=== PATIENT | female | born 1955 | race Caucasian/White ===

== ENCOUNTER 2016-11-12 15:22 | Inpatient (IN) ==
[2016-11-12] MEDS ORDERED: Pantoprazole 40 MG VIAL IVP STA (20:31)
[2016-11-12] MEDS ORDERED: Acetaminophen 325 MG TABLET PO PRN (20:31)
[2016-11-12] MEDS ORDERED: Albuterol 2.5 MG/3 ML NEBULIZER IH PRN (20:31)
[2016-11-12] MEDS ORDERED: Benzonatate 100 MG CAPSULE PO PRN (20:31)
[2016-11-12] MEDS ORDERED: Naloxone 0.4 MG/ML INJ IVP PRN (20:31)
[2016-11-12] MEDS ORDERED: *HR* Promethazine 25 MG/ML VIAL IVP PRN (20:31)
[2016-11-12] MEDS ORDERED: *HR* Morphine 2 MG/ML SYRINGE IVP PRN (20:31)
[2016-11-12] MEDS ORDERED: 0.9 % Sodium Chloride 1,000 ML IVC SCH (20:45)
[2016-11-12 21:29] LABS: Magnesium 1.5 mg/dL (1.6-2.6); Phosphorous 3.2 mg/dL (2.3-4.7)
[2016-11-12] MEDS: *HR* OxyCODONE Immed Rel 5 MG TABLET PO PRN (22:14)
[2016-11-12] MEDS: Famotidine 20 MG TABLET PO SCH (22:15)
[2016-11-12] MEDS: *HR* Enoxaparin 30 MG/0.3 ML SYRINGE SQ SCH (22:16)
[2016-11-12] MEDS: Nicotine 21 MG PATCH.TD24 TD SCH (22:16)
[2016-11-12] MEDS: Azithromycin 500 MG in D5% in Water 250 ML IVPB SCH (22:19)
--- NOTE | 2016-11-12 23:07 | Internal Med History&Physical ---
Date of Encounter: 11/12/16 Time of Encounter: 20:30 Assessment and Plan (1) Acute on chronic respiratory failure with hypoxia and hypercapnia Status: Acute . (2) Emphysema of lung Status: Chronic . Qualifiers: Emphysema type: unspecified Qualified Code(s): J43.9 - Emphysema, unspecified (3) Systemic inflammatory response syndrome (SIRS) associated with organ dysfunction Status: Acute . (4) Venous stasis ulcer of lower extremity Status: Chronic . Qualifiers: Laterality: unspecified laterality Qualified Code(s): I83.009 - Varicose veins of unspecified lower extremity with ulcer of unspecified site (5) Morbid obesity with BMI of 60.0-69.9, adult Status: Chronic . (6) Acute exacerbation of chronic obstructive airways disease Status: Inactive . Internal Medicine - H&P: HPI Chief complaint: Difficulty breathing Admitted From: Hospital to Hospital Transfer (Hospital transfer from [facility] ED) Plans for Post Hospital Care: Home History of present illness: Ms. Mcwilliams is a 60 year old female with history significant for COPD-emphysema, asthma, type 2 diabetes mellitus, hypertension, dyslipidemia, depression/ gen anxiety, GERD, chronic musculoskeletal pain, LE venostasis/rec stasis ulcer, H/ O DVT/chr anticoagulation (Warfarin), morbid obesity, former heavy smoker([id number]) The patient was visited and interviewed and examined. Patient is admitted to [facility] as a hospital transfer from [facility] emergency department where she presented via EMS from home with complaints of Difficulty Breathing. She reports a two-month history of progressive blood unrelenting shortness of breath. She has undergone multiple courses of outpatient therapy and ED visits. Patient has known history of COPD with reports of increasing shortness of breath over a four-day period of time that prompted her to call EMS services for assistance and ultimately transferred to the ED for assessment and disposition. Prior to transfer she received bronchodilator treatments at home and one in route given via EMS services to the ED plus Solu-Medrol. She reports a persistent nonproductive cough. Fever as high as 100 degrees. Chest tightness chills malaise. She had recently been treated with a course of oral antibiotics and tapering steroids for presumed community-acquired infection described as acute bronchitis. Her current symptoms followed after completion of her course of outpatient therapy. Outpatient medical treatment compliance cannot be validated at this time. Findings in the ED: temperature 98.7, pulse 117 respiration 24 BP 145/87. O2 saturation 87% RA; 98% BiPAP. WBC 11.4 hemoglobin and platelets 363,000. MCV 77.5 MCH 22.1. RDW 19.2. Differential shows an increase in neutrophils. Arterial blood gas pH 7.29 PCO2 81 PO2 157 bicarbonate 39. O2 saturation 99% at FiO2 50% BiPAP. Metabolic panel normal except chloride 96 carbon dioxide 34 glucose 132. BUN 15 creatinine 0.7. Osmolality 291. Hepatic function normal. Albumin 3.2 total 7.6. Troponin 0.01 BNP 35. Chest x-ray demonstrated pulmonary vascular indistinctness and perihilar prominence suggesting mild interstitial pulmonary edema. Minimal bibasilar atelectasis. No pneumothorax. No pleural effusion. Heart size stable. EKG demonstrated sinus tachycardia. No acute ischemic changes. Preliminary impression suggest acute on chronic, hypoxic-hypercapnic respiratory failure secondary to acute exacerbation of chronic obstructive pulmonary disease and associated interstitial pulmonary edema/pneumonitis. Systemic inflammatory response syndrome criteria met at the time of presentation. Findings suggestive of acute bronchitis-bronchiolitis/ interstitial pneumonia. Presentation is complicated by underlying chronic hypoxic respiratory failure. The patient reports compliance with her Coumadin therapy as well as tobacco abstinence. Rule out reurrent DVT/PE. Rule out ACS/ UA/CHF. The patient presents risk for acute clinical decline and morbidity given her presenting chief complaints, findings and comorbidities. Workup and treatment will proceed comprehensively. Cumulative laboratory and radiographic data base was reviewed, considered and discussed. Pertinent ancillary medical records including ECW and PCI documentation was reviewed and considered. Given the patient's presenting concerns, past medical history, clinical findings and symptoms, she is admitted at this time will undergo further evaluation and disposition. Orders were written as per the computerized physician recorder of deeds system.......................................................................... .................... Consultative opinions will be sought as clinical circumstances justify. Pain management needs will be addressed. Laboratory and radiographic data base will be updated as appropriate. Studies include: Cultures blood urine and sputum, PT/INR, APTT, cardiac injury panel, BNP, CPK, metabolic and hematologic panel, magnesium, phosphorus, ionized calcium, thyroid panel, lipid profile, A1c, C-pep, CRP, sed rate, respiratory infection profile, respiratory virus panel, blood gas, UA, lactic acid, serologies, etc. Precautions: Aspiration, fall, delirium protocol/surveillance initiated. Telemetry with continuous hemodynamic monitoring and pulse oximetry initiated. Empiric antibody coverage: Intravenous Rocephin and azithromycin pending culture data. Special studies: CT/CTA chest, chest x-ray, telemetry, EKG, LE venous duplex, echocardiogram. Pulmonary toilet: Incentive spirometry, aerosol bronchodilator, mucolytic, antitussive, supplemental oxygen. Corticosteroid therapy. CPAP/BiPAP supplemental oxygen delivery. Aerosol Mucomyst therapy. Fluid and electrolyte repletion efforts will proceed. Careful attention to fluid balance and renal recovery will be emphasized. Avoidance of nephrotoxic exposure and adverse drug drug interaction in the setting of impaired renal function will be monitored closely. Acute coronary syndrome protocol/surveillance initiated. DVT and PUD prophylaxis initiated: PPI therapy, intermittent pneumatic foot pumps. SQ heparin/Lovenox pending therapeutic INR per Coumadin dosing. Early ambulation will be encouraged. Pharmacy to provide Coumadin dosing adjustment based on therapeutic INR measurement (~2-3). Wound Care consultation. Immunization updates recommended. Influenza and pneumococcal vaccinations as part of ongoing preventative healthcare recommendations strongly recommended. Smoking cessation counseling briefly addressed. Patient is a former heavy smoker. Advanced care directive discussion briefly addressed. Patient does not declare any healthcare restrictions at this time. Cardiovascular risk appraisal and cardiovascular risk reduction efforts will be emphasized. Physical and occupational therapy consulted to evaluate patient's functional capacity and progress mobility as her circumstances permit. Sliding scale insulin coverage, ADA dietary restraint and schedule an as-needed basis fingerstick glucose assessments were initiated. Nutrition/diabetes education counseling may be considered as circumstances justify. Outpatient medication schedules will be reviewed, confirmed and facilitated as appropriate. Reconciliation of home treatments including adjustments, substitutions and reintroduction into the treatment regimen will address necessary maintenance therapies for chronic pre-existing medical conditions. Plan of care has been reviewed and discussed in detail with the patient. Questions addressed. Hospital course will be dependent upon clinical findings, treatment response and potential consultative interventions. Patient is at risk for further acute clinical decline and morbidity due to her presenting chief complaints, findings and comorbid conditions. Condition is serious. Prognosis is guarded. CODE STATUS is full. Past Med Surg Social Fam HX - Past Medical History Source: old records reviewed Medical history: arthritis, asthma, COPD, diabetes, GERD, hyperlipidemia, hypertension, osteoporosis, venous stasis, other Psychiatric history: anxiety, depression, other - Past Surgical History Surgical History: other - Social History Smoking Status: Former smoker Smokeless Tobacco Status: No Alcohol use: none Drug use: none Occupational status: disabled Current living situation: With Family Activity Level: Independent ambulation, Mostly sedentary Recent Out of Country Travel Within the Last 8 Weeks: No Exposure or Possible Exposure to Illness During Travel: No Internal Medicine - H&P: Meds Cyclobenzaprine [Flexeril] 10 mg PO TID 08/21/16 [History] FLUoxetine HCl [Prozac] 20 mg PO DAILY 08/21/16 [History] Fluticasone/Salmeterol [Advair 250-50 Diskus] 1 each IH BID 08/21/16 [History] Liraglutide [Victoza 2-Dany] 1.8 ml SQ DAILY 08/21/16 [History] Montelukast [Singulair] 10 mg PO DAILY 08/21/16 [History] OxyCODONE/APAP 7.5/325 [Percocet 7.5/325 MG] 1 each PO Q6HR PRN 08/21/16 [ History] Promethazine [Phenergan] 25 mg PO BID PRN 08/21/16 [History] Ipratropium Neb [Atrovent Neb] 0.5 mg IH Q6HR #60 vial.neb 09/12/16 [Rx] Losartan Potassium [Cozaar] 50 mg PO DAILY 09/12/16 [History] Pravastatin Sodium [Pravachol] 40 mg PO DAILY 09/12/16 [History] Albuterol Sulfate [Proair Respiclick] 90 mcg IH Q4-6H PRN #1 aer.pow.ba [Rx] PredniSONE 40 mg PO DAILY #30 tablet 10/27/16 [Rx] Albuterol Neb [Proventil Neb] 2.5 mg IH QID PRN 11/13/16 [History] Esomeprazole Magnesium [Nexium 24Hr] 22.3 mg PO DAILY 11/13/16 [History] Oxygen 2 l NS HS 11/13/16 [History] Insulin Regular U-500 [HumuLIN R U-500] 60 unit SQ TIDWM 11/14/16 [History] Alprazolam [Xanax 0.25 MG Tablet] 0.25 mg PO HS PRN #7 tablet 11/18/16 [Rx] Levofloxacin 750 mg PO 1300 #3 tablet 11/18/16 [Rx] Rivaroxaban [Xarelto] 20 mg PO 1700 #30 tablet 11/18/16 [Rx] Allergies cetirizine [From [facility]] Allergy (Verified 11/13/16 08:44) Swelling of Lip/Tongue/Throat codeine Adverse Reaction (Verified 11/13/16 08:44) Nausea lisinopril Adverse Reaction (Verified 11/13/16 08:44) Cough All Systems PM: A 10-system review of systems was performed and is negative for pertinent findings except as documented above in the HPI. - Constitutional Constitutional: as per HPI, chills, fever(s), malaise, no night sweats - EENT Eyes: as per HPI, no change in vision, no discharge, no pain, no photophobia Ears: as per HPI, no ear discharge, no ear pain, no tinnitus Nose, mouth and throat: as per HPI, nasal congestion, post-nasal drip, no dysphagia, no nasal discharge, no neck pain, no sore throat - Cardiovascular Cardiovascular ROS IM: as per HPI, edema, no chest pain, no diaphoresis, no dyspnea, no lightheadedness, no palpitations, no syncope - Respiratory Respiratory: as per HPI, cough, dyspnea, dyspnea on exertion, wheezing, chest congestion, no hemoptysis, no excessive phlegm production - Gastrointestinal Gastrointestinal: as per HPI, no abdominal pain, no diarrhea, no hematemesis, no hematochezia, no melena, no nausea, no vomiting - Genitourinary Genitourinary: as per HPI, no change in urinary stream, no dysuria, no flank pain, no hematuria - Musculoskeletal Musculoskeletal ROS IM: as per HPI, no numbness, no tingling - Integumentary Integumentary IM: as per HPI, erythema, non-healing lesions, skin ulcer, other, no rash, no unusual bruising - Neurological Neurological ROS: as per HPI, no confusion, no convulsions, no focal weakness, no numbness, no tingling, no tremor(s) - Psychiatric Psychiatric: as per HPI - Endocrine Endocrine IM: as per HPI - Hematologic/Lymphatic Hematologic/Lymphatic: as per HPI, no easy bruising - Allergic/Immunologic Allergic/Immunologic: as per HPI - Constitutional Vitals: Temp Pulse Resp BP Pulse Ox 97.7 F 107 24 132/74 94 L 11/12/16 19:18 11/12/16 19:18 11/12/16 19:18 11/12/16 19:18 11/12/16 19:18 General appearance: Present: mild distress, A&O X 3, morbidly obese, answers questions appropriately - Head Head exam: Present: atraumatic, normocephalic - Eye Eye exam: Present: EOMI, PERRL, conjuntiva pink, sclera anicteric Pupils: Present: normal accommodation, PERRL - ENT ENT exam: Present: mucous membranes moist, normal oropharynx - Neck Neck exam general surgery: Present: full ROM, supple, trachea midline. Absent: lymphadenopathy - Respiratory Respiratory exam: Present: chest wall tenderness, decreased breath sounds, rhonchi, wheezes. Absent: accessory muscle use, rales - Cardiovascular Cardiovascular exam: Present: distant heart sounds, RRR, +S1, +S2. Absent: diastolic murmur, gallop, rubs, systolic murmur - GI/Abdominal GI/Abdominal exam: Present: diminished bowel sounds, distended, soft, no peritoneal signs. Absent: tenderness - Extremities Exam Extremities exam: Present: full ROM, warm, radial pulses palpable and symetrical. Absent: calf tenderness, cyanotic, pedal edema - Neurological Exam Neurological exam: Present: alert, CN II-XII intact, oriented X3, no focal deficits. Absent: pronater drift, facial droop, speech deficit - Psychiatric Psychiatric exam: Present: normal affect, normal mood - Skin Skin exam: Present: dry, intact, warm. Absent: petechiae, rash, urticaria, vesicles Internal Med - H&P Results - Labs CBC & Chem 7: 11/18/16 05:44 11/18/16 05:44 Labs: Cardiac Enzymes 11/12/16 Range/Units 21:10 Troponin I 0.03 (0-0.03) ng/mL Abnormal lab results RBC 5.10 M/mcL (3.82-4.97) H 11/18/16 05:44 Hgb 11.2 g/dL (11.5-15.4) L 11/18/16 05:44 MCV 75.3 fL (83.0-100.0) L 11/18/16 05:44 MCH 22.0 pg (28.0-33.3) L 11/18/16 05:44 MCHC 29.2 g/dL (31.6-35.5) L 11/18/16 05:44 RDW 19.1 % (11.5-14.5) H 11/18/16 05:44 Hypochromasia Present (Not Present) A 11/16/16 05:04 Anisocytosis 1+ (Not Present) A 11/16/16 05:04 Microcytosis Present (Not Present) A 11/16/16 05:04 ESR >= 130 mm/hr (0-15) H 11/13/16 04:03 PT 15.2 Seconds (9.4-12.1) H 11/17/16 04:14 ABG pCO2 74 mmHg (35-45) H* 11/14/16 10:45 ABG pO2 76 mmHg (85-104) L 11/14/16 10:45 ABG HCO3 40.9 mEQ/L (21-27) H 11/14/16 10:45 ABG Total CO2 43.2 mEq/L (20-26) H 11/14/16 10:45 ABG O2 Saturation 94 % (95-98) L 11/14/16 10:45 ABG Base Excess 12.3 mEq/L (-2.0 to 3.0) H 11/14/16 10:45 Chloride 94 mEq/L (98-109) L 11/18/16 05:44 Carbon Dioxide 30 mEq/L (19-29) H 11/18/16 05:44 BUN 24 mg/dL (7-20) H 11/18/16 05:44 BUN/Creatinine Ratio 34 (6-26) H 11/18/16 05:44 Glucose 386 mg/dL (70-99) H 11/18/16 05:44 POC Glucose 347 (58-89) H 11/18/16 07:59 Hemoglobin A1c 6.3 % (-5.6) H 11/13/16 04:03 Calculated Osmolality 302 (280-300) H 11/18/16 05:44 Magnesium 1.5 mg/dL (1.6-2.6) L 11/12/16 21:10 C-Reactive Protein 35 mg/L (Less than 5) H 11/12/16 21:10 Albumin 3.1 g/dL (3.5-5.0) L 11/18/16 05:44 Globulin 4.1 g/dL (2.4-3.5) H 11/18/16 05:44 Albumin/Globulin Ratio 0.8 (1.1-2.2) L 11/18/16 05:44 LDL Cholesterol, Calc 121 mg/dL (0-99) H 11/13/16 04:03 Urine Protein 100 mg/dL (Neg-Trace) H 11/12/16 Unknown Urine Glucose (UA) 100 mg/dL (Normal) H 11/12/16 Unknown Urine Blood Moderate (Negative) H 11/12/16 Unknown Urine Microscopic RBC 30-50 per hpf (0-3) H 11/12/16 Unknown Ur Squamous Epith Cells Many per lpf (None-Few) H 11/12/16 Unknown Laboratory Last Values WBC 8.3 K/mcL (4.3-11.1) 11/18/16 05:44 RBC 5.10 M/mcL (3.82-4.97) H 11/18/16 05:44 Hgb 11.2 g/dL (11.5-15.4) L 11/18/16 05:44 Hct 38.4 % (35.3-44.9) 11/18/16 05:44 MCV 75.3 fL (83.0-100.0) L 11/18/16 05:44 MCH 22.0 pg (28.0-33.3) L 11/18/16 05:44 MCHC 29.2 g/dL (31.6-35.5) L 11/18/16 05:44 RDW 19.1 % (11.5-14.5) H 11/18/16 05:44 Plt Count 298 K/mcL (140-400) 11/18/16 05:44 MPV 10.6 fL (9.4-12.4) 11/18/16 05:44 Immature Gran % 1.1 % (0-4) 11/18/16 05:44 Seg Neutrophils % 87.5 % 11/18/16 05:44 Lymphocytes % 8.6 % 11/18/16 05:44 Monocytes % 2.7 % 11/18/16 05:44 Eosinophils % 0.0 % 11/18/16 05:44 Basophils % 0.1 % 11/18/16 05:44 Neutrophils # 7.3 K/mcL (1.6-8.9) 11/18/16 05:44 Lymphocytes # 0.7 K/mcL (0.6-4.6) 11/18/16 05:44 Monocytes # 0.2 K/mcL (0.0-1.3) 11/18/16 05:44 Eosinophils # 0.0 K/mcL (0.0-0.6) 11/18/16 05:44 Basophils # 0.0 K/mcL (0.0-0.2) 11/18/16 05:44 Platelet Estimate Normal (Normal) 11/16/16 05:04 Hypochromasia Present (Not Present) A 11/16/16 05:04 Anisocytosis 1+ (Not Present) A 11/16/16 05:04 Microcytosis Present (Not Present) A 11/16/16 05:04 ESR >= 130 mm/hr (0-15) H 11/13/16 04:03 PT 15.2 Seconds (9.4-12.1) H 11/17/16 04:14 INR 1.4 11/17/16 04:14 ABG pH 7.35 pH Units (7.32-7.45) 11/14/16 10:45 ABG pCO2 74 mmHg (35-45) H* 11/14/16 10:45 ABG pO2 76 mmHg (85-104) L 11/14/16 10:45 ABG HCO3 40.9 mEQ/L (21-27) H 11/14/16 10:45 ABG Total CO2 43.2 mEq/L (20-26) H 11/14/16 10:45 ABG O2 Saturation 94 % (95-98) L 11/14/16 10:45 ABG Base Excess 12.3 mEq/L (-2.0 to 3.0) H 11/14/16 10:45 Liter Flow 4 L/MIN 11/14/16 10:45 Blood Gas Modality NC 11/14/16 10:45 Inspired O2 36 % 11/14/16 10:45 Sodium 136 mEq/L (136-145) 11/18/16 05:44 Potassium 4.4 mEq/L (3.5-4.5) 11/18/16 05:44 Chloride 94 mEq/L (98-109) L 11/18/16 05:44 Carbon Dioxide 30 mEq/L (19-29) H 11/18/16 05:44 BUN 24 mg/dL (7-20) H 11/18/16 05:44 Creatinine 0.71 mg/dL (0.57-1.11) 11/18/16 05:44 Est GFR ( Amer) > 60 (> 60) 11/18/16 05:44 Est GFR (Non-Af Amer) > 60 (> 60) 11/18/16 05:44 BUN/Creatinine Ratio 34 (6-26) H 11/18/16 05:44 Glucose 386 mg/dL (70-99) H 11/18/16 05:44 POC Glucose 347 (58-89) H 11/18/16 07:59 Est Mean Plasma Glucose 134 mg/dl 11/13/16 04:03 Hemoglobin A1c 6.3 % (-5.6) H 11/13/16 04:03 Calculated Osmolality 302 (280-300) H 11/18/16 05:44 Lactic Acid 1.5 mmol/L (0.5-2.2) 11/12/16 21:10 Calcium 9.5 mg/dL (8.6-10.8) 11/18/16 05:44 Phosphorus 3.2 mg/dL (2.3-4.7) 11/12/16 21:10 Magnesium 1.5 mg/dL (1.6-2.6) L 11/12/16 21:10 Total Bilirubin 0.5 mg/dL (0.2-1.2) 11/18/16 05:44 AST 9 Units/L (5-34) 11/18/16 05:44 ALT 17 Units/L (0-55) 11/18/16 05:44 Alkaline Phosphatase 87 Units/L (38-126) 11/18/16 05:44 Troponin I 0.01 ng/mL (0-0.03) 11/13/16 09:43 C-Reactive Protein 35 mg/L (Less than 5) H 11/12/16 21:10 B-Natriuretic Peptide 75 pg/mL (0-100) 11/13/16 04:03 Serum Total Protein 7.2 g/dL (6.0-8.3) 11/18/16 05:44 Albumin 3.1 g/dL (3.5-5.0) L 11/18/16 05:44 Globulin 4.1 g/dL (2.4-3.5) H 11/18/16 05:44 Albumin/Globulin Ratio 0.8 (1.1-2.2) L 11/18/16 05:44 Triglycerides 118 mg/dL (< 150) 11/13/16 04:03 Cholesterol 195 mg/dL (< 200) 11/13/16 04:03 LDL Cholesterol, Calc 121 mg/dL (0-99) H 11/13/16 04:03 VLDL Cholesterol, Calc 24 mg/dL (< 31) 11/13/16 04:03 HDL Cholesterol 50 mg/dL (40-59) 11/13/16 04:03 Cholesterol/HDL Ratio 3.9 (0-4.9) 11/13/16 04:03 TSH 0.602 mcIU/mL (0.350-4.840) 11/13/16 04:03 Urine Color Yellow (Yellow) 11/12/16 Unknown Urine Clarity Clear (Clear) 11/12/16 Unknown Urine pH 6.0 pH Units (5.0-8.0) 11/12/16 Unknown Ur Specific [place] 1.019 (1.010-1.025) 11/12/16 Unknown Urine Protein 100 mg/dL (Neg-Trace) H 11/12/16 Unknown Urine Glucose (UA) 100 mg/dL (Normal) H 11/12/16 Unknown Urine Ketones Negative mg/dL (Negative) 11/12/16 Unknown Urine Blood Moderate (Negative) H 11/12/16 Unknown Urine Nitrite Negative (Negative) 11/12/16 Unknown Urine Bilirubin Negative (Negative) 11/12/16 Unknown Urine Urobilinogen Normal mg/dL (Normal) 11/12/16 Unknown Ur Leukocyte Esterase Negative (Negative) 11/12/16 Unknown Urine Microscopic RBC 30-50 per hpf (0-3) H 11/12/16 Unknown Urine Microscopic WBC 0-3 per hpf (0-3) 11/12/16 Unknown Ur Squamous Epith Cells Many per lpf (None-Few) H 11/12/16 Unknown Urine Bacteria None Seen per hpf (None-Few) 11/12/16 Unknown Hyaline Casts None Seen per lpf (None-Few) 11/12/16 Unknown - Impressions Vital Signs Temp Pulse Resp BP Pulse Ox 11/12/16 19:18 97.7 F 107 24 132/74 94 L 11/12/16 18:55 20 94 L Intake and Output 11/12/16 11/12/16 11/12/16 07:59 15:59 23:59 Output Total 450 / 450 Balance -450 / -450 Output: Catheter 450 / 450 Other: Weight 155.8 kg Blood Glucose* 288 Patient Weight 11/12/16 23:59 Weight 155.8 kg Cardiac Enzymes 11/12/16 Range/Units 21:10 Troponin I 0.03 (0-0.03) ng/mL Abnormal lab results Magnesium 1.5 mg/dL (1.6-2.6) L 11/12/16 21:10 C-Reactive Protein 35 mg/L (Less than 5) H 11/12/16 21:10 Allergies Allergy/AdvReac Type Severity Reaction Status Date / Time cetirizine [From [facility]] Allergy Swelling Verified 10/27/16 14:31 of Lip/Tongue/Throat codeine AdvReac Nausea Verified 10/27/16 14:31 lisinopril AdvReac Cough Verified 10/27/16 14:31 Laboratory Results Lactic Acid 1.5 mmol/L (0.5-2.2) 11/12/16 21:10 Phosphorus 3.2 mg/dL (2.3-4.7) 11/12/16 21:10 Magnesium 1.5 mg/dL (1.6-2.6) L 11/12/16 21:10 Troponin I 0.03 ng/mL (0-0.03) 11/12/16 21:10 C-Reactive Protein 35 mg/L (Less than 5) H 11/12/16 21:10 Microbiology 11/12/16 21:07 Peripheral Venipuncture Blood Culture - Final No growth. 11/12/16 21:10 Peripheral Venipuncture Blood Culture - Final No growth. 11/14/16 20:30 Sputum Sputum Culture - Final Laboratory Results WBC 8.3 K/mcL (4.3-11.1) 11/18/16 05:44 RBC 5.10 M/mcL (3.82-4.97) H 11/18/16 05:44 Hgb 11.2 g/dL (11.5-15.4) L 11/18/16 05:44 Hct 38.4 % (35.3-44.9) 11/18/16 05:44 MCV 75.3 fL (83.0-100.0) L 11/18/16 05:44 MCH 22.0 pg (28.0-33.3) L 11/18/16 05:44 MCHC 29.2 g/dL (31.6-35.5) L 11/18/16 05:44 RDW 19.1 % (11.5-14.5) H 11/18/16 05:44 Plt Count 298 K/mcL (140-400) 11/18/16 05:44 MPV 10.6 fL (9.4-12.4) 11/18/16 05:44 Immature Gran % 1.1 % (0-4) 11/18/16 05:44 Seg Neutrophils % 87.5 % 11/18/16 05:44 Lymphocytes % 8.6 % 11/18/16 05:44 Monocytes % 2.7 % 11/18/16 05:44 Eosinophils % 0.0 % 11/18/16 05:44 Basophils % 0.1 % 11/18/16 05:44 Neutrophils # 7.3 K/mcL (1.6-8.9) 11/18/16 05:44 Lymphocytes # 0.7 K/mcL (0.6-4.6) 11/18/16 05:44 Monocytes # 0.2 K/mcL (0.0-1.3) 11/18/16 05:44 Eosinophils # 0.0 K/mcL (0.0-0.6) 11/18/16 05:44 Basophils # 0.0 K/mcL (0.0-0.2) 11/18/16 05:44 Platelet Estimate Normal (Normal) 11/16/16 05:04 Hypochromasia Present (Not Present) A 11/16/16 05:04 Anisocytosis 1+ (Not Present) A 11/16/16 05:04 Microcytosis Present (Not Present) A 11/16/16 05:04 ESR >= 130 mm/hr (0-15) H 11/13/16 04:03 PT 15.2 Seconds (9.4-12.1) H 11/17/16 04:14 INR 1.4 11/17/16 04:14 ABG pH 7.35 pH Units (7.32-7.45) 11/14/16 10:45 ABG pCO2 74 mmHg (35-45) H* 11/14/16 10:45 ABG pO2 76 mmHg (85-104) L 11/14/16 10:45 ABG HCO3 40.9 mEQ/L (21-27) H 11/14/16 10:45 ABG Total CO2 43.2 mEq/L (20-26) H 11/14/16 10:45 ABG O2 Saturation 94 % (95-98) L 11/14/16 10:45 ABG Base Excess 12.3 mEq/L (-2.0 to 3.0) H 11/14/16 10:45 Liter Flow 4 L/MIN 11/14/16 10:45 Blood Gas Modality NC 11/14/16 10:45 Inspired O2 36 % 11/14/16 10:45 Sodium 136 mEq/L (136-145) 11/18/16 05:44 Potassium 4.4 mEq/L (3.5-4.5) 11/18/16 05:44 Chloride 94 mEq/L (98-109) L 11/18/16 05:44 Carbon Dioxide 30 mEq/L (19-29) H 11/18/16 05:44 BUN 24 mg/dL (7-20) H 11/18/16 05:44 Creatinine 0.71 mg/dL (0.57-1.11) 11/18/16 05:44 Est GFR ( Amer) > 60 (> 60) 11/18/16 05:44 Est GFR (Non-Af Amer) > 60 (> 60) 11/18/16 05:44 BUN/Creatinine Ratio 34 (6-26) H 11/18/16 05:44 Glucose 386 mg/dL (70-99) H 11/18/16 05:44 POC Glucose 347 (58-89) H 11/18/16 07:59 Est Mean Plasma Glucose 134 mg/dl 11/13/16 04:03 Hemoglobin A1c 6.3 % (-5.6) H 11/13/16 04:03 Calculated Osmolality 302 (280-300) H 11/18/16 05:44 Lactic Acid 1.5 mmol/L (0.5-2.2) 11/12/16 21:10 Calcium 9.5 mg/dL (8.6-10.8) 11/18/16 05:44 Phosphorus 3.2 mg/dL (2.3-4.7) 11/12/16 21:10 Magnesium 1.5 mg/dL (1.6-2.6) L 11/12/16 21:10 Total Bilirubin 0.5 mg/dL (0.2-1.2) 11/18/16 05:44 AST 9 Units/L (5-34) 11/18/16 05:44 ALT 17 Units/L (0-55) 11/18/16 05:44 Alkaline Phosphatase 87 Units/L (38-126) 11/18/16 05:44 Troponin I 0.01 ng/mL (0-0.03) 11/13/16 09:43 C-Reactive Protein 35 mg/L (Less than 5) H 11/12/16 21:10 B-Natriuretic Peptide 75 pg/mL (0-100) 11/13/16 04:03 Serum Total Protein 7.2 g/dL (6.0-8.3) 11/18/16 05:44 Albumin 3.1 g/dL (3.5-5.0) L 11/18/16 05:44 Globulin 4.1 g/dL (2.4-3.5) H 11/18/16 05:44 Albumin/Globulin Ratio 0.8 (1.1-2.2) L 11/18/16 05:44 Triglycerides 118 mg/dL (< 150) 11/13/16 04:03 Cholesterol 195 mg/dL (< 200) 11/13/16 04:03 LDL Cholesterol, Calc 121 mg/dL (0-99) H 11/13/16 04:03 VLDL Cholesterol, Calc 24 mg/dL (< 31) 11/13/16 04:03 HDL Cholesterol 50 mg/dL (40-59) 02/02/17 04:03 Cholesterol/HDL Ratio 3.9 (0-4.9) 11/13/16 04:03 TSH 0.602 mcIU/mL (0.350-4.840) 11/13/16 04:03 Urine Color Yellow (Yellow) 11/12/16 Unknown Urine Clarity Clear (Clear) 11/12/16 Unknown Urine pH 6.0 pH Units (5.0-8.0) 11/12/16 Unknown Ur Specific [place] 1.019 (1.010-1.025) 11/12/16 Unknown Urine Protein 100 mg/dL (Neg-Trace) H 11/12/16 Unknown Urine Glucose (UA) 100 mg/dL (Normal) H 11/12/16 Unknown Urine Ketones Negative mg/dL (Negative) 11/12/16 Unknown Urine Blood Moderate (Negative) H 11/12/16 Unknown Urine Nitrite Negative (Negative) 11/12/16 Unknown Urine Bilirubin Negative (Negative) 11/12/16 Unknown Urine Urobilinogen Normal mg/dL (Normal) 11/12/16 Unknown Ur Leukocyte Esterase Negative (Negative) 11/12/16 Unknown Urine Microscopic RBC 30-50 per hpf (0-3) H 11/12/16 Unknown Urine Microscopic WBC 0-3 per hpf (0-3) 11/12/16 Unknown Ur Squamous Epith Cells Many per lpf (None-Few) H 11/12/16 Unknown Urine Bacteria None Seen per hpf (None-Few) 11/12/16 Unknown Hyaline Casts None Seen per lpf (None-Few) 11/12/16 Unknown
[2016-11-12 23:55] LABS: Bilirubin,Urine Negative (Negative); Blood,Urine Moderate (Negative); Clarity,Urine Clear (Clear); Color,Urine Yellow (Yellow); Glucose,Urine (UA) 100 mg/dL (Normal); Ketones,Urine Negative (Negative); Leukocyte Esterase,Urine Negative (Negative); Nitrite,Urine Negative (Negative); Protein,Urine 100 mg/dL (Neg-Trace); Specific Gravity,Urine 1.019 (1.010-1.025); Urobilinogen,Urine Normal (Normal)
[2016-11-12 23:56] LABS: Bacteria,Urine None Seen per hpf (None-Few); Hyaline Casts,Urine None Seen per lpf (None-Few); RBC,Urine 30-50 per hpf (0-3); Squamous Epithelial Cell,Urine Many per lpf (None-Few); WBC,Urine 0-3 per hpf (0-3)
[2016-11-13] MEDS: Azithromycin 500 MG in D5% in Water 250 ML IVPB SCH
[2016-11-13] MEDS ORDERED: *HR* Dextrose 50 % in Water (Syg) 50 ML SYRINGE IVP PRN (00:38)
[2016-11-13] MEDS ORDERED: Dextrose Gel 15 GM PO PRN ×2 (00:38)
[2016-11-13] MEDS ORDERED: D5% in Water 1,000 ML IV PRN (00:38)
[2016-11-13 05:08] LABS: Hematocrit 36.1 % (35.3-44.9); Hemoglobin 10.3 g/dL (11.5-15.4); Mean Corpuscular HGB Conc 28.5 g/dL (31.6-35.5); Mean Corpuscular Hemoglobin 22.3 pg (28.0-33.3); Mean Corpuscular Volume 78.1 fL (83.0-100.0); Mean Platelet Volume 9.8 fL (9.4-12.4); Monocytes # 0.2 K/mcL (0.0-1.3); Platelet Count 327 K/mcL (140-400); Red Blood Count 4.62 M/mcL (3.82-4.97)
[2016-11-13 05:11] LABS: Alanine Aminotransferase 17 Units/L (0-55); Albumin/Globulin Ratio 0.6 (1.1-2.2); Alkaline Phosphatase 107 Units/L (38-126); Aspartate Amino Transferase 16 Units/L (5-34); BUN/Creatinine Ratio 19 (6-26); Bilirubin,Total 0.1 mg/dL (0.2-1.2); Blood Urea Nitrogen 13 mg/dL (7-20); Calcium 9.5 mg/dL (8.6-10.8); Carbon Dioxide 34 mEq/L (19-29); Chloride 96 mEq/L (98-109); Chol/HDL Ratio 3.9 (0-4.9); Cholesterol 195 mg/dL (< 200); Globulin 4.7 g/dL (2.4-3.5); Glucose 286 mg/dL (70-99); HDL Cholesterol 50 mg/dL (40-59); LDL Cholesterol,Calculated 121 mg/dL (0-99); Osmolality,Calculated 301 (280-300); Potassium 4.4 mEq/L (3.5-4.5); Sodium 140 mEq/L (136-145); Total Protein 7.7 g/dL (6.0-8.3); Triglycerides 118 mg/dL (< 150); eGFR For African Americans > 60 (> 60); eGFR For Non-African Americans > 60 (> 60)
[2016-11-13 05:16] LABS: Hemoglobin A1C 6.3 %
[2016-11-13 05:33] LABS: Thyroid Stimulating Hormone 0.602 mcIU/mL (0.350-4.840)
[2016-11-13 06:08] LABS: Hypochromasia Present (Not Present); Lymphocytes # 0.7 K/mcL (0.6-4.6); Platelet Estimate Normal (Normal)
[2016-11-13 06:10] LABS: Microcytosis Present (Not Present)
[2016-11-13] MEDS: Insulin LISPRO 300 UNITS/3 ML VIAL SQ SCH ×5 (06:11→20:58)
[2016-11-13] MEDS: *HR* Enoxaparin 30 MG/0.3 ML SYRINGE SQ SCH ×2 (06:14→20:52)
[2016-11-13] MEDS ORDERED: INSULIN HUMAN REGULAR SQ SCH (09:00)
[2016-11-13] MEDS ORDERED: predniSONE 20 MG TABLET PO SCH (09:00)
[2016-11-13] MEDS ORDERED: Insulin DETEMIR 100 UNIT/ML X5UNITS SQ SCH ×2 (09:00→21:00)
[2016-11-13] MEDS: Nicotine 21 MG PATCH.TD24 TD SCH (09:33)
[2016-11-13] MEDS: FLUoxetine 20 MG CAPSULE PO SCH (09:42)
[2016-11-13] MEDS: Famotidine 20 MG TABLET PO SCH (09:42)
[2016-11-13] MEDS: (Liraglutide [Victoza 2-Pak] 1.8 ML) SQ SCH (10:06)
[2016-11-13] MEDS ORDERED: ALPRAZolam 0.5 MG TABLET PO PRN (11:00)
[2016-11-13] MEDS ORDERED: methylPREDNISolone 125 MG/2 ML VIAL IVP ONE ×2 (13:11→20:37)
[2016-11-13] MEDS ORDERED: Ipratropium/Albuterol Neb 3 ML IH SCH (13:15)
[2016-11-13] MEDS: ALPRAZolam 0.5 MG TABLET PO PRN (14:14)
[2016-11-13] MEDS: Levofloxacin 750 MG/150 ML 750 MG/150 ML BAG IVPB SCH (14:15)
[2016-11-13] MEDS: Ipratropium/Albuterol Neb 3 ML IH SCH ×2 (16:29→21:27)
[2016-11-13] MEDS: Piperacillin/Tazobactam 3.375 GM in D5% in Water (Mini-Bag+) 100 ML IVPB SCH (16:30)
[2016-11-13 16:41] LABS: ABG Base Excess 12.8 mEq/L (-2.0 to 3.0); ABG HCO3 42.3 mEQ/L (21-27); ABG Oxygen Saturation 100 % (95-98); ABG PH 7.31 pH Units (7.32-7.45); ABG PO2 204 mmHg (85-104); ABG TCO2 44.9 mEq/L (20-26)
[2016-11-13 16:42] LABS: ABG PCO2 84 mmHg (35-45)
[2016-11-13 16:43] LABS: Blood Gas FiO2 40 %
--- NOTE | 2016-11-13 16:56 | Internal Med Progress Note ---
Date of Encounter: 11/14/16 Time of Encounter: 16:54 - Assessment and plan (1) Acute on chronic respiratory failure with hypoxia and hypercapnia Current Visit: Yes Status: Acute Assessment and plan: Admitted with acute on chronic respiratory failure. Patient has a hypercapnia. Baseline PCO2 is in 70s. Repeat blood gas has improved as compared to the morning. will continue same treatment and will update. (2) Venous stasis ulcer of lower extremity Current Visit: Yes Status: Chronic Assessment and plan: chronic ulcer on lower extremity. has pseudomonas in the same. will start antipsudomonal abx Qualifiers: Laterality: unspecified laterality Qualified Code(s): I83.009 - Varicose veins of unspecified lower extremity with ulcer of unspecified site (3) Emphysema of lung Current Visit: Yes Status: Chronic Assessment and plan: Exacerbation of COPD - Antibiotics Methyl prednisone BDAs Qualifiers: Emphysema type: unspecified Qualified Code(s): J43.9 - Emphysema, unspecified - Subjective Interval history: seen and examined. Still SOB family at bedside. denies chest pain and Abdominal pain. - Constitutional Vitals: Temp Pulse Resp BP Pulse Ox 98 F 105 32 154/91 100 11/13/16 15:17 11/13/16 15:17 11/13/16 16:30 11/13/16 15:17 11/13/16 16:30 General appearance: Present: A&O X 3, morbidly obese, pleasant, answers questions appropriately - Head Head exam: Present: atraumatic, normocephalic - Eye Eye exam: Present: PERRL, conjuntiva pink, sclera anicteric Pupils: Present: PERRL - Neck Neck exam general surgery: Present: supple, trachea midline. Absent: lymphadenopathy - Respiratory Respiratory exam: Present: CTAB, rhonchi. Absent: accessory muscle use, rales, wheezes - Cardiovascular Cardiovascular exam: Present: RRR, +S1, +S2. Absent: diastolic murmur, gallop, rubs, systolic murmur - GI/Abdominal GI/Abdominal exam: Present: normal bowel sounds, soft, no peritoneal signs. Absent: distended, tenderness - Extremities Exam Extremities exam: Present: warm, radial pulses palpable and symetrical. Absent : calf tenderness, cyanotic, pedal edema - Neurological Exam Neurological exam: Present: CN II-XII intact, oriented X3, no focal deficits. Absent: pronater drift, facial droop, speech deficit - Skin Skin exam: Present: dry, intact Internal Medicine: Result - Labs CBC & Chem 7: 11/13/16 04:03 11/13/16 04:03 Labs: Short CBC 11/13/16 Range/Units 04:03 WBC 5.9 (4.3-11.1) K/mcL Hgb 10.3 L (11.5-15.4) g/dL Hct 36.1 (35.3-44.9) % Plt Count 327 (140-400) K/mcL Neutrophils # 5.0 (1.6-8.9) K/mcL BMP 11/13/16 04:03 Sodium 140 Potassium 4.4 Chloride 96 L Carbon Dioxide 34 H BUN 13 Creatinine 0.67 Glucose 286 H Calcium 9.5 Cardiac Enzymes 11/12/16 11/13/16 11/13/16 Range/Units 21:10 04:03 09:43 Troponin I 0.03 0.01 0.01 (0-0.03) ng/mL Liver Function 11/13/16 Range/Units 04:03 Total Bilirubin 0.1 L (0.2-1.2) mg/dL AST 16 (5-34) Units/L ALT 17 (0-55) Units/L Alkaline Phosphatase 107 (38-126) Units/L Albumin 3.0 L (3.5-5.0) g/dL Urine 11/12/16 Range/Units Unknown Urine Color Yellow (Yellow) Urine Clarity Clear (Clear) Urine pH 6.0 (5.0-8.0) pH Units Ur Specific [place] 1.019 (1.010-1.025) Urine Protein 100 H (Neg-Trace) mg/dL Urine Glucose (UA) 100 H (Normal) mg/dL - ABG Interpretation ABG results: ABG ABG pH 7.31 pH Units (7.32-7.45) L 11/13/16 16:35 ABG pCO2 84 mmHg (35-45) H* 11/13/16 16:35 ABG pO2 204 mmHg (85-104) H 11/13/16 16:35 ABG O2 Saturation 100 % (95-98) H 11/13/16 16:35 Consult Discharge Plan - Plan Referrals: Katie Taylor MD [Primary Care Provider] -
[2016-11-13] MEDS ORDERED: *HR* Warfarin 3 MG TABLET PO SCH (18:00)
[2016-11-13] MEDS ORDERED: Warfarin perPT PO PRN (18:00)
[2016-11-13] MEDS ORDERED: *HR* Warfarin 3 MG TABLET PO ONE (18:00)
[2016-11-13] MEDS ORDERED: Nystatin POWDER 30 GM BOTTLE TP PRN (18:43)
[2016-11-13] MEDS: *HR* OxyCODONE Immed Rel 5 MG TABLET PO PRN (19:00)
[2016-11-14] MEDS: Piperacillin/Tazobactam 3.375 GM in D5% in Water (Mini-Bag+) 100 ML IVPB SCH ×4 (00:45→23:02)
[2016-11-14] MEDS: Ipratropium/Albuterol Neb 3 ML IH SCH ×4 (03:41→22:24)
[2016-11-14] MEDS: ALPRAZolam 0.5 MG TABLET PO PRN (04:42)
[2016-11-14 05:26] LABS: INR 1.2; Prothrombin Time 13.2 Seconds (9.4-12.1)
[2016-11-14] MEDS: *HR* OxyCODONE Immed Rel 5 MG TABLET PO PRN (06:06)
[2016-11-14] MEDS: *HR* Enoxaparin 30 MG/0.3 ML SYRINGE SQ SCH (06:07)
[2016-11-14] MEDS: FLUoxetine 20 MG CAPSULE PO SCH (08:37)
[2016-11-14] MEDS: MethylPREDNISolone 40 MG/ML VIAL IVP SCH ×3 (08:38→23:02)
[2016-11-14] MEDS: Insulin LISPRO 300 UNITS/3 ML VIAL SQ SCH ×4 (08:42→20:34)
[2016-11-14] MEDS: (Liraglutide [Victoza 2-Pak] 1.8 ML) SQ SCH (08:43)
[2016-11-14] MEDS: Gabapentin 300 MG CAPSULE PO SCH ×2 (09:32→20:28)
[2016-11-14 10:59] LABS: ABG Base Excess 12.3 mEq/L (-2.0 to 3.0); ABG HCO3 40.9 mEQ/L (21-27); ABG Oxygen Saturation 94 % (95-98); ABG PH 7.35 pH Units (7.32-7.45); ABG PO2 76 mmHg (85-104); ABG TCO2 43.2 mEq/L (20-26)
[2016-11-14 11:01] LABS: ABG PCO2 74 mmHg (35-45)
[2016-11-14 11:02] LABS: Blood Gas FiO2 36 %; Blood Gas Liter Flow 4 L/MIN
[2016-11-14] MEDS: Levofloxacin 750 MG/150 ML 750 MG/150 ML BAG IVPB SCH (12:48)
--- NOTE | 2016-11-14 15:27 | Electrocardiograph Report ---
[place] [id number] Test Date: 2016-11-12 Pat Name: Allison Mcwilliams Department: 2001 Room: 2N3 Gender: F Heel Varnisher: : 1955 Requested By: Samir Villalta Order Number: [id number] Reading MD: Ashli Riley Measurements Intervals [place] Rate: 121 P: 53 AL: 156 QRS: 60 QRSD: 92 T: 42 QT: 278 QTc: 350 Interpretive Statements SINUS TACHYCARDIA WITH OCCASIONAL SUPRAVENTRICULAR PREMATURE COMPLEXES ABNORMAL RHYTHM ECG Electronically Signed On 11-14-2016 15:25:37 EST by Ashli Riley
[2016-11-14] MEDS: *HR* Rivaroxaban 10 MG TABLET PO SCH (16:28)
--- NOTE | 2016-11-14 17:53 | Internal Med Progress Note ---
Date of Encounter: 11/14/16 Time of Encounter: 17:51 - Assessment and plan (1) Acute on chronic respiratory failure with hypoxia and hypercapnia Current Visit: Yes Status: Acute Assessment and plan: Admitted with acute on chronic respiratory failure. Patient has a hypercapnia. Baseline PCO2 is in 70s. Repeat blood gas has improved as compared to the morning. will continue same treatment and will update. 11/14/2016 patient is at baseline PCO2 no tremors, drowsiness, Improved ABG will continue present treatment. (2) Venous stasis ulcer of lower extremity Current Visit: Yes Status: Chronic Assessment and plan: chronic ulcer on lower extremity. has pseudomonas in the same. will start antipsudomonal abx 11/14/2016 will continue present antibiotics. Qualifiers: Laterality: unspecified laterality Qualified Code(s): I83.009 - Varicose veins of unspecified lower extremity with ulcer of unspecified site (3) Emphysema of lung Current Visit: Yes Status: Chronic Assessment and plan: Exacerbation of COPD - Antibiotics Methyl prednisone BDAs Qualifiers: Emphysema type: unspecified Qualified Code(s): J43.9 - Emphysema, unspecified - Subjective Interval history: seen and examined. Still SOB family at bedside. denies chest pain and Abdominal pain. 11/14/2016 seen and examined. no new issues. family at bedside - Constitutional Vitals: Temp Pulse Resp BP Pulse Ox 98.1 F 124 18 166/101 92 L 11/14/16 15:40 11/14/16 15:40 11/14/16 15:40 11/14/16 15:40 11/14/16 16:54 General appearance: Present: A&O X 3, morbidly obese, pleasant, answers questions appropriately - Head Head exam: Present: atraumatic, normocephalic - Eye Eye exam: Present: PERRL, conjuntiva pink, sclera anicteric Pupils: Present: PERRL - Neck Neck exam general surgery: Present: supple, trachea midline. Absent: lymphadenopathy - Respiratory Respiratory exam: Present: CTAB. Absent: accessory muscle use, rales, rhonchi, wheezes - Cardiovascular Cardiovascular exam: Present: RRR, +S1, +S2. Absent: diastolic murmur, gallop, rubs, systolic murmur - GI/Abdominal GI/Abdominal exam: Present: normal bowel sounds, soft, no peritoneal signs. Absent: distended, tenderness - Extremities Exam Extremities exam: Present: warm, radial pulses palpable and symetrical. Absent : calf tenderness, cyanotic, pedal edema - Neurological Exam Neurological exam: Present: CN II-XII intact, oriented X3, no focal deficits. Absent: pronater drift, facial droop, speech deficit - Skin Skin exam: Present: dry, intact Internal Medicine: Result - Labs CBC & Chem 7: 11/13/16 04:03 11/13/16 04:03 - ABG Interpretation ABG results: ABG ABG pH 7.35 pH Units (7.32-7.45) 11/14/16 10:45 ABG pCO2 74 mmHg (35-45) H* 11/14/16 10:45 ABG pO2 76 mmHg (85-104) L 11/14/16 10:45 ABG O2 Saturation 94 % (95-98) L 11/14/16 10:45 PT/INR, D-dimer PT 13.2 Seconds (9.4-12.1) H 11/14/16 04:31 Consult Discharge Plan - Plan Referrals: Katie Taylor MD [Primary Care Provider] -
[2016-11-14] MEDS: *HR* OxyCODONE/APAP 5/325 TABLET PO PRN (20:28)
[2016-11-14] MEDS: ALPRAZolam 0.25 MG TABLET PO PRN (21:26)
[2016-11-15] MEDS: Ipratropium/Albuterol Neb 3 ML IH SCH ×4 (04:00→22:35)
[2016-11-15] MEDS: *HR* OxyCODONE/APAP 5/325 TABLET PO PRN ×3 (05:09→22:01)
[2016-11-15 06:15] LABS: INR 1.5; Prothrombin Time 16.9 Seconds (9.4-12.1)
[2016-11-15 06:21] LABS: Basophils % 0.2 %; Hemoglobin 10.5 g/dL (11.5-15.4)
[2016-11-15 06:23] LABS: Hematocrit 37.3 % (35.3-44.9); Immature Granulocytes % 1.2 % (0-4); Lymphocytes # 1.4 K/mcL (0.6-4.6); Lymphocytes % 23.3 %; Mean Corpuscular HGB Conc 28.2 g/dL (31.6-35.5); Mean Corpuscular Hemoglobin 21.9 pg (28.0-33.3); Mean Corpuscular Volume 77.9 fL (83.0-100.0); Mean Platelet Volume 10.2 fL (9.4-12.4); Monocytes # 0.2 K/mcL (0.0-1.3); Monocytes % 3.4 %; Neutrophils # 4.2 K/mcL (1.6-8.9); Platelet Count 312 K/mcL (140-400); Red Blood Count 4.79 M/mcL (3.82-4.97); Segmented Neutrophils % 71.9 %
[2016-11-15 06:28] LABS: Alanine Aminotransferase 18 Units/L (0-55); Albumin 3.1 g/dL (3.5-5.0); Albumin/Globulin Ratio 0.7 (1.1-2.2); Alkaline Phosphatase 88 Units/L (38-126); Aspartate Amino Transferase 14 Units/L (5-34); BUN/Creatinine Ratio 31 (6-26); Bilirubin,Total 0.3 mg/dL (0.2-1.2); Blood Urea Nitrogen 23 mg/dL (7-20); Calcium 9.7 mg/dL (8.6-10.8); Carbon Dioxide 36 mEq/L (19-29); Chloride 95 mEq/L (98-109); Globulin 4.5 g/dL (2.4-3.5); Glucose 281 mg/dL (70-99); Osmolality,Calculated 306 (280-300); Potassium 4.4 mEq/L (3.5-4.5); Sodium 141 mEq/L (136-145); Total Protein 7.6 g/dL (6.0-8.3); eGFR For African Americans > 60 (> 60); eGFR For Non-African Americans > 60 (> 60)
[2016-11-15 06:57] LABS: Hypochromasia Present (Not Present); Platelet Estimate Normal (Normal)
[2016-11-15] MEDS: Gabapentin 300 MG CAPSULE PO SCH ×2 (10:25→20:58)
[2016-11-15] MEDS: FLUoxetine 20 MG CAPSULE PO SCH (10:25)
[2016-11-15] MEDS: Piperacillin/Tazobactam 3.375 GM in D5% in Water (Mini-Bag+) 100 ML IVPB SCH ×2 (10:26→15:41)
[2016-11-15] MEDS: MethylPREDNISolone 40 MG/ML VIAL IVP SCH ×2 (10:26→15:40)
[2016-11-15] MEDS: Insulin LISPRO 300 UNITS/3 ML VIAL SQ SCH ×4 (10:27→20:59)
[2016-11-15] MEDS: (Liraglutide [Victoza 2-Pak] 1.8 ML) SQ SCH (10:28)
[2016-11-15] MEDS: Levofloxacin 750 MG/150 ML 750 MG/150 ML BAG IVPB SCH (15:39)
[2016-11-15] MEDS: *HR* Rivaroxaban 10 MG TABLET PO SCH (15:40)
[2016-11-15] MEDS: Nystatin POWDER 30 GM BOTTLE TP SCH ×2 (15:40→21:00)
--- NOTE | 2016-11-15 16:16 | Internal Med Progress Note ---
Date of Encounter: 11/15/16 Time of Encounter: 16:15 - Assessment and plan (1) Acute on chronic respiratory failure with hypoxia and hypercapnia Current Visit: Yes Status: Acute Assessment and plan: Admitted with acute on chronic respiratory failure. Patient has a hypercapnia. Baseline PCO2 is in 70s. Repeat blood gas has improved as compared to the morning. will continue same treatment and will update. 11/15/2016 symptomatically better no more using BiPAP on 4 L of oxygen and maintaining her saturation to around 92% will continue present treatment. (2) Venous stasis ulcer of lower extremity Current Visit: Yes Status: Chronic Assessment and plan: chronic ulcer on lower extremity. has pseudomonas in the same. will start antipsudomonal abx 11/15/2016 Day 3 abx. lesions o the foot appears much better Qualifiers: Laterality: unspecified laterality Qualified Code(s): I83.009 - Varicose veins of unspecified lower extremity with ulcer of unspecified site (3) Emphysema of lung Current Visit: Yes Status: Chronic Assessment and plan: Exacerbation of COPD - Antibiotics Methyl prednisone BDAs Qualifiers: Emphysema type: unspecified Qualified Code(s): J43.9 - Emphysema, unspecified (4) Diabetes mellitus Current Visit: Yes Status: Acute Assessment and plan: ACHS on insulin and will observe blood sugar very closely Qualifiers: Diabetes mellitus type: type 2 Diabetes mellitus complication status: with unspecified complications Diabetes mellitus 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 Still SOB family at bedside. denies chest pain and Abdominal pain. 11/15/2016 feels much better as compare to yesterday still has SOB cough present but less frequnt as compare to yesterday complains that she has occasional itch in folds. - Constitutional Vitals: Temp Pulse Resp BP Pulse Ox 98.3 F 109 20 177/97 95 11/15/16 15:21 11/15/16 15:21 11/15/16 16:09 11/15/16 15:21 11/15/16 16:09 General appearance: Present: A&O X 3, morbidly obese, pleasant, answers questions appropriately - Head Head exam: Present: atraumatic, normocephalic - Eye Eye exam: Present: PERRL, conjuntiva pink, sclera anicteric Pupils: Present: PERRL - Neck Neck exam general surgery: Present: supple, trachea midline. Absent: lymphadenopathy - Respiratory Respiratory exam: Present: CTAB. Absent: accessory muscle use, rales, rhonchi, wheezes - Cardiovascular Cardiovascular exam: Present: RRR, +S1, +S2. Absent: diastolic murmur, gallop, rubs, systolic murmur - GI/Abdominal GI/Abdominal exam: Present: normal bowel sounds, soft, no peritoneal signs. Absent: distended, tenderness - Extremities Exam Extremities exam: Present: warm, radial pulses palpable and symetrical. Absent : calf tenderness, cyanotic, pedal edema - Neurological Exam Neurological exam: Present: CN II-XII intact, oriented X3, no focal deficits. Absent: pronater drift, facial droop, speech deficit - Skin Skin exam: Present: dry, intact Internal Medicine: Result - Labs CBC & Chem 7: 11/15/16 05:37 11/15/16 05:37 Labs: Short CBC 11/15/16 Range/Units 05:37 WBC 5.9 (4.3-11.1) K/mcL Hgb 10.5 L (11.5-15.4) g/dL Hct 37.3 (35.3-44.9) % Plt Count 312 (140-400) K/mcL Neutrophils # 4.2 (1.6-8.9) K/mcL BMP 11/15/16 05:37 Sodium 141 Potassium 4.4 Chloride 95 L Carbon Dioxide 36 H BUN 23 H D Creatinine 0.74 Glucose 281 H Calcium 9.7 Liver Function 11/15/16 Range/Units 05:37 Total Bilirubin 0.3 (0.2-1.2) mg/dL AST 14 (5-34) Units/L ALT 18 (0-55) Units/L Alkaline Phosphatase 88 (38-126) Units/L Albumin 3.1 L (3.5-5.0) g/dL - ABG Interpretation ABG results: ABG ABG pH 7.35 pH Units (7.32-7.45) 11/14/16 10:45 ABG pCO2 74 mmHg (35-45) H* 11/14/16 10:45 ABG pO2 76 mmHg (85-104) L 11/14/16 10:45 ABG O2 Saturation 94 % (95-98) L 11/14/16 10:45 PT/INR, D-dimer PT 16.9 Seconds (9.4-12.1) H 11/15/16 05:37 Consult Discharge Plan - Plan Referrals: Katie Taylor MD [Primary Care Provider] -
[2016-11-16] MEDS: MethylPREDNISolone 40 MG/ML VIAL IVP SCH ×3 (00:48→18:03)
[2016-11-16] MEDS: Piperacillin/Tazobactam 3.375 GM in D5% in Water (Mini-Bag+) 100 ML IVPB SCH ×3 (00:48→18:10)
[2016-11-16] MEDS: Ipratropium/Albuterol Neb 3 ML IH SCH ×4 (03:45→21:28)
[2016-11-16 05:46] LABS: Hemoglobin 10.9 g/dL (11.5-15.4)
[2016-11-16 05:47] LABS: INR 1.4; Prothrombin Time 14.9 Seconds (9.4-12.1)
[2016-11-16 05:48] LABS: Basophils % 0.2 %; Lymphocytes # 0.9 K/mcL (0.6-4.6); Lymphocytes % 14.4 %; Mean Corpuscular HGB Conc 27.9 g/dL (31.6-35.5); Mean Corpuscular Hemoglobin 21.6 pg (28.0-33.3); Mean Corpuscular Volume 77.2 fL (83.0-100.0); Mean Platelet Volume 9.9 fL (9.4-12.4); Monocytes # 0.2 K/mcL (0.0-1.3); Monocytes % 3.2 %; Neutrophils # 5.1 K/mcL (1.6-8.9); Platelet Count 315 K/mcL (140-400); Red Blood Count 5.05 M/mcL (3.82-4.97); Segmented Neutrophils % 81.2 %
[2016-11-16 05:58] LABS: Alanine Aminotransferase 19 Units/L (0-55); Albumin 3.1 g/dL (3.5-5.0); Albumin/Globulin Ratio 0.7 (1.1-2.2); Alkaline Phosphatase 90 Units/L (38-126); Aspartate Amino Transferase 11 Units/L (5-34); BUN/Creatinine Ratio 29 (6-26); Bilirubin,Total 0.3 mg/dL (0.2-1.2); Blood Urea Nitrogen 21 mg/dL (7-20); Calcium 9.7 mg/dL (8.6-10.8); Carbon Dioxide 36 mEq/L (19-29); Chloride 93 mEq/L (98-109); Globulin 4.6 g/dL (2.4-3.5); Glucose 293 mg/dL (70-99); Osmolality,Calculated 302 (280-300); Potassium 4.6 mEq/L (3.5-4.5); Sodium 139 mEq/L (136-145); Total Protein 7.7 g/dL (6.0-8.3); eGFR For African Americans > 60 (> 60); eGFR For Non-African Americans > 60 (> 60)
[2016-11-16 06:32] LABS: Anisocytosis 1+ (Not Present); Hypochromasia Present (Not Present); Microcytosis Present (Not Present); Platelet Estimate Normal (Normal)
[2016-11-16] MEDS: Insulin LISPRO 300 UNITS/3 ML VIAL SQ SCH ×4 (08:40→22:05)
[2016-11-16] MEDS: Gabapentin 300 MG CAPSULE PO SCH ×2 (09:03→22:06)
[2016-11-16] MEDS: FLUoxetine 20 MG CAPSULE PO SCH (09:04)
[2016-11-16] MEDS: *HR* OxyCODONE/APAP 5/325 TABLET PO PRN ×3 (09:04→23:21)
[2016-11-16] MEDS: Nystatin POWDER 30 GM BOTTLE TP SCH ×3 (09:09→22:07)
[2016-11-16] MEDS: (Liraglutide [Victoza 2-Pak] 1.8 ML) SQ SCH (09:29)
[2016-11-16] MEDS: Levofloxacin 750 MG/150 ML 750 MG/150 ML BAG IVPB SCH (13:30)
--- NOTE | 2016-11-16 17:32 | Internal Med Progress Note ---
Date of Encounter: 11/16/16 Time of Encounter: 17:30 - Assessment and plan (1) Acute on chronic respiratory failure with hypoxia and hypercapnia Current Visit: Yes Status: Acute Assessment and plan: Admitted with acute on chronic respiratory failure. Patient has a hypercapnia. Baseline PCO2 is in 70s. Repeat blood gas has improved as compared to the morning. will continue same treatment and will update. 11/15/2016 symptomatically better no more using BiPAP on 4 L of oxygen and maintaining her saturation to around 92% will continue present treatment. 11/16/2016 clinically improved a lot. well responded to present treatment. possibly d/c home tomorrow (2) Venous stasis ulcer of lower extremity Current Visit: Yes Status: Chronic Assessment and plan: chronic ulcer on lower extremity. has pseudomonas in the same. will start antipsudomonal abx 11/15/2016 Day 3 abx. lesions o the foot appears much better 11/16/2016 day 4 abx lesions improved a lot. possibly home tomorrow Qualifiers: Laterality: unspecified laterality Qualified Code(s): I83.009 - Varicose veins of unspecified lower extremity with ulcer of unspecified site (3) Emphysema of lung Current Visit: Yes Status: Chronic Assessment and plan: Exacerbation of COPD - Antibiotics Methyl prednisone BDAs Qualifiers: Emphysema type: unspecified Qualified Code(s): J43.9 - Emphysema, unspecified (4) Diabetes mellitus Current Visit: Yes Status: Acute Assessment and plan: ACHS on insulin and will observe blood sugar very closely Qualifiers: Diabetes mellitus type: type 2 Diabetes mellitus complication status: with unspecified complications 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 Still SOB family at bedside. denies chest pain and Abdominal pain. 11/15/2016 feels much better as compare to yesterday still has SOB cough present but less frequent as compare to yesterday complains that she has occasional itch in folds. 11/16/2016 keen to go home still has occasional SOB no more itch infolds - Constitutional Vitals: Temp Pulse Resp BP Pulse Ox 98.2 F 111 18 176/93 92 L 11/16/16 15:54 11/16/16 15:54 11/16/16 16:29 11/16/16 15:54 11/16/16 16:29 General appearance: Present: A&O X 3, morbidly obese, pleasant, answers questions appropriately - Head Head exam: Present: atraumatic, normocephalic - Eye Eye exam: Present: PERRL, conjuntiva pink, sclera anicteric Pupils: Present: PERRL - Neck Neck exam general surgery: Present: supple, trachea midline. Absent: lymphadenopathy - Respiratory Respiratory exam: Present: CTAB. Absent: accessory muscle use, rales, rhonchi, wheezes - Cardiovascular Cardiovascular exam: Present: RRR, +S1, +S2. Absent: diastolic murmur, gallop, rubs, systolic murmur - GI/Abdominal GI/Abdominal exam: Present: normal bowel sounds, soft, no peritoneal signs. Absent: distended, tenderness - Extremities Exam Extremities exam: Present: warm, radial pulses palpable and symetrical. Absent : calf tenderness, cyanotic, pedal edema - Neurological Exam Neurological exam: Present: CN II-XII intact, oriented X3, no focal deficits. Absent: pronater drift, facial droop, speech deficit - Skin Skin exam: Present: dry, intact Internal Medicine: Result - Labs CBC & Chem 7: 11/16/16 05:04 11/16/16 05:04 Labs: Short CBC 11/16/16 Range/Units 05:04 WBC 6.3 (4.3-11.1) K/mcL Hgb 10.9 L (11.5-15.4) g/dL Hct 39.0 (35.3-44.9) % Plt Count 315 (140-400) K/mcL Neutrophils # 5.1 (1.6-8.9) K/mcL BMP 11/16/16 05:04 Sodium 139 Potassium 4.6 H Chloride 93 L Carbon Dioxide 36 H BUN 21 H Creatinine 0.72 Glucose 293 H Calcium 9.7 Liver Function 11/16/16 Range/Units 05:04 Total Bilirubin 0.3 (0.2-1.2) mg/dL AST 11 (5-34) Units/L ALT 19 (0-55) Units/L Alkaline Phosphatase 90 (38-126) Units/L Albumin 3.1 L (3.5-5.0) g/dL - ABG Interpretation ABG results: ABG ABG pH 7.35 pH Units (7.32-7.45) 11/14/16 10:45 ABG pCO2 74 mmHg (35-45) H* 11/14/16 10:45 ABG pO2 76 mmHg (85-104) L 11/14/16 10:45 ABG O2 Saturation 94 % (95-98) L 11/14/16 10:45 PT/INR, D-dimer PT 14.9 Seconds (9.4-12.1) H 11/16/16 05:04 Consult Discharge Plan - Plan Referrals: Katie Taylor MD [Primary Care Provider] -
[2016-11-16] MEDS: *HR* Rivaroxaban 10 MG TABLET PO SCH (18:11)
[2016-11-16] MEDS: ALPRAZolam 0.25 MG TABLET PO PRN (23:18)
[2016-11-17] MEDS: Piperacillin/Tazobactam 3.375 GM in D5% in Water (Mini-Bag+) 100 ML IVPB SCH ×4 (00:18→20:29)
[2016-11-17] MEDS: MethylPREDNISolone 40 MG/ML VIAL IVP SCH ×4 (00:20→23:27)
[2016-11-17 04:37] LABS: Basophils % 0.1 %; Hematocrit 36.4 % (35.3-44.9); Hemoglobin 10.6 g/dL (11.5-15.4); Immature Granulocytes % 0.9 % (0-4); Lymphocytes # 0.7 K/mcL (0.6-4.6); Lymphocytes % 10.5 %; Mean Corpuscular HGB Conc 29.1 g/dL (31.6-35.5); Mean Corpuscular Hemoglobin 22.1 pg (28.0-33.3); Mean Platelet Volume 9.7 fL (9.4-12.4); Monocytes # 0.1 K/mcL (0.0-1.3); Monocytes % 1.7 %; Neutrophils # 6.1 K/mcL (1.6-8.9); Platelet Count 277 K/mcL (140-400); Red Blood Count 4.79 M/mcL (3.82-4.97); Red Cell Distribution Width 18.8 % (11.5-14.5); Segmented Neutrophils % 86.8 %
[2016-11-17] MEDS: Ipratropium/Albuterol Neb 3 ML IH SCH ×4 (04:43→21:42)
[2016-11-17 04:44] LABS: INR 1.4; Prothrombin Time 15.2 Seconds (9.4-12.1)
[2016-11-17 04:51] LABS: Alanine Aminotransferase 17 Units/L (0-55); Albumin/Globulin Ratio 0.7 (1.1-2.2); Alkaline Phosphatase 86 Units/L (38-126); Aspartate Amino Transferase 8 Units/L (5-34); BUN/Creatinine Ratio 31 (6-26); Bilirubin,Total 0.4 mg/dL (0.2-1.2); Blood Urea Nitrogen 23 mg/dL (7-20); Calcium 9.3 mg/dL (8.6-10.8); Carbon Dioxide 33 mEq/L (19-29); Chloride 94 mEq/L (98-109); Globulin 4.1 g/dL (2.4-3.5); Glucose 363 mg/dL (70-99); Osmolality,Calculated 302 (280-300); Potassium 4.8 mEq/L (3.5-4.5); Sodium 137 mEq/L (136-145); Total Protein 7.1 g/dL (6.0-8.3); eGFR For African Americans > 60 (> 60); eGFR For Non-African Americans > 60 (> 60)
[2016-11-17] MEDS: FLUoxetine 20 MG CAPSULE PO SCH (08:04)
[2016-11-17] MEDS: Nystatin POWDER 30 GM BOTTLE TP SCH ×3 (08:04→23:28)
[2016-11-17] MEDS: *HR* OxyCODONE/APAP 5/325 TABLET PO PRN ×2 (08:04→14:28)
[2016-11-17] MEDS: Insulin LISPRO 300 UNITS/3 ML VIAL SQ SCH ×4 (08:05→22:34)
[2016-11-17] MEDS: Gabapentin 300 MG CAPSULE PO SCH ×2 (08:05→20:28)
[2016-11-17] MEDS: (Liraglutide [Victoza 2-Pak] 1.8 ML) SQ SCH (08:12)
--- NOTE | 2016-11-17 12:36 | Internal Med Progress Note ---
<Weston Rodrigues - Last Filed: 11/17/16 14:56> Date of Encounter: 11/17/16 Time of Encounter: 10:00 - Assessment and plan (1) Acute on chronic respiratory failure with hypoxia and hypercapnia Current Visit: Yes Status: Acute Assessment and plan: Patient clinically improved. Patient was admitted with acute on chronic respiratory failure and history of frequent hospital visits. She is found to be hypercapnic and has a baseline PCO2 in the 70s. With patient discussion she has not been compliant wearing her BiPAP at night due to claustrophobia, this and her underlining COPD have likely contributed to her chronic hypercapnia. She currently still requires 3 L oxygen to maintain her oxygen saturations between 89 and 93%. Plan: - DuoNeb Q6hr Scheduled - Proventil Neb Q6hr PRN -Continue Solu-Medrol 40 mg IV every 8 hours - Continue montelukast 10 mg by mouth at bedtime - Continue Levaquin. - Likely discharge home tomorrow. (2) Emphysema of lung Current Visit: Yes Status: Chronic Assessment and plan: Patient has a known history of COPD and currently admitted with COPD exacerbation. Improving clinically. Plan: - Continue therapy as mentioned above. Qualifiers: Emphysema type: unspecified Qualified Code(s): J43.9 - Emphysema, unspecified (3) DVT (deep venous thrombosis) Current Visit: Yes Status: Acute Assessment and plan: Patient has a provoked DVT of the lower left extremity with current venous stasis ulcer and wound care. She has been on 2 months of warfarin therapy and presents with a subtherapeutic INR. She was started on Xarelto to 20 mg by mouth daily during this inpatient stay. Warfarin therapy held. Plan: - Likely continue outpatient Xarelto therapy. Qualifiers: Qualified Code(s): I82.409 - Acute embolism and thrombosis of unspecified deep veins of unspecified lower extremity (4) Diabetes mellitus Current Visit: Yes Status: Acute Assessment and plan: Patient is a insulin-dependent type 2 diabetic who is on U500 and Victoza at home. Her last hemoglobin A1c on 10/13/2016 was 6.3. She is currently hyperglycemic likely secondary to scheduled Solu-Medrol. She is currently hyperglycemic on a high-dose sliding scale insulin. Plan: - Continue before meals at bedtime glucose monitoring. - Continue inpatient high-dose sliding scale. Qualifiers: Diabetes mellitus type: type 2 Diabetes mellitus complication status: with unspecified complications Diabetes mellitus assistant terminal manager insulin use: with assistant terminal manager use Qualified Code(s): E11.8 - Type 2 diabetes mellitus with unspecified complications; Z79.4 - skilled nursing (current) use of insulin (5) Venous stasis ulcer of lower extremity Current Visit: Yes Status: Chronic Assessment and plan: Patient admitted with venous stasis ulcer for which she sees wound care outpatient. Wound cultures from 09/30/2016 and 09/23/2016 grew Pseudomonas, current antibiotic coverage includes Zosyn Plan: - Continue Zosyn during inpatient stay. Day 5 of antibiotics. - Continue wound care with wound VAC. Qualifiers: Laterality: unspecified laterality Qualified Code(s): I83.009 - Varicose veins of unspecified lower extremity with ulcer of unspecified site - Subjective Interval history: Ms. Mcwilliams has been seen and examined at patient bedside this am. She is awake alert and in no acute distress. She says her breathing is improved but not back to her baseline. She is tolerating her nasal canula oxygen. She denies daily use of oxygen and usually only wears it at night while sleeping. She says she could not tolerate her BiPAP at home because she felt claustrophobic. In the 1.5 months leading up to her hospital stay she says she needed her oxygen all day to feel as if she could breath. She denies any pain currently. She says her left lower extremity wound is improving and she is tolerating the wound vac. She denies any fevers, chills, night sweating. - Constitutional Vitals: Temp Pulse Resp BP Pulse Ox 97.6 F 109 18 172/79 93 L 11/17/16 07:00 11/17/16 07:00 11/17/16 11:21 11/17/16 07:00 11/17/16 11:21 General appearance: Present: A&O X 3, morbidly obese, pleasant, obese, answers questions appropriately - Head Head exam: Present: atraumatic, normocephalic - Eye Eye exam: Present: PERRL, conjuntiva pink, sclera anicteric Pupils: Present: PERRL - Neck Neck exam general surgery: Present: supple, trachea midline. Absent: lymphadenopathy - Respiratory Additional comments: Patient has diffuse diminished inspiratory and expiratory breath sounds. - Cardiovascular Cardiovascular exam: Present: RRR, +S1, +S2. Absent: diastolic murmur, gallop, rubs, systolic murmur - GI/Abdominal GI/Abdominal exam: Present: normal bowel sounds, soft, no peritoneal signs. Absent: distended, tenderness - Extremities Exam Additional comments: Left lower extremity with pitting edema and skin discoloration. Wound vac in place and wound bandaged. right lower extremity with trace edema - Neurological Exam Neurological exam: Present: alert, oriented X3, no focal deficits. Absent: pronater drift, facial droop, speech deficit - Psychiatric Psychiatric exam: Present: normal affect, normal mood - Skin Skin exam: Present: warm Internal Medicine: Result - Labs CBC & Chem 7: 11/17/16 04:14 11/17/16 04:14 Labs: Short CBC 11/17/16 Range/Units 04:14 WBC 7.0 (4.3-11.1) K/mcL Hgb 10.6 L (11.5-15.4) g/dL Hct 36.4 (35.3-44.9) % Plt Count 277 (140-400) K/mcL Neutrophils # 6.1 (1.6-8.9) K/mcL BMP 11/17/16 04:14 Sodium 137 Potassium 4.8 H Chloride 94 L Carbon Dioxide 33 H BUN 23 H Creatinine 0.74 Glucose 363 H Calcium 9.3 Liver Function 11/17/16 Range/Units 04:14 Total Bilirubin 0.4 (0.2-1.2) mg/dL AST 8 (5-34) Units/L ALT 17 (0-55) Units/L Alkaline Phosphatase 86 (38-126) Units/L Albumin 3.0 L (3.5-5.0) g/dL - ABG Interpretation ABG results: ABG ABG pH 7.35 pH Units (7.32-7.45) 11/14/16 10:45 ABG pCO2 74 mmHg (35-45) H* 11/14/16 10:45 ABG pO2 76 mmHg (85-104) L 11/14/16 10:45 ABG O2 Saturation 94 % (95-98) L 11/14/16 10:45 PT/INR, D-dimer PT 15.2 Seconds (9.4-12.1) H 11/17/16 04:14 Consult Discharge Plan - Plan Referrals: Katie Taylor MD [Primary Care Provider] - <Jordon Jean-Baptiste P - Last Filed: 11/17/16 18:16> Date of Encounter: 11/17/16 - Assessment and plan (1) Acute on chronic respiratory failure with hypoxia and hypercapnia Current Visit: Yes Status: Acute (2) Venous stasis ulcer of lower extremity Current Visit: Yes Status: Chronic Qualifiers: Laterality: unspecified laterality Qualified Code(s): I83.009 - Varicose veins of unspecified lower extremity with ulcer of unspecified site (3) Emphysema of lung Current Visit: Yes Status: Chronic Qualifiers: Emphysema type: unspecified Qualified Code(s): J43.9 - Emphysema, unspecified (4) Diabetes mellitus Current Visit: Yes Status: Acute Qualifiers: Diabetes mellitus type: type 2 Diabetes mellitus complication status: with unspecified complications Diabetes mellitus [facility] insulin use: with assistant terminal manager use Qualified Code(s): E11.8 - Type 2 diabetes mellitus with unspecified complications; 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 insulin - Constitutional Vitals: Temp Pulse Resp BP Pulse Ox 98.1 F 105 18 182/90 93 L 11/17/16 15:00 11/17/16 15:00 11/17/16 15:40 11/17/16 15:00 11/17/16 15:40 Internal Medicine: Result - Labs CBC & Chem 7: 11/17/16 04:14 11/17/16 04:14 Labs: Short CBC 11/17/16 Range/Units 04:14 WBC 7.0 (4.3-11.1) K/mcL Hgb 10.6 L (11.5-15.4) g/dL Hct 36.4 (35.3-44.9) % Plt Count 277 (140-400) K/mcL Neutrophils # 6.1 (1.6-8.9) K/mcL BMP 11/17/16 04:14 Sodium 137 Potassium 4.8 H Chloride 94 L Carbon Dioxide 33 H BUN 23 H Creatinine 0.74 Glucose 363 H Calcium 9.3 Liver Function 11/17/16 Range/Units 04:14 Total Bilirubin 0.4 (0.2-1.2) mg/dL AST 8 (5-34) Units/L ALT 17 (0-55) Units/L Alkaline Phosphatase 86 (38-126) Units/L Albumin 3.0 L (3.5-5.0) g/dL - ABG Interpretation ABG results: ABG ABG pH 7.35 pH Units (7.32-7.45) 11/14/16 10:45 ABG pCO2 74 mmHg (35-45) H* 11/14/16 10:45 ABG pO2 76 mmHg (85-104) L 11/14/16 10:45 ABG O2 Saturation 94 % (95-98) L 11/14/16 10:45 PT/INR, D-dimer PT 15.2 Seconds (9.4-12.1) H 11/17/16 04:14 - Attending Attestation I examined this patient and my medical decision-making was reviewed with the EQUIPMENT OPERATOR WAREHOUSE/PA/Advanced Practice Nurse/Resident Physician. I agree with the documented findings, disposition and treatment plan as described except to the extent set forth below.
[2016-11-17] MEDS: Levofloxacin 750 MG/150 ML 750 MG/150 ML BAG IVPB SCH (14:28)
[2016-11-17] MEDS: *HR* Rivaroxaban 10 MG TABLET PO SCH (16:55)
[2016-11-17] MEDS: ALPRAZolam 0.25 MG TABLET PO PRN (23:28)
[2016-11-18] MEDS: Piperacillin/Tazobactam 3.375 GM in D5% in Water (Mini-Bag+) 100 ML IVPB SCH (02:17)
[2016-11-18] MEDS: Ipratropium/Albuterol Neb 3 ML IH SCH ×2 (04:14→10:45)
[2016-11-18 06:50] LABS: Basophils % 0.1 %; Hematocrit 38.4 % (35.3-44.9); Hemoglobin 11.2 g/dL (11.5-15.4); Immature Granulocytes % 1.1 % (0-4); Lymphocytes # 0.7 K/mcL (0.6-4.6); Lymphocytes % 8.6 %; Mean Corpuscular HGB Conc 29.2 g/dL (31.6-35.5); Mean Corpuscular Volume 75.3 fL (83.0-100.0); Mean Platelet Volume 10.6 fL (9.4-12.4); Monocytes # 0.2 K/mcL (0.0-1.3); Monocytes % 2.7 %; Neutrophils # 7.3 K/mcL (1.6-8.9); Platelet Count 298 K/mcL (140-400); Red Cell Distribution Width 19.1 % (11.5-14.5); Segmented Neutrophils % 87.5 %
[2016-11-18 07:08] LABS: Alanine Aminotransferase 17 Units/L (0-55); Albumin 3.1 g/dL (3.5-5.0); Albumin/Globulin Ratio 0.8 (1.1-2.2); Alkaline Phosphatase 87 Units/L (38-126); Aspartate Amino Transferase 9 Units/L (5-34); BUN/Creatinine Ratio 34 (6-26); Bilirubin,Total 0.5 mg/dL (0.2-1.2); Blood Urea Nitrogen 24 mg/dL (7-20); Calcium 9.5 mg/dL (8.6-10.8); Carbon Dioxide 30 mEq/L (19-29); Chloride 94 mEq/L (98-109); Globulin 4.1 g/dL (2.4-3.5); Glucose 386 mg/dL (70-99); Osmolality,Calculated 302 (280-300); Potassium 4.4 mEq/L (3.5-4.5); Sodium 136 mEq/L (136-145); Total Protein 7.2 g/dL (6.0-8.3); eGFR For African Americans > 60 (> 60); eGFR For Non-African Americans > 60 (> 60)
[2016-11-18 08:01] VITALS: BP 182/90
--- NOTE | 2016-11-18 08:42 | Discharge Summary ---
<Weston Rodrigues - Last Filed: 11/18/16 12:37> Date of Encounter: 11/18/16 Time of Encounter: 08:36 - Discharge Diagnosis (1) Acute on chronic respiratory failure with hypoxia and hypercapnia Priority: Primary Status: Acute (2) Emphysema of lung Priority: Secondary Status: Chronic Qualifiers: Emphysema type: unspecified Qualified Code(s): J43.9 - Emphysema, unspecified (3) DVT (deep venous thrombosis) Priority: Primary Status: Acute Qualifiers: Qualified Code(s): I82.409 - Acute embolism and thrombosis of unspecified deep veins of unspecified lower extremity (4) Diabetes mellitus Priority: Secondary Status: Acute Qualifiers: Diabetes mellitus type: type 2 Diabetes mellitus complication status: with unspecified complications Diabetes mellitus retirement insulin use: with retirement use Qualified Code(s): E11.8 - Type 2 diabetes mellitus with unspecified complications; Z79.4 - forest scientist (current) use of insulin (5) Venous stasis ulcer of lower extremity Priority: Primary Status: Chronic Qualifiers: Laterality: unspecified laterality Qualified Code(s): I83.009 - Varicose veins of unspecified lower extremity with ulcer of unspecified site - Discharge Medications Prescriptions: Alprazolam [Xanax 0.25 MG Tablet] 0.25 mg PO HS PRN #7 tablet PRN Reason: Anxiety Levofloxacin 750 mg PO 1300 #3 tablet Rivaroxaban [Xarelto] 20 mg PO 1700 #30 tablet Home Medications: Cyclobenzaprine [Flexeril] 10 mg PO TID 08/21/16 [History] FLUoxetine HCl [Prozac] 20 mg PO DAILY 08/21/16 [History] Fluticasone/Salmeterol [Advair 250-50 Diskus] 1 each IH BID 08/21/16 [History] Liraglutide [Victoza 2-Dany] 1.8 ml SQ DAILY 08/21/16 [History] Montelukast [Singulair] 10 mg PO DAILY 08/21/16 [History] OxyCODONE/APAP 7.5/325 [Percocet 7.5/325 MG] 1 each PO Q6HR PRN 08/21/16 [ History] Promethazine [Phenergan] 25 mg PO BID PRN 08/21/16 [History] Ipratropium Neb [Atrovent Neb] 0.5 mg IH Q6HR #60 vial.neb 09/12/16 [Rx] Losartan Potassium [Cozaar] 50 mg PO DAILY 09/12/16 [History] Pravastatin Sodium [Pravachol] 40 mg PO DAILY 09/12/16 [History] Albuterol Sulfate [Proair Respiclick] 90 mcg IH Q4-6H PRN #1 aer.pow.ba [Rx] PredniSONE 40 mg PO DAILY #30 tablet 10/27/16 [Rx] Albuterol Neb [Proventil Neb] 2.5 mg IH QID PRN 11/13/16 [History] Esomeprazole Magnesium [Nexium 24Hr] 22.3 mg PO DAILY 11/13/16 [History] Oxygen 2 l NS HS 11/13/16 [History] Insulin Regular U-500 [HumuLIN R U-500] 60 unit SQ TIDWM 11/14/16 [History] Alprazolam [Xanax 0.25 MG Tablet] 0.25 mg PO HS PRN #7 tablet 11/18/16 [Rx] Levofloxacin 750 mg PO 1300 #3 tablet 11/18/16 [Rx] Rivaroxaban [Xarelto] 20 mg PO 1700 #30 tablet 11/18/16 [Rx] Allergies/Adverse Reactions: Allergies cetirizine [From [facility]] Allergy (Verified 11/13/16 08:44) Swelling of Lip/Tongue/Throat codeine Adverse Reaction (Verified 11/13/16 08:44) Nausea lisinopril Adverse Reaction (Verified 11/13/16 08:44) Cough Date of admission: 11/13/16 17:04 Primary care physician: Katie Taylor Consults: 11/12/16 20:31 Consult to Nurse Navigator [CONS] Routine Comment: Consult to Nurse Navigator [CONS] Routine Comment: 11/13/16 00:38 Consult to Dry Cleaning Machine Operator [CONS] Routine Comment: 11/13/16 10:54 Consult to Wound Care [CONS] Routine Reason for Consult: Stasis ulcers Left lower extremity, has zoe boot in place that needs changed today. Time Notified: 11:00 Call Completed: Yes Discharging clinician: Weston Rodrigues Anticipated date of discharge: 11/18/16 - Patient Status Disposition: Home, Self-Care Condition: Good Functional capacity at discharge: independent ambulation Overall status at discharge: patient is progressing back to baseline - Discharge Instructions Instructions: Levofloxacin (By mouth), Rivaroxaban (By mouth), Acute Respiratory Distress Syndrome (DC), Chronic Obstructive Pulmonary Disease (DC), Acute Wound Care (DC), Acute Wound Care (GEN) Follow Up With: Katie Taylor MD [Primary Care Provider] - 11/24/16 10:45 am Additional Instructions: Follow up with primary care physician in 3-5 days for re-evaluation. Take medications as prescribed. Follow up with wound care with your planned appointments. - Diet and Activity Activity: increase activity as tolerated Diet: diabetic diet Hospital course: Ms. Mcwilliams is a 60 year old female with pmh of arthritis, asthma, COPD, diabetes , GERD, hyperlipidemia, hypertension, osteoporosis, venous stasis, was admitted on 11/12/2016 with a COPD exacerbation. She was admitted to the general medical floor and started on nasal cannula oxygen, Antibiotics, IV steroids, breathing treatments and BDAs. ABGs were collected and she was found to have a PCO2 of 80 with a baseline PCO2 in the 70's. She discussed inability to tolerate her BiPAP at home do to claustrophobia. She was admitted with a chronic left LE would ulcer with previous cultures that grew pseudomonas. Would care was consulted and managed LE wound during this inpatient stay. Started on antipseudomonal antibiotics after sensitivity has been reviewed. She was on Coumadin for a LLE DVT and was found to be subtheraputic. She was started on Xarelto and Coumadin was discontinued. She steadily improved during her inpatient stay and on 2016 she was seen and examined at patient bedside and deemed stable for discharge home with close follow up. Discharge and medication changes were discussed with the patient and she demonstrated understanding and agreement to the plan. - Time Spent with Patient Total time spent providing and/or coordinating discharge services: - Constitutional Vitals: Temp Pulse Resp BP Pulse Ox 97.6 F 105 16 182/90 96 11/18/16 07:56 11/18/16 07:56 11/18/16 07:56 11/18/16 07:56 11/18/16 07:56 General appearance: Present: A&O X 3, morbidly obese, pleasant, obese, answers questions appropriately - Head Head exam: Present: atraumatic, normocephalic - Eye Eye exam: Present: PERRL, conjuntiva pink, sclera anicteric Pupils: Present: PERRL - Neck Neck exam general surgery: Present: supple, trachea midline. Absent: lymphadenopathy - Respiratory Additional comments: Diffuse expiratory wheeze. No ronchi or rales appreciated on auscultation. Chest symmetric and correlates with respiratory effort. Respiratory effort is non-labored. - Cardiovascular Cardiovascular exam: Present: RRR, +S1, +S2. Absent: diastolic murmur, gallop, rubs, systolic murmur - GI/Abdominal GI/Abdominal exam: Present: normal bowel sounds, soft, no peritoneal signs. Absent: distended, tenderness - Extremities Exam Additional comments: Left lower extremity with pitting edema and skin discoloration. Wound vac in place and wound bandaged. right lower extremity with trace edema - Neurological Exam Neurological exam: Present: alert, oriented X3, no focal deficits. Absent: pronater drift, facial droop, speech deficit - Psychiatric Psychiatric exam: Present: normal affect, normal mood <Jordon Jean-Baptiste P - Last Filed: 11/18/16 18:23> Date of Encounter: 11/18/16 - Discharge Diagnosis (1) Acute on chronic respiratory failure with hypoxia and hypercapnia Status: Acute (2) Venous stasis ulcer of lower extremity Status: Chronic Qualifiers: Laterality: unspecified laterality Qualified Code(s): I83.009 - Varicose veins of unspecified lower extremity with ulcer of unspecified site (3) Emphysema of lung Status: Chronic Qualifiers: Emphysema type: unspecified Qualified Code(s): J43.9 - Emphysema, unspecified (4) Diabetes mellitus Status: Acute Qualifiers: Diabetes mellitus type: type 2 Diabetes mellitus complication status: with unspecified complications Diabetes mellitus retirement insulin use: with silk washing 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 Time Notified: 11:00 Call Completed: Yes Hospital course: Ms. Mcwilliams is a 60 year old female - Time Spent with Patient Total time spent providing and/or coordinating discharge services: - Constitutional Vitals: Temp Pulse Resp BP Pulse Ox 97.6 F 105 18 182/90 91 L 11/18/16 07:56 11/18/16 07:56 11/18/16 10:48 11/18/16 07:56 11/18/16 10:48 - Attending Attestation I examined this patient and my medical decision-making was reviewed with the FEEDER WORKER POWER UNIT OPERATOR/PA/Advanced Practice Nurse/Resident Physician. I agree with the documented findings, disposition and treatment plan as described except to the extent set forth below.
[2016-11-18] MEDS ORDERED: FLU VACC QS2016-17 36MOS UP/PF 0.5 ML SYRINGE IM ONE (08:56)
[2016-11-18] MEDS: FLUoxetine 20 MG CAPSULE PO SCH (09:00)
[2016-11-18] MEDS: *HR* OxyCODONE/APAP 5/325 TABLET PO PRN (09:00)
[2016-11-18] MEDS: MethylPREDNISolone 40 MG/ML VIAL IVP SCH (09:01)
[2016-11-18] MEDS: Gabapentin 300 MG CAPSULE PO SCH (09:01)
[2016-11-18] MEDS: (Liraglutide [Victoza 2-Pak] 1.8 ML) SQ SCH (09:01)
[2016-11-18] MEDS: Nystatin POWDER 30 GM BOTTLE TP SCH (09:01)
[2016-11-18] MEDS: Insulin LISPRO 300 UNITS/3 ML VIAL SQ SCH ×2 (09:04→12:02)
[2016-11-18] MEDS ORDERED: levoFLOXacin 750 MG TABLET PO SCH (13:00)
== END 2016-11-18 13:24 | disposition home or self-care (01) | DRG 189 ==
LOC: 2NENU
PROVIDERS: ADMIT Internal Medicine; ATTEND Internal Medicine

== ENCOUNTER 2017-02-20 12:17 | Observation (INO) ==
[2017-02-20] MEDS ORDERED: Acetaminophen 325 MG TABLET PO PRN (14:38)
[2017-02-20] MEDS ORDERED: Naloxone 0.4 MG/ML INJ IVP PRN (14:38)
[2017-02-20] MEDS ORDERED: D5% in Water 1,000 ML IVC PRN (14:46)
[2017-02-20] MEDS ORDERED: Dextrose Gel 15 GM PO PRN ×2 (14:46)
[2017-02-20] MEDS ORDERED: *HR* Dextrose 50 % in Water (Syg) 50 ML SYRINGE IVP PRN (14:46)
--- NOTE | 2017-02-20 15:05 | Internal Med History&Physical ---
Date of Encounter: 02/20/17 Time of Encounter: 14:50 Assessment and Plan (1) TIA (transient ischemic attack) Current visit: Yes Status: Suspected Patient with right-sided weakness and slurred speech that has now resolved. Observation. We will get carotid Dopplers and MRI of the brain. Check lipid profile. Aspirin and statin. Check TSH, A1c. Neurochecks. PTOT evaluation. Qualifiers: Transient cerebral ischemia type: other Qualified Code(s): G45.8 - Other transient cerebral ischemic attacks and related syndromes (2) Venous stasis ulcer of lower extremity Current visit: No Status: Chronic Supportive care. Left lower extremity elevation. Continue diuresis. Qualifiers: Laterality: unspecified laterality Qualified Code(s): I83.009 - Varicose veins of unspecified lower extremity with ulcer of unspecified site (3) Morbid obesity with BMI of 60.0-69.9, adult Current visit: No Status: Chronic (4) Diabetes mellitus Current visit: No Status: Acute Patient with hypoglycemia. Monitor blood sugars closely. Hold insulin products for now. Qualifiers: Diabetes mellitus type: type 2 Diabetes mellitus complication status: with hypoglycemia Diabetes mellitus complication detail: without coma Diabetes mellitus manager intermediate insulin use: with manager intermediate use Qualified Code(s): E11.649 - Type 2 diabetes mellitus with hypoglycemia without coma; Z79.4 - manager intermediate ( current) use of insulin (5) Hypoglycemia Current visit: Yes Status: Acute (6) DVT (deep venous thrombosis) Current visit: Yes Status: Chronic Continue anticoagulation with Xarelto Qualifiers: DVT location: lower extremity Affected thrombotic vein of extremity: unspecified vein of extremity Laterality: left Chronicity: chronic Qualified Code(s): I82.502 - Chronic embolism and thrombosis of unspecified deep veins of left lower extremity Internal Medicine - H&P: HPI Chief complaint: Right-sided weakness, low blood sugars Admitted From: Emergency Dept Plans for Post Hospital Care: Home History of present illness: Ms. Mcwilliams is a 61 year old female patient with a history of essential hypertension, diabetes mellitus type 2, morbid obesity, chronic left lower venous stasis ulcer, DVT presented to the ER with complaints of right-sided weakness and numbness but she notices when she woke up in the morning. She woke up this morning and slid out of the bed in a controlled fall as she was weak on the right side and unable to lift her right arm or leg. As such she called EMS. She has been having low blood sugars yesterday and she only took one dose of insulin yesterday morning. She normally takes 3 doses daily. She did eat dinner and did not have any issues last night. After the EMS care of this morning, she was noted to have low blood sugars. She was given glucose supplements and since then her symptoms started to improve. Currently she no longer has any weakness or numbness. Her is present at bedside and says that she also had slurred speech initially. That also has resolved now. Patient also has noticed increased oozing in her left lower extremity venous stasis ulcer region. She has been dealing with this for about 8 months now and has had multiple antibiotic courses. Presently she just does not describe any increased erythema or pain. No fever chills but patient did have sweats this morning. Past Med Surg Social Fam HX - Past Medical History Attestation: Yes The following information was validated with the patient. Source: patient Medical history: arthritis, asthma, COPD, diabetes, GERD, hyperlipidemia, hypertension, osteoporosis, venous stasis, other Psychiatric history: anxiety, depression, other - Past Surgical History Surgical History: other - Social History Smoking Status: Former smoker Smokeless Tobacco Status: No Alcohol use: none Drug use: none - Additional Family History Additional family history: Reviewed and found to be noncontributory at this time Internal Medicine - H&P: Meds Cyclobenzaprine [Flexeril] 10 mg PO TID 08/21/16 [History] FLUoxetine HCl [Prozac] 20 mg PO DAILY 08/21/16 [History] Fluticasone/Salmeterol [Advair 250-50 Diskus] 1 each IH BID 08/21/16 [History] Liraglutide [Victoza 2-Dany] 1.8 ml SQ DAILY 08/21/16 [History] Montelukast [Singulair] 10 mg PO DAILY 08/21/16 [History] OxyCODONE/APAP 7.5/325 [Percocet 7.5/325 MG] 1 each PO Q6HR PRN 08/21/16 [ History] Ipratropium Neb [Atrovent Neb] 0.5 mg IH Q6HR #60 vial.neb 09/12/16 [Rx] Losartan Potassium [Cozaar] 50 mg PO DAILY 09/12/16 [History] Pravastatin Sodium [Pravachol] 40 mg PO DAILY 09/12/16 [History] Albuterol Sulfate [Proair Respiclick] 90 mcg IH Q4-6H PRN #1 aer.pow.ba [Rx] Albuterol Neb [Proventil Neb] 2.5 mg IH QID PRN 11/13/16 [History] Esomeprazole Magnesium [Nexium 24Hr] 22.3 mg PO DAILY 11/13/16 [History] Oxygen 2 l NS HS 11/13/16 [History] Insulin Regular U-500 [HumuLIN R U-500] 60 unit SQ TIDWM 11/14/16 [History] ALPRAZolam [Xanax 0.25 MG Tablet] 0.25 mg PO HS PRN #7 tablet 11/18/16 [Rx] Rivaroxaban [Xarelto] 20 mg PO 1700 #30 tablet 11/18/16 [Rx] LORazepam [Ativan] 1 mg PO TID PRN #6 tablet 01/23/17 [Rx] Azithromycin [Zithromax Tri-Dany] 500 mg PO DAILY 02/20/17 [History] Furosemide [Lasix] 40 mg PO BID 02/20/17 [History] Allergies cetirizine [From Zyrtec] Allergy (Verified 02/05/17 20:33) Swelling of Lip/Tongue/Throat codeine Adverse Reaction (Verified 02/05/17 20:33) Nausea lisinopril Adverse Reaction (Verified 02/05/17 20:33) Cough All Systems PM: A 10-system review of systems was performed and is negative for pertinent findings except as documented above in the HPI. - Constitutional Constitutional: no chills, no fever(s), no night sweats - EENT Eyes: no change in vision, no discharge, no pain, no photophobia Ears: no ear discharge, no ear pain, no tinnitus Nose, mouth and throat: no dysphagia, no nasal discharge, no neck pain, no sore throat - Cardiovascular Cardiovascular ROS IM: no chest pain, no diaphoresis, no dyspnea, no lightheadedness, no palpitations, no syncope - Respiratory Respiratory: no cough, no dyspnea, no wheezing, no excessive phlegm production - Gastrointestinal Gastrointestinal: no abdominal pain, no diarrhea, no hematemesis, no hematochezia, no melena, no nausea, no vomiting - Genitourinary Genitourinary: no change in urinary stream, no dysuria, no flank pain, no hematuria - Musculoskeletal Musculoskeletal ROS IM: no numbness, no tingling - Integumentary Integumentary IM: no rash, no unusual bruising - Neurological Neurological ROS: no confusion, no convulsions, no focal weakness, no numbness, no tingling, no tremor(s) - Hematologic/Lymphatic Hematologic/Lymphatic: no easy bruising - Constitutional General appearance: Present: cooperative, A&O X 3, morbidly obese, pleasant, no acute distress, answers questions appropriately - Eye Eye exam: Present: EOMI, PERRL, conjuntiva pink, sclera anicteric - Neck Neck exam general surgery: Present: supple, trachea midline. Absent: lymphadenopathy - Respiratory Respiratory exam: Present: CTAB. Absent: accessory muscle use, rales, rhonchi, wheezes - Cardiovascular Cardiovascular exam: Present: RRR, +S1, +S2. Absent: diastolic murmur, gallop, rubs, systolic murmur - GI/Abdominal GI/Abdominal exam: Present: normal bowel sounds, soft, no peritoneal signs. Absent: distended, tenderness - Extremities Exam Extremities exam: Present: warm, radial pulses palpable and symetrical. Absent : calf tenderness, cyanotic, pedal edema - Neurological Exam Neurological exam: Present: CN II-XII intact, oriented X3, no focal deficits. Absent: facial droop, speech deficit - Skin Skin exam: Present: dry, erythema (Circumferential Erythema in the left leg below the knee extending up to the ankle with some superficial discharge noted) , intact Internal Med - H&P Results - Labs Labs: WBC 10.5, hemoglobin 11, platelets 443, BUN to 23, creatinine 1.16, blood glucose 46 - Impressions CT of the head shows no acute bleed or stroke - Attending Attestation This document has been at least partially created by [email or web address] recognition technology by Dr. Colon. Errors in grammar, wording or other phrases may exist. If errors are found after the documentation is signed, they will be addressed individually in the addendum section of this document when appropriate.
[2017-02-20] MEDS ORDERED: Albuterol 2.5 MG/3 ML NEBULIZER IH PRN (19:59)
[2017-02-20] MEDS ORDERED: NON-FORMULARY MEDICATION 1 EACH EACH (Oxygen [Oxygen] 2 L) NS SCH (21:00)
[2017-02-20] MEDS: Budesonide/Formoterol 160/4.5 MDI IH SCH (23:14)
[2017-02-20] MEDS: *HR* OxyCODONE/APAP 7.5/325 TABLET PO PRN (23:23)
--- NOTE | 2017-02-21 07:14 | ECHO - Doppler Report ---
Echo with Saline Contrast Name: Allison Mcwilliams Date of Study: 02/20/2017 Date: 1955 Ht: 63.0 in Medical Record#: [id number] Age: 61 Wt: 326.0 lb Gender: Female BSA: 2.38 Order #: [id number] Location: [facility] Room #: 3[facility] Reading Physician: Jay Zurita DO, ERIK COE Jewel Grinder: Maya Arce Ordering Physician: Silvia Colon MD Primary Physician: Katie Taylor MD Impressions: LVEF 60%. Normal LV chamber size, wall thickness and function. Mild left ventricular diastolic dysfunction. Mildly dilated right ventricle with normal function. Moderately dilated left atrium. Mild mitral stenosis suggested by Doppler (MG 5 mmHg, HR 97 bpm). Visually, there is no significant stenosis. No evidence of pulmonary hypertension. Left Ventricular Wall Motion: Rest Echo Findings All wall segments showed normal motion. Findings: Study Quality * Technically adequate exam. ECG Findings * Normal sinus rhythm. Left Ventricle * LVEF 60%. * Normal LV chamber size, wall thickness and function. * Mild left ventricular diastolic dysfunction. Right Ventricle * Mildly dilated right ventricle with normal function. Left Atrium * Moderately dilated left atrium. Right Atrium * Mildly dilated right atrium. Interatrial Septum * Interatrial septum not well evaluated. Aortic Valve * Aortic valve not well visualized. * No aortic regurgitation. * No aortic stenosis. Mitral Valve * Mild mitral annular calcification * Trace mitral regurgitation. * Mild mitral stenosis suggested by Doppler (MG 5 mmHg, HR 97 bpm). Visually, there is no significant stenosis. Tricuspid Valve * Normal tricuspid valve structure and function. * Trace tricuspid regurgitation. * No evidence of pulmonary hypertension. Pulmonic Valve * Pulmonic valve not well visualized. * No pulmonic regurgitation. Aorta * Normally sized aortic root. Pericardium * The pericardium appears normal. IVC * Normal IVC dimensions and inspiratory collapse. Pulmonary Artery * Normal visualized portions of the main pulmonary artery. History Hypertension Diabetes Hypercholesteremia 05/01/2017 a Previous Echo was performed. Measurements: BP: 172/ 76 2D Normal Values RVIDd: 4.60 cm <2.7 cm IVSd: 1.00 cm 0.6 - 1.0 cm LVIDd: 5.50 cm 3.7 - 5.6 cm LVPWd: 1.00 cm 0.6 - 1.1 cm LVIDs: 3.60 cm 1.5 - 3.6 cm AO: 2.50 cm < 4.0 cm LA: 3.70 cm 2.0 - 4.0cm %FS: 34.50 cm >25 % LA volume: 66 Mitral Valve Peak Velocity 1.71 m/sec Mean Velocity:1.06 m/sec Peak Grad:12.00 mmHg Mean Grad:5.00 mmHg Pressure Time:65.00 msec Valve Area:3.38 cm2 Peak E:1.13 m/sec Peak A:1.48 m/sec E/A Ratio:0.8 Tricuspid Valve TV Regurg Peak Grad: 14.00mmHg TV Regurg Peak Collins: 1.86m/sec Updated by Jay Zurita DO, FACFlavia, ERIK, MELY on 02/21/2017 7:08:02 AM electronically signed on 02/21/2017 7:08:48 AM with status of Final Wall Motion [place]: 1=Normal, 2=Hypokinesis, 3=Akinesis, 4=Dyskinesis, 5=Aneurysmal, 6=Hyperkinetic, X=Not Visualized (Blank)=Missing
[2017-02-21] MEDS: Budesonide/Formoterol 160/4.5 MDI IH SCH (07:39)
[2017-02-21] MEDS ORDERED: *HR* LORazepam 2 MG/ML VIAL IVP ONE (08:39)
[2017-02-21] MEDS ORDERED: Furosemide 40 MG TABLET PO SCH (09:00)
[2017-02-21] MEDS ORDERED: Folic Acid 1 MG TABLET PO SCH (09:00)
[2017-02-21] MEDS ORDERED: FLUoxetine 20 MG CAPSULE PO SCH (09:00)
[2017-02-21] MEDS: *HR* OxyCODONE/APAP 7.5/325 TABLET PO PRN ×2 (09:48→16:45)
--- NOTE | 2017-02-21 10:59 | Carotid Imaging Report ---
Carotid Duplex Patient Name:Allison Mcwilliams Order Number:[id number] Procedure Date:02/20/2017 Date:8Age:61 yrs Gender:Female Lt BP:159 / 68 mmHg Rt.BP:172 / 76 mmHgHeart Rate: Location:[facility] Room #: 3[facility] Superintendent Terminal:Maya Arce Referring MD:Silvia Colon MD precast concrete products installer:Katie Taylor MD Reading MD:Magnus Storm MD , FACS Primary Indications:Possible TIA Risk Factors Yes/No Hypertension Yes Hypercholesterolemia Yes Diabetes Yes Smoker Previous Yes Yes Impressions: Findings: Bilateral ICA have a moderate, 40-59% stenosis. Recommendations: After imaging the patient returned to their room. Findings Carotid Duplex: Right: There is 40-59% stenosis in the right mid internal carotid artery. There is 40-59% stenosis in the right distal internal carotid artery. Left: There is 40-59% stenosis in the left proximal internal carotid artery. There is 40-59% stenosis in the left distal internal carotid artery. Prior Study: No prior study available for comparison. Carotid Results Right PSV EDV Assessment Proximal CCA 104 18 Normal Mid CCA 91 23 Normal Distal CCA 91 20 Normal Bifurcation 60 15 Normal Proximal ICA 93 16 Normal Mid ICA 141 29 40-59% stenosis Distal ICA 131 35 40-59% stenosis ECA 130 6 Normal Vertebral Artery 92 25 Normal Left PSV EDV Assessment Proximal CCA 123 25 Normal Mid CCA 117 19 Normal Distal CCA 105 23 Normal Bifurcation 91 20 Normal Proximal ICA 131 33 40-59% stenosis Mid ICA 108 21 Normal Distal ICA 132 25 40-59% stenosis ECA 144 21 Normal Vertebral Artery 70 16 Normal Ratio's Right ICA/CCA Ratio: 1.55 ICA/CCA Values: 141/91 Left ICA/CCA Ratio: 1.13 ICA/CCA Values: 132/117 Updated by Magnus Storm MD, FACS on 02/21/2017 10:55:03 AM Magnus Storm MD electronically signed on 02/21/2017 10:55:32 AM with status of Final
--- NOTE | 2017-02-21 14:41 | Discharge Summary ---
Date of Encounter: 02/21/17 Time of Encounter: 11:30 - Discharge Diagnosis (1) TIA (transient ischemic attack) Priority: Primary Status: Acute Comments: Patient with right-sided weakness and slurred speech that has now resolved, potentially due to hypoglycemia. Symptoms seemed to resolve after she was given glucose. Echocardiogram showed LVEF of 60%, mild diastolic dysfunction, mildly dilated left atrium, mild mitral stenosis, and no evidence of pulmonary hypertension. Head CT was negative, as was the head brain MRI. There are however mild chronic microvascular disease. Patient is asymptomatic at this time. She says that she feels much better than she did. She has no neurological symptoms at this time. Strength and grasps are strong and equal bilaterally, facial movement is symmetrical and tongue protrusion is normal movement against resistance is normal. Patient will follow up with primary care after discharge. Qualifiers: Transient cerebral ischemia type: unspecified Qualified Code(s): G45.9 - Transient cerebral ischemic attack, unspecified (2) Morbid obesity Priority: Secondary Status: Chronic Qualifiers: Obesity type: due to excess calories Qualified Code(s): E66.01 - Morbid ( severe) obesity due to excess calories (3) Hypoglycemia Priority: Secondary Status: Acute Comments: Patient states that she is managing her hypoglycemia at home with glucose tablets. Her A1c is 6.3. She did have an episode of hypoglycemia on arrival, however, she has been over 200 for most of her Accu-Cheks. (4) Venous stasis ulcer of lower extremity Priority: Secondary Status: Chronic Qualifiers: Laterality: unspecified laterality Qualified Code(s): I83.009 - Varicose veins of unspecified lower extremity with ulcer of unspecified site (5) Diabetes mellitus Priority: Secondary Status: Acute Qualifiers: Diabetes mellitus type: type 2 Diabetes mellitus complication status: with hypoglycemia Diabetes mellitus complication detail: without coma Diabetes mellitus extermination inspector insulin use: with extermination inspector use Qualified Code(s): E11.649 - Type 2 diabetes mellitus with hypoglycemia without coma; Z79.4 - termite control service representative ( current) use of insulin (6) DVT (deep venous thrombosis) Priority: Secondary Status: Chronic Qualifiers: DVT location: lower extremity Affected thrombotic vein of extremity: unspecified vein of extremity Laterality: left Chronicity: chronic Qualified Code(s): I82.502 - Chronic embolism and thrombosis of unspecified deep veins of left lower extremity - Discharge Medications Home Medications: Cyclobenzaprine [Flexeril] 10 mg PO TID 08/21/16 [History] FLUoxetine HCl [Prozac] 40 mg PO DAILY 08/21/16 [History] Montelukast [Singulair] 10 mg PO DAILY 08/21/16 [History] OxyCODONE/APAP 7.5/325 [Percocet 7.5/325 MG] 1 each PO Q6HR PRN 08/21/16 [ History] Losartan Potassium [Cozaar] 50 mg PO DAILY 09/12/16 [History] Pravastatin Sodium [Pravachol] 40 mg PO DAILY 09/12/16 [History] Albuterol Sulfate [Proair Respiclick] 90 mcg IH Q4-6H PRN #1 aer.pow.ba [Rx] Albuterol Neb [Proventil Neb] 2.5 mg IH QID PRN 11/13/16 [History] Esomeprazole Magnesium [Nexium 24Hr] 22.3 mg PO DAILY 11/13/16 [History] Oxygen 2 l NS HS 11/13/16 [History] Insulin Regular U-500 [HumuLIN R U-500] 60 unit SQ TIDWM 11/14/16 [History] Rivaroxaban [Xarelto] 20 mg PO 1700 #30 tablet 11/18/16 [Rx] Budesonide/Formoterol 160/4.5 [Symbicort 160/4.5] 2 puff IH BIDR 02/20/17 [ History] Carvedilol [Coreg] 6.25 mg PO BIDWM 02/20/17 [History] Folic Acid 1 mg PO DAILY 02/20/17 [History] Furosemide [Lasix] 40 mg PO DAILY 02/20/17 [History] Ipratropium/Albuterol Neb [Duoneb] 3 ml IH QID 02/20/17 [History] Potassium 495 mg PO TID 02/20/17 [History] Promethazine [Phenergan] 25 mg PO BID PRN 02/20/17 [History] Allergies/Adverse Reactions: Allergies cetirizine [From Zyrtec] Allergy (Verified 02/05/17 20:33) Swelling of Lip/Tongue/Throat codeine Adverse Reaction (Verified 02/05/17 20:33) Nausea lisinopril Adverse Reaction (Verified 02/05/17 20:33) Cough Procedures/tests Complete & Pending: Procedures Performed prior 72 hours Category Date Time Status MR head/brain wo con [MR] Routine MRI 02/21/17 10:00 Completed EV carotid duplex imaging BI Routine Y 02/20/17 14:39 Completed EV echocardiogram Routine Y 02/20/17 16:38 Completed Date of admission: 02/20/17 14:09 Primary care physician: Katie Taylor Consults: 02/20/17 16:39 Consult to Occupational Therapy [CONS] Routine Comment: Evaluate, develop and implement POC Reason for Consult: TIA Consult to Physical Therapy [CONS] Routine Comment: Evaluate, develop and implement POC Reason for Consult: TIA 02/21/17 07:46 Consult to Wound Care [CONS] Routine Reason for Consult: Left lower extremity wound Call Completed: No Discharging clinician: Monica Amos Anticipated date of discharge: 02/21/17 - Patient Status Disposition: Home, Self-Care Condition: Good Functional capacity at discharge: uses cane/walker Overall status at discharge: patient is back to baseline - Discharge Instructions Follow Up With: Katie Taylor MD [Primary Care Provider] - 04/24/17 1:15 pm - Diet and Activity Activity: resume usual activities as tolerated Diet: diabetic diet, low fat, low cholesterol Interval History: Mrs. Mcwilliams is a 61-year-old female history of hypertension, DM 2, morbid obesity, left lower extremity venous stasis ulcer, left lower extremity DVT. She awakened yesterday morning with right-sided weakness and numbness, she slid out of the bed and was weak on the right side and unable to lift her right arm or leg. She called EMS. She only took 1 dose of insulin yesterday morning was having hypoglycemia. Patient's blood sugar was in the 50s and was given glucose supplements and her symptoms have improved. She denies any weakness or numbness at all since yesterday. Patient has DVT to left lower extremity. The leg is noticeably larger and discolored in comparison to the right lower extremity. She has had a chronic wound for about 8 months, she has been on antibiotic, and has seen wound care at [place]. She declines an offer to see wound care here in [place]. She says she lifts 4 miles from the hospital in [place] and will continue to go there. Echocardiogram showed LVEF 60%, mild diastolic dysfunction. Mildly dilated left atrium mild mitral stenosis and no evidence of pulmonary hypertension. She denied chest pain. Troponin was negative. Patient had an MRI of head and brain that showed no acute intracranial abnormality, mild chronic microvascular disease. She also had unremarkable carotid Dopplers. There are 40-50% stenosed and require no intervention at this time. Patient states that she has been having hypoglycemia at home that she treats with glucose tablets. I did have education with the explained that he should not pour liquids or gel substances into the patient's mouth if she is unable to swallow or speak. Patient's A1c is 6.3. She states that she does have some elevated blood sugars at home. She said primarily her blood sugars are low. I am stopping her Victoza at this time and she will follow-up with her primary care physician in the coming week for reevaluation and medication change. Patient is ready to go home. She is stable for discharge. Hospital course: Ms. Mcwilliams is a 61 year old female - Time Spent with Patient Total time spent providing and/or coordinating discharge services: Less than 30 minutes - Constitutional Vitals: Temp Pulse Resp BP Pulse Ox 98.3 F 96 16 146/76 96 02/21/17 11:30 02/21/17 11:30 02/21/17 11:30 02/21/17 11:30 02/21/17 11:30 General appearance: Present: cooperative, A&O X 3, morbidly obese, pleasant, no acute distress, answers questions appropriately - Head Head exam: Present: normal inspection - Eye Eye exam: Present: normal appearance, conjuntiva pink - ENT ENT exam: Present: mucous membranes moist, normal exam, normal external ear exam - Neck Neck exam general surgery: Present: normal inspection. Absent: lymphadenopathy , tenderness - Respiratory Respiratory exam: Present: decreased breath sounds, CTAB. Absent: rales, respiratory distress, rhonchi, wheezes - Cardiovascular Cardiovascular exam: Present: RRR, +S1, +S2. Absent: diastolic murmur, systolic murmur - GI/Abdominal GI/Abdominal exam: Present: distended, normal bowel sounds, soft. Absent: splenomegaly, tenderness - Extremities Exam Extremities exam: Present: pedal edema, tenderness. Absent: normal inspection, warm, radial pulses palpable and symetrical - Neurological Exam Neurological exam: Present: alert, oriented X3, no focal deficits, strengths equal and symetr throughout. Absent: pronater drift, facial droop, speech deficit
[2017-02-21 15:02] VITALS: BP 154/79
[2017-02-21] MEDS ORDERED: *HR* Rivaroxaban 10 MG TABLET PO SCH (17:00)
== END 2017-02-21 17:12 | disposition home or self-care (01) ==
LOC: 3NENU
PROVIDERS: ADMIT Internal Medicine; ATTEND Registered Nurse

== ENCOUNTER 2017-09-03 13:14 | Inpatient (IN) ==
[2017-09-03 16:36] LABS: ABG Base Excess 8 mEq/L (-2 to 3); ABG HCO3 38 mEq/L (21-27); ABG Oxygen Saturation 99 % (95-98); ABG PCO2 74 mmHg (35-45); ABG PH 7.31 pH Units (7.32-7.45); ABG PO2 144 mmHg (85-104); ABG TCO2 40 mEq/L (20-26)
[2017-09-03 17:22] LABS: Bilirubin,Urine Negative (Negative); Blood,Urine Negative (Negative); Clarity,Urine Clear (Clear); Color,Urine Yellow (Yellow); Glucose,Urine (UA) Normal (Normal); Ketones,Urine Negative (Negative); Leukocyte Esterase,Urine Negative (Negative); Nitrite,Urine Negative (Negative); PH,Urine 6.5 pH Units (5.0-8.0); Protein,Urine Negative (Neg-Trace); Specific Gravity,Urine 1.013 (1.010-1.025); Urobilinogen,Urine Normal (Normal)
[2017-09-03] MEDS ORDERED: Acetaminophen 325 MG TABLET PO PRN (17:24)
[2017-09-03] MEDS ORDERED: Naloxone 0.4 MG/ML INJ IVP PRN (17:24)
[2017-09-03] MEDS ORDERED: Ondansetron 4 MG/2 ML VIAL IVP PRN (17:24)
[2017-09-03] MEDS ORDERED: Famotidine 20 MG TABLET PO PRN (17:38)
[2017-09-03] MEDS ORDERED: *HR* Dextrose 50 % in Water (Syg) 50 ML SYRINGE IVP PRN (17:42)
[2017-09-03] MEDS ORDERED: D5% in Water 1,000 ML IVC PRN (17:42)
[2017-09-03] MEDS ORDERED: Dextrose Gel 15 GM PO PRN ×2 (17:42)
[2017-09-03] MEDS ORDERED: Albuterol 2.5 MG/3 ML NEBULIZER IH PRN (17:43)
--- NOTE | 2017-09-03 17:47 | Internal Med History&Physical ---
<Berenice Morrow - Last Filed: 09/03/17 18:13> Date of Encounter: 09/03/17 Time of Encounter: 17:47 Assessment and Plan (1) Acute on chronic respiratory failure with hypoxia and hypercapnia Current visit: Yes Status: Acute Patient has a history of COPD CHF and FAVIOLA. She has BiPAP at home however her mask is broken and she has not used it for almost a month. I suspect that her FAVIOLA has worsened her CHF and COPD. I did discuss with patient the importance of using BiPAP at home. We will consult health and social care teacher concerning BiPAP set up at home WBC slightly elevated on previous cBC however I will recheck-I do not suspect that this is infectious process (2) Acute exacerbation of chronic obstructive airways disease Current visit: Yes Status: Acute Patient has history of COPD she is noncompliant with her BiPAP which I suspect her FAVIOLA is exacerbating COPD. We will continue with oxygen titrated to maintain SPO2 greater than 92% We will continue bronchodilators (3) Congestive heart failure Current visit: Yes Status: Acute 1 previous echo february 2017 shows EF of 60% with mild diastolic dysfunction- patient has been noncompliant with her BiPAP as well as patient admits to noncompliance to low-sodium diet which I suspect is exacerbating her CHF. We will continue diuresing patient [address] patient on a 1500 mL fluid restriction 3 monitor intake and output daily weights Qualifiers: Congestive heart failure type: unspecified congestive heart failure type Congestive heart failure chronicity: acute on chronic Qualified Code(s): I50.9 - Heart failure, unspecified (4) Diabetes mellitus Current visit: No Status: Chronic 1 Accu-Cheks before meals at bedtime with sliding scale insulin Qualifiers: Diabetes mellitus type: type 2 Diabetes mellitus complication status: with skin complications Diabetes mellitus complication detail: with other skin ulcer 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: with livestock trucker use Qualified Code(s): E11.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; Z79.4 - alf (current) use of insulin; Z79.4 - alf (current) use of insulin; Z79.4 - alf (current) use of insulin; Z79.4 - shirt cleaner (current) use of insulin (5) History of sleep apnea Current visit: No Status: Chronic 1 we will continue with BiPAP 2 consult health and social care teacher for outpatient BiPAP (6) DVT prophylaxis Current visit: Yes Status: Acute Lovenox subcutaneous Internal Medicine - H&P: HPI Chief complaint: Dyspnes Admitted From: Hospital to Hospital Transfer Plans for Post Hospital Care: Home History of present illness: Ms. Mcwilliams is a 61 year old female past medical history of diabetes COPD GERD hyperlipidemia hypertension and FAVIOLA. According to the patient she is on BiPAP at home however her mask had been damaged. She was without it for approximately 1 month. It appears the past few days she has been experiencing increasing shortness of breath as well as lower extremity edema and increased abdominal girth. She denied any chest pain cough nausea vomiting diarrhea. She has had subjective fevers as well as weight gain. She does admit that she is not compliant to a low-sodium diet. She was admitted and outlying facility [facility]- apparently while there -her respiratory status worsened and became more confused-there was concern about possible intubation and was transferred to this facility for further management. Presently the patient does not appear to be any respiratory distress she is on BiPAP and maintaining saturations. She denies any shortness of breath or chest pain. Previous lab work does show an elevation in her white count ABG with respiratory acidosis but slightly improved from previous ABG. Review of chest x-ray completed on the does show some vascular congestion. She is hemodynamically stable this time. Dr Schultz and I saw patient together and agree on plan . Past Med Surg Social Fam HX - Past Medical History Medical history: arthritis, asthma, COPD, diabetes, GERD, hyperlipidemia, hypertension, osteoporosis, venous stasis, other Psychiatric history: anxiety, depression - Past Surgical History Surgical History: other - Social History Smoking Status: Former smoker Smokeless Tobacco Status: No Alcohol use: none Drug use: none - Family History Brother Living Status: Father Living Status: Mother Living Status: Hx Family Respiratory Disorders: Yes Internal Medicine - H&P: Meds Cyclobenzaprine [Flexeril] 10 mg PO TID PRN 08/21/16 [History] FLUoxetine HCl [Prozac] 40 mg PO DAILY 08/21/16 [History] Montelukast [Singulair] 10 mg PO DAILY 08/21/16 [History] OxyCODONE/APAP 7.5/325 [Percocet 7.5/325 MG] 1 each PO Q6HR PRN 08/21/16 [ History] Losartan Potassium [Cozaar] 50 mg PO DAILY 09/12/16 [History] Pravastatin Sodium [Pravachol] 40 mg PO DAILY 09/12/16 [History] Albuterol Neb [Proventil Neb] 2.5 mg IH QID PRN 11/13/16 [History] Esomeprazole Magnesium [Nexium 24Hr] 22.3 mg PO DAILY 11/13/16 [History] Oxygen 2 l NS HS 11/13/16 [History] Folic Acid 1 mg PO DAILY 02/20/17 [History] Furosemide [Lasix] 10 mg PO 1700 05/08/17 [History] Furosemide [Lasix] 20 mg PO QAM 05/08/17 [History] Fluticasone/Salmeterol [Advair 100-50 Diskus] 1 puff IH BID 07/02/17 [History] Insulin Human Regular [HumuLIN R] 10 unit SQ HS 07/02/17 [History] Insulin Human Regular [HumuLIN R] 14 unit SQ BIDWM 07/02/17 [History] Multivitamin [One Daily Essential] 1 tab PO DAILY 07/02/17 [History] Ranitidine HCl [Zantac] 150 mg PO DAILY PRN 07/02/17 [History] 3 Allergy/AdvReac Type Severity Reaction Status Date / Time cetirizine [From [facility]] Allergy Swelling Verified 08/31/17 21:42 of Lip/Tongue/Throat codeine AdvReac Nausea Verified 08/31/17 21:42 lisinopril AdvReac Cough Verified 08/31/17 21:42 All Systems PM: A 10-system review of systems was performed and is negative for pertinent findings except as documented above in the HPI. - Constitutional Constitutional: fever(s), weight gain, no chills, no night sweats - EENT Eyes: no change in vision, no discharge, no pain, no photophobia Nose, mouth and throat: no dysphagia, no nasal discharge, no neck pain, no sore throat - Cardiovascular Cardiovascular ROS IM: no chest pain, no diaphoresis, no dyspnea, no lightheadedness, no palpitations, no syncope - Respiratory Respiratory: dyspnea on exertion, no cough, no dyspnea, no excessive phlegm production - Gastrointestinal Gastrointestinal: bloating, no abdominal pain, no diarrhea, no hematemesis, no hematochezia, no melena, no nausea, no vomiting - Genitourinary Genitourinary: no change in urinary stream, no dysuria, no flank pain, no hematuria - Integumentary Integumentary IM: no rash, no unusual bruising - Neurological Neurological ROS: no confusion, no convulsions, no focal weakness, no numbness, no tingling, no tremor(s) - Hematologic/Lymphatic Hematologic/Lymphatic: no easy bruising - Constitutional Vitals: Pulse Resp BP Pulse Ox 98 29 126/59 99 09/03/17 16:06 09/03/17 16:09 09/03/17 16:06 09/03/17 16:09 General appearance: Present: A&O X 3, morbidly obese, answers questions appropriately - Head Head exam: Present: atraumatic, normocephalic - Eye Eye exam: Present: PERRL, conjuntiva pink, sclera anicteric Pupils: Present: PERRL - Neck Neck exam general surgery: Present: supple, trachea midline. Absent: lymphadenopathy - Respiratory Respiratory exam: Present: wheezes - Cardiovascular Cardiovascular exam: Present: RRR, +S1, +S2. Absent: diastolic murmur, gallop, rubs, systolic murmur - GI/Abdominal GI/Abdominal exam: Present: normal bowel sounds, soft, no peritoneal signs. Absent: distended, tenderness - Extremities Exam Extremities exam: Present: pedal edema, warm, radial pulses palpable and symmetrical. Absent: calf tenderness, cyanotic - Neurological Exam Neurological exam: Present: CN II-XII intact, oriented X3, no focal deficits. Absent: pronater drift, facial droop, speech deficit - Skin Skin exam: Present: dry, intact Internal Med - H&P Results - Labs CBC & Chem 7: 09/03/17 17:44 09/03/17 17:44 Labs: Urine 09/03/17 Range/Units 16:30 Urine Color Yellow (Yellow) Urine Clarity Clear (Clear) Urine pH 6.5 (5.0-8.0) pH Units Ur Specific [place] 1.013 (1.010-1.025) Urine Protein Negative (Neg-Trace) mg/dL Urine Glucose (UA) Normal (Normal) mg/dL - ABG Interpretation ABG results: 09/03/17 16:28 ABG pH 7.31 L ABG pCO2 74 H* ABG pO2 144 H ABG HCO3 38 H ABG Total CO2 40 H ABG O2 Saturation 99 H ABG Base Excess 8 H <Ambrocio Schultz - Last Filed: 09/03/17 18:27> Date of Encounter: 09/03/17 Internal Medicine - H&P: HPI History of present illness: Ms. Mcwilliams is a 61 year old female All Systems PM: A 10-system review of systems was performed and is negative for pertinent findings except as documented above in the HPI. - Constitutional Vitals: Pulse Resp BP Pulse Ox 98 29 126/59 99 09/03/17 16:06 09/03/17 16:09 09/03/17 16:06 09/03/17 16:09 Internal Med - H&P Results - Labs CBC & Chem 7: 09/03/17 17:44 09/03/17 17:44 Labs: Short CBC 09/03/17 Range/Units 17:44 WBC 9.7 (4.3-11.1) K/mcL Hgb 12.3 (11.5-15.4) g/dL Hct 41.1 (35.3-44.9) % Plt Count 279 (140-400) K/mcL Neutrophils # 6.7 (1.6-8.9) K/mcL BMP 09/03/17 17:44 Sodium 143 Potassium 4.1 Chloride 101 Carbon Dioxide 32 H BUN 11 Creatinine 0.68 Glucose 151 H Calcium 9.0 Urine 09/03/17 Range/Units 16:30 Urine Color Yellow (Yellow) Urine Clarity Clear (Clear) Urine pH 6.5 (5.0-8.0) pH Units Ur Specific [place] 1.013 (1.010-1.025) Urine Protein Negative (Neg-Trace) mg/dL Urine Glucose (UA) Normal (Normal) mg/dL - ABG Interpretation ABG results: 09/03/17 16:28 ABG pH 7.31 L ABG pCO2 74 H* ABG pO2 144 H ABG HCO3 38 H ABG Total CO2 40 H ABG O2 Saturation 99 H ABG Base Excess 8 H - Attending Attestation I independently interviewed and examined this pt. My input is reflected in the H&P by YASMEEN Morrow, and I agree with her findings, assessment and plan. See my Event Note.
[2017-09-03 17:51] LABS: Basophils # 0.1 K/mcL (0.0-0.2); Basophils % 0.7 %; Eosinophils # 0.3 K/mcL (0.0-0.6); Eosinophils % 2.7 %; Hematocrit 41.1 % (35.3-44.9); Hemoglobin 12.3 g/dL (11.5-15.4); Immature Granulocytes % 0.3 % (0-4); Lymphocytes # 1.9 K/mcL (0.6-4.6); Lymphocytes % 19.8 %; Mean Corpuscular HGB Conc 29.9 g/dL (31.6-35.5); Mean Corpuscular Hemoglobin 25.1 pg (28.0-33.3); Mean Corpuscular Volume 83.7 fL (83.0-100.0); Mean Platelet Volume 9.2 fL (9.4-12.4); Monocytes # 0.7 K/mcL (0.0-1.3); Monocytes % 7.1 %; Neutrophils # 6.7 K/mcL (1.6-8.9); Platelet Count 279 K/mcL (140-400); Red Blood Count 4.91 M/mcL (3.82-4.97); Red Cell Distribution Width 23.5 % (11.5-14.5); Segmented Neutrophils % 69.4 %
[2017-09-03 18:02] LABS: BUN/Creatinine Ratio 16 (6-26); Blood Urea Nitrogen 11 mg/dL (7-20); Carbon Dioxide 32 mEq/L (19-29); Chloride 101 mEq/L (98-109); Glucose 151 mg/dL (70-99); Osmolality,Calculated 298 (280-300); Potassium 4.1 mEq/L (3.5-4.5); Sodium 143 mEq/L (136-145); eGFR For African Americans > 60 (> 60); eGFR For Non-African Americans > 60 (> 60)
[2017-09-03 18:11] LABS: Anisocytosis 2+ (Not Present)
[2017-09-03 18:12] LABS: Platelet Estimate Normal (Normal)
--- NOTE | 2017-09-03 18:18 | Event Note ---
Date of Encounter: 09/03/17 Time of Encounter: 17:30 Brief admit note: 78 yo female with FAVIOLA on Bipap, chronic resp failure on home O2, morbid obesity and Diastolic CHF (AF 60% February 2017) admitted for acute on chronic diastolic CHF and acute on chronic hypoxemic resp failure. PT states she is unable to get a new mask for her nocturnal bipap and has not used this for over a month. She states she has been compliant with her meds but not with diet. PT quit smoking 6 mos ago. Pt presesnts on transfer on Bipap. She received IV lasix prior to trnafer and promptly diuresed 1400 mL thus far once niño placed. She report sig symptomatic improvement. No evidence of infection. No evidence of acute COPD exac. Full H&P pending by Berenice Morrow NP. I saw the pt with her and we discussed the case in detail. Will continue with Lasix at 80 mg IV tid. Closely monitor and wean Bipap as able. All else as per H&P. Vitals remain stable. Check CXR. 48 min critical care time spent in care and management of this pt.
[2017-09-03] MEDS: Furosemide 80 MG in 0.9 % Sodium Chloride 50 ML IVPB SCH ×2 (19:49→20:34)
[2017-09-03] MEDS: *HR* OxyCODONE/APAP 7.5/325 TABLET PO PRN (19:49)
[2017-09-03] MEDS: Insulin LISPRO 300 UNITS/3 ML VIAL SQ SCH (19:49)
[2017-09-03] MEDS: Ipratropium/Albuterol Neb 3 ML IH SCH (22:50)
[2017-09-03] MEDS: Budesonide/Formoterol 80/4.5 MDI IH SCH (22:50)
[2017-09-04] MEDS: *HR* OxyCODONE/APAP 7.5/325 TABLET PO PRN ×3 (02:01→23:11)
[2017-09-04] MEDS: Ipratropium/Albuterol Neb 3 ML IH SCH ×4 (04:21→22:00)
[2017-09-04] MEDS: *HR* Enoxaparin 40 MG/0.4 ML SYRINGE SQ SCH (05:50)
[2017-09-04] MEDS: Multivit/Ca/Min/Fe/FA 1 TAB TABLET PO SCH (08:41)
[2017-09-04] MEDS: Folic Acid 1 MG TABLET PO SCH (08:41)
[2017-09-04] MEDS: FLUoxetine 20 MG CAPSULE PO SCH (08:41)
[2017-09-04] MEDS: Furosemide 80 MG in 0.9 % Sodium Chloride 50 ML IVPB SCH ×3 (08:42→20:46)
[2017-09-04] MEDS: Insulin LISPRO 300 UNITS/3 ML VIAL SQ SCH ×4 (08:43→20:38)
[2017-09-04 08:52] LABS: Hematocrit 39.4 % (35.3-44.9); Hemoglobin 11.8 g/dL (11.5-15.4); Mean Corpuscular HGB Conc 29.9 g/dL (31.6-35.5); Mean Corpuscular Hemoglobin 25.2 pg (28.0-33.3); Mean Platelet Volume 9.8 fL (9.4-12.4); Platelet Count 272 K/mcL (140-400); Red Blood Count 4.69 M/mcL (3.82-4.97); Red Cell Distribution Width 23.6 % (11.5-14.5)
[2017-09-04 09:04] LABS: BUN/Creatinine Ratio 19 (6-26); Blood Urea Nitrogen 13 mg/dL (7-20); Carbon Dioxide 34 mEq/L (19-29); Chloride 98 mEq/L (98-109); Glucose 152 mg/dL (70-99); Osmolality,Calculated 295 (280-300); Potassium 3.6 mEq/L (3.5-4.5); Sodium 141 mEq/L (136-145); eGFR For African Americans > 60 (> 60); eGFR For Non-African Americans > 60 (> 60)
--- NOTE | 2017-09-04 10:27 | Internal Med Progress Note ---
<Jr Farooq - Last Filed: 09/04/17 14:35> Date of Encounter: 09/04/17 Time of Encounter: 08:45 - Assessment and plan (1) Acute on chronic respiratory failure with hypoxia and hypercapnia Current Visit: Yes Status: Acute Assessment and plan: History of COPD, CHF, obstructive sleep apnea. Admits noncompliance with BiPAP at home due to her mask being broken; has not used it in almost 1 month. Patient has been on BiPAP for almost her entire stay. O2 saturations morning was 95. CHF and COPD likely worsened by FAVIOLA. Plan: -director dental services have been consulted concerning BiPAP set up at home. -Patient currently on BiPAP; no respiratory distress. -Vital sign assessment Q4H. -Maintain O2 sat. >92. (2) Acute exacerbation of chronic obstructive airways disease Current Visit: Yes Status: Acute Assessment and plan: Known history of COPD; likely exacerbated by obstructive sleep apnea and noncompliance with BiPAP. Plan: -Maintain O2 sat > 92%. -Vital sign assessment Q4H. -Albuterol nebulizer 2.5 mg IH Q2H PRN. -Symbicort 2 puffs BID. -DuoNeb 3 mL 4 times a day -Singulair 10 mg PO daily (3) Congestive heart failure Current Visit: Yes Status: Acute Assessment and plan: Previous ECHO in February 2017: EF 60%; mild diastolic dysfunction. Noncompliance with low salt diet. Plan: -1500 mL fluid resection. -Strict I and O's. -Daily weights. -Lasix 80 mg IV 3 times a day. -Continuous cardiac monitoring Qualifiers: Congestive heart failure type: unspecified congestive heart failure type Congestive heart failure chronicity: acute on chronic Qualified Code(s): I50.9 - Heart failure, unspecified (4) Diabetes mellitus Current Visit: No Status: Chronic Assessment and plan: Accu-Cheks before meals and at bedtime with sliding scale insulin. ADA diet. 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 director dental services have been consulted. (6) DVT prophylaxis Current Visit: Yes Status: Acute Assessment and plan: Lovenox 40 mg SQ - Time Spent With Patient less than 15 minutes - Subjective Interval history: Patient was seen and examined at bedside this morning. Patient reports that when she came into the hospital, she experienced swelling in her abdomen and lower extremities. She states that since receiving Lasix, the swelling in her abdomen has subsided somewhat, particularly in the lower abdomen. She reports that the Lasix has done little to improve the swelling in her lower extremities. Patient states that she has been on BiPAP almost the entire time during her hospital stay. She reports that she was unable to use her BiPAP machine at home due to the mask being broken. Patient denies any pain or respiratory distress at the moment. - Constitutional Vitals: Temp Pulse Resp BP Pulse Ox 99.3 F 97 22 157/74 95 09/04/17 07:01 09/04/17 07:01 09/04/17 07:01 09/04/17 07:01 09/04/17 07:01 General appearance: Present: A&O X 3, morbidly obese, answers questions appropriately - Head Head exam: Present: atraumatic, normocephalic - Eye Eye exam: Present: PERRL, conjuntiva pink, sclera anicteric Pupils: Present: PERRL - Neck Neck exam general surgery: Present: supple, trachea midline. Absent: lymphadenopathy - Respiratory Additional comments: Currently on BiPAP - Cardiovascular Cardiovascular exam: Present: RRR, +S1, +S2. Absent: diastolic murmur, gallop, rubs, systolic murmur - GI/Abdominal GI/Abdominal exam: Present: distended Additional comments: Abdomen still distended. Patient states that abdominal swelling has improved slightly since arrival. - Extremities Exam Extremities exam: Present: warm, radial pulses palpable and symmetrical. Absent : calf tenderness, cyanotic, pedal edema - Skin Skin exam: Present: dry, intact Internal Medicine: Result - Labs CBC & Chem 7: 09/04/17 08:33 09/04/17 08:33 Labs: Short CBC 09/03/17 09/04/17 Range/Units 17:44 08:33 WBC 9.7 9.0 (4.3-11.1) K/mcL Hgb 12.3 11.8 (11.5-15.4) g/dL Hct 41.1 39.4 (35.3-44.9) % Plt Count 279 272 (140-400) K/mcL Neutrophils # 6.7 (1.6-8.9) K/mcL BMP 09/03/17 09/04/17 17:44 08:33 Sodium 143 141 Potassium 4.1 3.6 Chloride 101 98 Carbon Dioxide 32 H 34 H BUN 11 13 Creatinine 0.68 0.69 Glucose 151 H 152 H Calcium 9.0 9.0 Urine 09/03/17 Range/Units 16:30 Urine Color Yellow (Yellow) Urine Clarity Clear (Clear) Urine pH 6.5 (5.0-8.0) pH Units Ur Specific [place] 1.013 (1.010-1.025) Urine Protein Negative (Neg-Trace) mg/dL Urine Glucose (UA) Normal (Normal) mg/dL - ABG Interpretation ABG results: ABG ABG pH 7.31 pH Units (7.32-7.45) L 09/03/17 16:28 ABG pCO2 74 mmHg (35-45) H* 09/03/17 16:28 ABG pO2 144 mmHg (85-104) H 09/03/17 16:28 ABG O2 Saturation 99 % (95-98) H 09/03/17 16:28 - Impressions Impressions Chest X-Ray 09/03/17 17:29 IMPRESSION: Patchy opacity in the mid to lower lungs is stable to decreased when compared to the previous exam. D/ / Tc Jones MD / Tc Jones MD Interpreting Provider: Tc Jones MD Consult Discharge Plan - Plan Referrals: NONE,PCP [Primary Care Provider] - <Ambrocio Schultz - Last Filed: 09/04/17 15:25> Date of Encounter: 09/04/17 - Constitutional Vitals: Temp Pulse Resp BP Pulse Ox 98.6 F 69 29 159/75 91 09/04/17 12:45 09/04/17 12:45 09/04/17 15:12 09/04/17 12:45 09/04/17 15:12 Internal Medicine: Result - Labs CBC & Chem 7: 09/04/17 08:33 09/04/17 08:33 Labs: Short CBC 09/03/17 09/04/17 Range/Units 17:44 08:33 WBC 9.7 9.0 (4.3-11.1) K/mcL Hgb 12.3 11.8 (11.5-15.4) g/dL Hct 41.1 39.4 (35.3-44.9) % Plt Count 279 272 (140-400) K/mcL Neutrophils # 6.7 (1.6-8.9) K/mcL BMP 09/03/17 09/04/17 17:44 08:33 Sodium 143 141 Potassium 4.1 3.6 Chloride 101 98 Carbon Dioxide 32 H 34 H BUN 11 13 Creatinine 0.68 0.69 Glucose 151 H 152 H Calcium 9.0 9.0 Urine 09/03/17 Range/Units 16:30 Urine Color Yellow (Yellow) Urine Clarity Clear (Clear) Urine pH 6.5 (5.0-8.0) pH Units Ur Specific [place] 1.013 (1.010-1.025) Urine Protein Negative (Neg-Trace) mg/dL Urine Glucose (UA) Normal (Normal) mg/dL - ABG Interpretation ABG results: ABG ABG pH 7.31 pH Units (7.32-7.45) L 09/03/17 16:28 ABG pCO2 74 mmHg (35-45) H* 09/03/17 16:28 ABG pO2 144 mmHg (85-104) H 09/03/17 16:28 ABG O2 Saturation 99 % (95-98) H 09/03/17 16:28 - Impressions Impressions Chest X-Ray 09/03/17 17:29 IMPRESSION: Patchy opacity in the mid to lower lungs is stable to decreased when compared to the previous exam. D/ / Tc Jones MD / Tc Jones MD Interpreting Provider: Tc Jones MD - Attending Attestation I performed an independent interview and examine this patient. I agree with the findings, assessment, and plan of Dr. Farooq. Patient with acute on chronic hypoxemic respiratory failure, multifactorial in nature but predominantly due to acute on chronic diastolic CHF. I do question if patient may also have some underlying cor pulmonale, ulnar hypertension. Despite not noted on recent echo, a right heart catheterization would ideal test for this. Nonetheless, the treatment for her would be BiPAP, weight loss and strict compliance with a low salt diet, and blood pressure control. Patient has improved significantly with IV Lasix, and a beta riddhi has been added for improved blood pressure control. Will likely be adding an ELYSSA inhibitor as well soon. Social work has been involved, and we will ensure patient has a mask so she can use her BiPAP every night uninterrupted. Despite discharge in 1 -2 days if she continues to improve.
[2017-09-04] MEDS: Budesonide/Formoterol 80/4.5 MDI IH SCH ×2 (10:42→22:00)
[2017-09-05] MEDS: Ipratropium/Albuterol Neb 3 ML IH SCH ×4 (04:25→22:41)
[2017-09-05] MEDS: *HR* Enoxaparin 40 MG/0.4 ML SYRINGE SQ SCH (05:14)
[2017-09-05 08:20] LABS: Hematocrit 39.3 % (35.3-44.9); Hemoglobin 12.1 g/dL (11.5-15.4); Mean Corpuscular HGB Conc 30.8 g/dL (31.6-35.5); Mean Corpuscular Hemoglobin 25.3 pg (28.0-33.3); Mean Corpuscular Volume 82.2 fL (83.0-100.0); Mean Platelet Volume 9.4 fL (9.4-12.4); Platelet Count 278 K/mcL (140-400); Red Blood Count 4.78 M/mcL (3.82-4.97); Red Cell Distribution Width 22.8 % (11.5-14.5)
[2017-09-05 08:33] LABS: BUN/Creatinine Ratio 21 (6-26); Blood Urea Nitrogen 15 mg/dL (7-20); Calcium 9.1 mg/dL (8.6-10.8); Carbon Dioxide 35 mEq/L (19-29); Chloride 97 mEq/L (98-109); Glucose 177 mg/dL (70-99); Osmolality,Calculated 299 (280-300); Potassium 3.5 mEq/L (3.5-4.5); Sodium 142 mEq/L (136-145); eGFR For African Americans > 60 (> 60); eGFR For Non-African Americans > 60 (> 60)
[2017-09-05] MEDS: Insulin LISPRO 300 UNITS/3 ML VIAL SQ SCH ×4 (08:59→20:22)
[2017-09-05] MEDS: FLUoxetine 20 MG CAPSULE PO SCH (09:00)
[2017-09-05] MEDS: Furosemide 80 MG in 0.9 % Sodium Chloride 50 ML IVPB SCH ×3 (09:00→20:21)
[2017-09-05] MEDS: Multivit/Ca/Min/Fe/FA 1 TAB TABLET PO SCH (09:00)
[2017-09-05] MEDS: Folic Acid 1 MG TABLET PO SCH (09:00)
[2017-09-05] MEDS: Budesonide/Formoterol 80/4.5 MDI IH SCH ×2 (10:23→22:42)
[2017-09-05] MEDS: *HR* OxyCODONE/APAP 7.5/325 TABLET PO PRN ×2 (11:47→23:37)
--- NOTE | 2017-09-05 13:50 | Internal Med Progress Note ---
Date of Encounter: 09/05/17 Time of Encounter: 10:00 - Assessment and plan (1) Acute on chronic respiratory failure with hypoxia and hypercapnia Current Visit: Yes Status: Acute Assessment and plan: History of COPD, CHF, obstructive sleep apnea. Admits noncompliance with BiPAP at home due to her mask being broken; has not used it in almost 1 month. Patient has been on BiPAP for almost her entire stay. O2 saturations morning was 95. CHF and COPD likely worsened by FAVIOLA. Plan: -social services aide have been consulted concerning BiPAP set up at home. -Patient currently on BiPAP; no respiratory distress. -Vital sign assessment Q4H. -Maintain O2 sat. >92. 09/05: Multifactorial history failure due to: Acute on chronic diastolic CHF Possible underlying pulmonary hypertension Obstructive sleep apnea on BiPAP Likely a component of chronic obesity hypoventilation syndrome. Patient continues to improve. We will continue diuresis renal function allows. Her renal function remained stable. Blood pressure control improved with the addition of beta riddhi. No evidence of infection. Arrangements are being made for home BiPAP. Will add melatonin at night to assist with sleep. Continue to monitor. No evidence of infection. No evidence of COPD exacerbation. (2) Emphysema of lung Current Visit: No Status: Chronic Assessment and plan: Discussion above. No evidence of acute exacerbation. Qualifiers: Emphysema type: panlobular Qualified Code(s): J43.1 - Panlobular emphysema (3) Systemic inflammatory response syndrome (SIRS) associated with organ dysfunction Current Visit: No Status: Acute Assessment and plan: Resolving. (4) Morbid obesity with BMI of 60.0-69.9, adult Current Visit: No Status: Chronic (5) Diabetes mellitus Current Visit: No Status: Chronic Assessment and plan: Accu-Cheks before meals and at bedtime with sliding scale insulin. ADA diet. Qualifiers: Diabetes mellitus type: type 2 Diabetes mellitus complication status: with skin complications Diabetes mellitus complication detail: with other skin ulcer Diabetes mellitus exterminator helper insulin use: with longterm use Qualified Code(s): E11.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; Z79.4 - exterminator helper (current) use of insulin; Z79.4 - exterminator helper (current) use of insulin; Z79.4 - snf (current) use of insulin; Z79.4 - exterminator helper (current) use of insulin (6) Acute exacerbation of chronic obstructive airways disease Current Visit: Yes Status: Acute Assessment and plan: Known history of COPD; likely exacerbated by obstructive sleep apnea and noncompliance with BiPAP. Plan: -Maintain O2 sat > 92%. -Vital sign assessment Q4H. -Albuterol nebulizer 2.5 mg IH Q2H PRN. -Symbicort 2 puffs BID. -DuoNeb 3 mL 4 times a day -Singulair 10 mg PO daily 09/05: No acute exac, no steroids, monitor (7) Hypercapnia Current Visit: No Status: Acute (8) TIA (transient ischemic attack) Current Visit: No Status: Acute Qualifiers: Transient cerebral ischemia type: unspecified Qualified Code(s): G45.9 - Transient cerebral ischemic attack, unspecified (9) Morbid obesity Current Visit: No Status: Chronic (10) Hypoglycemia Current Visit: No Status: Acute (11) Venous (peripheral) insufficiency Current Visit: No Status: Acute (12) Venous ulcer Current Visit: No Status: Acute (13) Cellulitis of left leg Current Visit: No Status: Acute (14) History of chronic obstructive pulmonary disease Current Visit: No Status: Chronic (15) History of sleep apnea Current Visit: No Status: Chronic (16) COPD exacerbation Current Visit: No Status: Acute (17) Congestive heart failure Current Visit: Yes Status: Acute Qualifiers: Congestive heart failure type: unspecified congestive heart failure type Congestive heart failure chronicity: acute on chronic Qualified Code(s): I50.9 - Heart failure, unspecified (18) Hypoxia Current Visit: No Status: Acute (19) DVT prophylaxis Current Visit: Yes Status: Acute - Subjective Interval history: CC: Shortness of breath HPI: Ms. Mcwilliams is a 61 year old female past medical history of diabetes COPD GERD hyperlipidemia hypertension and FAVIOLA. According to the patient she is on BiPAP at home however her mask had been damaged. She was without it for approximately 1 month. It appears the past few days she has been experiencing increasing shortness of breath as well as lower extremity edema and increased abdominal girth. She denied any chest pain cough nausea vomiting diarrhea. She has had subjective fevers as well as weight gain. She does admit that she is not compliant to a low-sodium diet. She was admitted and outlying facility [facility]- apparently while there -her respiratory status worsened and became more confused-there was concern about possible intubation and was transferred to this facility for further management. Presently the patient does not appear to be any respiratory distress she is on BiPAP and maintaining saturations. She denies any shortness of breath or chest pain. Previous lab work does show an elevation in her white count ABG with respiratory acidosis but slightly improved from previous ABG. Review of chest x-ray completed on the does show some vascular congestion. She is hemodynamically stable this time. Dr Schultz and I saw patient together and agree on plan . 09/05: Patient continues to improve. She continues to diurese with IV Lasix. She remains on BiPAP at night, as per her routine. She does wake up frequently through the night taking the mask off inadvertently while not being aware of this. She denies any fevers or chills. No chest pain. She states her breathing is almost back to baseline. No wheezing. No cough. No fevers or chills. Her lower extremity edema has improved significantly. - Constitutional Vitals: Temp Pulse Resp BP Pulse Ox 98.2 F 68 18 151/85 95 09/05/17 11:45 09/05/17 11:45 09/05/17 11:45 09/05/17 11:45 09/05/17 11:45 General appearance: Present: mild distress, A&O X 3, morbidly obese, answers questions appropriately Exam: Very minimal conversational dyspnea - Head Head exam: Present: atraumatic, normocephalic - Eye Eye exam: Present: PERRL, conjuntiva pink, sclera anicteric Pupils: Present: PERRL - Neck Neck exam general surgery: Present: supple, trachea midline. Absent: lymphadenopathy - Respiratory Respiratory exam: Present: decreased breath sounds, rales - Cardiovascular Cardiovascular exam: Present: RRR, +S1, +S2. Absent: diastolic murmur, gallop, rubs, systolic murmur - GI/Abdominal GI/Abdominal exam: Present: normal bowel sounds, soft, no peritoneal signs. Absent: distended, tenderness - Extremities Exam Extremities exam: Present: pedal edema (2+ edema bilaterally, improved) - Neurological Exam Neurological exam: Present: CN II-XII intact, oriented X3, no focal deficits. Absent: pronater drift, facial droop, speech deficit - Skin Skin exam: Present: dry, intact Internal Medicine: Result - Labs CBC & Chem 7: 09/05/17 08:08 09/05/17 08:08 Labs: Short CBC 09/05/17 Range/Units 08:08 WBC 9.3 (4.3-11.1) K/mcL Hgb 12.1 (11.5-15.4) g/dL Hct 39.3 (35.3-44.9) % Plt Count 278 (140-400) K/mcL BMP 09/05/17 08:08 Sodium 142 Potassium 3.5 Chloride 97 L Carbon Dioxide 35 H BUN 15 Creatinine 0.73 Glucose 177 H Calcium 9.1 - ABG Interpretation ABG results: ABG ABG pH 7.31 pH Units (7.32-7.45) L 09/03/17 16:28 ABG pCO2 74 mmHg (35-45) H* 09/03/17 16:28 ABG pO2 144 mmHg (85-104) H 09/03/17 16:28 ABG O2 Saturation 99 % (95-98) H 09/03/17 16:28 Consult Discharge Plan - Plan Referrals: NONE,PCP [Primary Care Provider] -
[2017-09-05] MEDS ORDERED: Melatonin 3 MG TABLET PO SCH (21:00)
[2017-09-06 03:52] LABS: BUN/Creatinine Ratio 25 (6-26); Blood Urea Nitrogen 23 mg/dL (7-20); Calcium 8.9 mg/dL (8.6-10.8); Carbon Dioxide 34 mEq/L (19-29); Chloride 95 mEq/L (98-109); Glucose 171 mg/dL (70-99); Osmolality,Calculated 296 (280-300); Potassium 3.5 mEq/L (3.5-4.5); Sodium 139 mEq/L (136-145); eGFR For African Americans > 60 (> 60); eGFR For Non-African Americans > 60 (> 60)
[2017-09-06 03:56] LABS: Hematocrit 39.8 % (35.3-44.9); Hemoglobin 12.3 g/dL (11.5-15.4); Mean Corpuscular HGB Conc 30.9 g/dL (31.6-35.5); Mean Corpuscular Hemoglobin 25.6 pg (28.0-33.3); Mean Corpuscular Volume 82.7 fL (83.0-100.0); Mean Platelet Volume 9.8 fL (9.4-12.4); Platelet Count 290 K/mcL (140-400); Red Blood Count 4.81 M/mcL (3.82-4.97); Red Cell Distribution Width 22.5 % (11.5-14.5)
[2017-09-06 04:14] LABS: Thyroid Stimulating Hormone 5.581 mcIU/mL (0.350-4.840)
[2017-09-06] MEDS: Ipratropium/Albuterol Neb 3 ML IH SCH ×2 (05:02→11:04)
[2017-09-06] MEDS: *HR* Enoxaparin 40 MG/0.4 ML SYRINGE SQ SCH (05:40)
[2017-09-06 07:24] VITALS: BP 129/70
[2017-09-06] MEDS: FLUoxetine 20 MG CAPSULE PO SCH (08:09)
[2017-09-06] MEDS: *HR* OxyCODONE/APAP 7.5/325 TABLET PO PRN (08:09)
[2017-09-06] MEDS: Folic Acid 1 MG TABLET PO SCH (08:09)
[2017-09-06] MEDS: Insulin LISPRO 300 UNITS/3 ML VIAL SQ SCH (08:10)
[2017-09-06] MEDS: Multivit/Ca/Min/Fe/FA 1 TAB TABLET PO SCH (08:10)
[2017-09-06] MEDS: Furosemide 80 MG in 0.9 % Sodium Chloride 50 ML IVPB SCH (08:43)
--- NOTE | 2017-09-06 09:55 | Discharge Summary ---
Date of Encounter: 09/06/17 Time of Encounter: 09:00 - Discharge Diagnosis (1) Acute on chronic respiratory failure with hypoxia and hypercapnia Priority: Primary Status: Acute (2) Emphysema of lung Priority: Secondary Status: Chronic Qualifiers: Emphysema type: panlobular Qualified Code(s): J43.1 - Panlobular emphysema (3) Systemic inflammatory response syndrome (SIRS) associated with organ dysfunction Priority: Secondary Status: Acute (4) Morbid obesity with BMI of 60.0-69.9, adult Priority: Secondary Status: Chronic (5) Diabetes mellitus Priority: Secondary Status: Chronic Qualifiers: Diabetes mellitus type: type 2 Diabetes mellitus complication status: with skin complications Diabetes mellitus complication detail: with other skin ulcer Diabetes mellitus jail insulin use: with petroleum terminal plant operator use Qualified Code(s): E11.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; Z79.4 - FPC (current) use of insulin; Z79.4 - buttermilk drier operator (current) use of insulin; Z79.4 - buttermilk drier operator (current) use of insulin; Z79.4 - buttermilk drier operator (current) use of insulin (6) Acute exacerbation of chronic obstructive airways disease Priority: Secondary Status: Acute (7) Hypercapnia Priority: Secondary Status: Acute (8) TIA (transient ischemic attack) Priority: Secondary Status: Acute Qualifiers: Transient cerebral ischemia type: unspecified Qualified Code(s): G45.9 - Transient cerebral ischemic attack, unspecified (9) Morbid obesity Priority: Secondary Status: Chronic (10) Hypoglycemia Priority: Secondary Status: Acute (11) Venous (peripheral) insufficiency Priority: Secondary Status: Acute (12) Venous ulcer Priority: Secondary Status: Acute (13) Cellulitis of left leg Priority: Secondary Status: Acute (14) History of chronic obstructive pulmonary disease Priority: Secondary Status: Chronic (15) History of sleep apnea Priority: Secondary Status: Chronic (16) COPD exacerbation Priority: Secondary Status: Acute (17) Congestive heart failure Priority: Primary Status: Acute Qualifiers: Congestive heart failure type: unspecified congestive heart failure type Congestive heart failure chronicity: acute on chronic Qualified Code(s): I50.9 - Heart failure, unspecified (18) Hypoxia Priority: Primary Status: Acute (19) DVT prophylaxis Priority: Secondary Status: Acute - Discharge Medications Prescriptions: Furosemide [Lasix] 80 mg PO BID #60 tablet Levothyroxine [Synthroid] 75 mcg PO DAILY 30 Days #30 tablet Losartan [Cozaar] 25 mg PO DAILY 30 Days #30 tablet Melatonin 3 mg PO HS #30 tablet Metoprolol [Lopressor] 50 mg PO BID #60 tablet Home Medications: Cyclobenzaprine [Flexeril] 10 mg PO TID PRN 08/21/16 [History] FLUoxetine HCl [Prozac] 40 mg PO DAILY 08/21/16 [History] Montelukast [Singulair] 10 mg PO DAILY 08/21/16 [History] OxyCODONE/APAP 7.5/325 [Percocet 7.5/325 MG] 1 each PO Q6HR PRN 08/21/16 [ History] Pravastatin Sodium [Pravachol] 40 mg PO DAILY 09/12/16 [History] Albuterol Neb [Proventil Neb] 2.5 mg IH QID PRN 11/13/16 [History] Esomeprazole Magnesium [Nexium 24Hr] 22.3 mg PO DAILY 11/13/16 [History] Oxygen 2 l NS HS 11/13/16 [History] Folic Acid 1 mg PO DAILY 02/20/17 [History] Fluticasone/Salmeterol [Advair 100-50 Diskus] 1 puff IH BID 07/02/17 [History] Insulin Human Regular [HumuLIN R] 10 unit SQ HS 07/02/17 [History] Insulin Human Regular [HumuLIN R] 14 unit SQ BIDWM 07/02/17 [History] Multivitamin [One Daily Essential] 1 tab PO DAILY 07/02/17 [History] Ranitidine HCl [Zantac] 150 mg PO DAILY PRN 07/02/17 [History] Acetaminophen [Tylenol] 650 mg PO Q6HR PRN tablet 09/06/17 [Rx] Albuterol Neb [Proventil Neb] 2.5 mg IH Q2H PRN inhsol 09/06/17 [Rx] Furosemide [Lasix] 80 mg PO BID #60 tablet 09/06/17 [Rx] Ipratropium/Albuterol Neb [Duoneb] 3 ml IH QIDR inhsol 09/06/17 [Rx] Levothyroxine [Synthroid] 75 mcg PO DAILY 30 Days #30 tablet 09/06/17 [Rx] Losartan [Cozaar] 25 mg PO DAILY 30 Days #30 tablet 09/06/17 [Rx] Melatonin 3 mg PO HS #30 tablet 09/06/17 [Rx] Metoprolol [Lopressor] 50 mg PO BID #60 tablet 09/06/17 [Rx] Allergies/Adverse Reactions: 3 Allergy/AdvReac Type Severity Reaction Status Date / Time cetirizine [From [facility]] Allergy Swelling Verified 09/04/17 09:52 of Lip/Tongue/Throat codeine AdvReac Nausea Verified 09/04/17 09:52 lisinopril AdvReac Cough Verified 09/04/17 09:52 Date of admission: 09/03/17 15:38 Primary care physician: PCP NONE Consults: 09/03/17 16:50 Consult to Pharmaceutical Sales Specialist [CONS] Routine Reason for SW Consult: Home oxygen and home health 09/03/17 17:27 Consult to Physical Therapy [CONS] Routine Comment: Evaluate, develop and implement POC Reason for Consult: Debility 09/03/17 17:28 Consult to Occupational Therapy [CONS] Routine Comment: Evaluate, develop and implement POC Reason for Consult: Debility Discharging clinician: Ambrocio Schultz Anticipated date of discharge: 09/06/17 - Patient Status Disposition: Home, Self-Care Condition: Good Functional capacity at discharge: independent ambulation Overall status at discharge: patient is back to baseline - Ambulatory Orders Ambulatory Orders: Basic Metabolic Panel [CHEM] Time Frame: 3 Days, Facility: [facility], Location: Lab Thyroid Stimulating Hormone [CHEM] Time Frame: 4 Weeks, Facility: [facility], Location: Lab - Discharge Instructions Instructions: Heart Failure (GEN) Follow Up With: NONE,PCP [Primary Care Provider] - - Diet and Activity Activity: increase activity as tolerated Interval History: CC: Shortness of breath HPI: Ms. Mcwilliams is a 61 year old female past medical history of diabetes COPD GERD hyperlipidemia hypertension and FAVIOLA. Review of records indicate patient had an echocardiogram in February 2017 which showed an EF of 60%, with diastolic dysfunction. Definite evidence of pulmonary hypertension. According to the patient she is on BiPAP at home however her mask had been damaged. She was without it for approximately 1 month. It appears the past few days she has been experiencing increasing shortness of breath as well as lower extremity edema and increased abdominal girth. She denied any chest pain cough nausea vomiting diarrhea. She has had subjective fevers as well as weight gain. She does admit that she is not compliant to a low-sodium diet. She was admitted and outlying facility [facility]- apparently while there -her respiratory status worsened and became more confused-there was concern about possible intubation and was transferred to this facility for further management. Presently the patient does not appear to be any respiratory distress she is on BiPAP and maintaining saturations. She denies any shortness of breath or chest pain. Previous lab work does show an elevation in her white count ABG with respiratory acidosis but slightly improved from previous ABG. Review of chest x -ray completed on the does show some vascular congestion. She is hemodynamically stable this time. Dr Schultz and I saw patient together and agree on plan . 09/05: Patient continues to improve. She continues to diurese with IV Lasix. She remains on BiPAP at night, as per her routine. She does wake up frequently through the night taking the mask off inadvertently while not being aware of this. She denies any fevers or chills. No chest pain. She states her breathing is almost back to baseline. No wheezing. No cough. No fevers or chills. Her lower extremity edema has improved significantly. 09/06: Patient did well during her hospital stay. She was started on beta taj and ELYSSA inhibitor for improved blood pressure control, as well as twice a day Lasix for which she diuresed well. She was continued on BiPAP at night as per her routine and did well with this also. On day of discharge she was back to her baseline oxygenation of 2 L per nasal cannula and feeling well and asking to go home. Her blood pressure remained under excellent control with Lopressor 50 mg by mouth twice a day, and Cozaar 25 mg by mouth daily. We continued on Lasix at 80 mg by mouth twice a day. He was asked to follow up with her primary care provider next week and will have a BMP in the next 3-4 days to assess renal function. Patient was counseled on CHF discharge instructions, particularly daily weights as 1 way to gauge her volume status. She was notified to instruct her primary care provider immediately should she have any significant gain of weight over a couple pounds. Patient also was noted to have a mildly elevated TSH at 5.58. She was started on Synthroid and will need a repeat TSH in 4-6 weeks. The importance of compliance with BiPAP was emphasized to the patient. Prescribed melatonin to assist with sleep at night, as this seemed to work in the hospital. CHF Core Measures: Echo done in February 2017 No Afib Nonsmoker, ongoing cessation urgerd ARB prescribed Beta Taj prescribed CHF instructions provided and explained to pt A total of 41 minutes was spent on discharge and coordination of care. Hospital course: Ms. Mcwilliams is a 61 year old female - Time Spent with Patient Total time spent providing and/or coordinating discharge services: - Constitutional Vitals: Temp Pulse Resp BP Pulse Ox 97.6 F 79 18 129/70 92 09/06/17 08:10 09/06/17 08:10 09/06/17 08:10 09/06/17 08:10 09/06/17 08:10 General appearance: Present: mild distress, A&O X 3, morbidly obese, answers questions appropriately - Head Head exam: Present: atraumatic, normocephalic - Eye Eye exam: Present: PERRL, conjuntiva pink, sclera anicteric Pupils: Present: PERRL - Respiratory Respiratory exam: Present: CTAB. Absent: accessory muscle use, rales, rhonchi, wheezes - Cardiovascular Additional comments: 1+ edema bilat LE - GI/Abdominal GI/Abdominal exam: Present: normal bowel sounds, soft, no peritoneal signs. Absent: distended, tenderness - Extremities Exam Extremities exam: Present: pedal edema, warm, radial pulses palpable and symmetrical. Absent: calf tenderness, cyanotic - Neurological Exam Neurological exam: Present: CN II-XII intact, oriented X3, no focal deficits. Absent: pronater drift, facial droop, speech deficit - Skin Skin exam: Present: dry, intact
[2017-09-06] MEDS: Budesonide/Formoterol 80/4.5 MDI IH SCH (11:04)
== END 2017-09-06 11:20 | disposition home or self-care (01) | DRG 189 ==
LOC: 2NNU 15:38
PROVIDERS: ADMIT Internal Medicine; ATTEND Internal Medicine

== ENCOUNTER 2017-09-23 12:57 | Inpatient (IN) ==
[2017-09-23] MEDS ORDERED: Ipratropium/Albuterol Neb 3 ML IH ONE (13:08)
[2017-09-23] MEDS ORDERED: predniSONE 20 MG TABLET PO ONE (13:08)
--- NOTE | 2017-09-23 13:16 | Emergency Department Note ---
Disposition Clinical Impression: Acute exacerbation of chronic obstructive airways disease, Hypoxia Acute exacerbation of CHF (congestive heart failure) Qualifiers: Congestive heart failure type: systolic Qualified Code(s): I50.23 - Acute on chronic systolic (congestive) heart failure Disposition: Admitted As Inpatient Condition: Undetermined Referrals: NONE,PCP [Primary Care Provider] - Forms: ED Satisfaction Letter Time of Disposition: 14:13 SOB HPI - General Chief Complaint: ED Shortness of Breath/Dyspnea Stated Complaint: CP/KEELY/CHF Time Seen by Provider: 09/23/17 13:05 Source: patient Mode of arrival: wheelchair Limitations: no limitations Nursing Notes Reviewed: Yes Vital Signs Reviewed: Yes - History of Present Illness 61-year-old female with history of CHF, COPD, diabetes, hypertension, hyperlipidemia, arrives [facility] emergency department complaining of shortness of breath. The patient is on chronic oxygen on 2 L nasal cannula [id number]. The patient states that she was recently admitted for CHF exacerbation. The patient states this was roughly 2 weeks ago. The patient states that earlier today she became continually worsening shortness of breath where she is requiring more oxygen. Upon arrival to the emergency department her O2 saturation was 83% on the 2 L nasal cannula she is chronically on. The patient states she has been using her breathing treatments as prescribed at home. She denies any other complaints at this time other than some myalgias. The patient does have a small amount of retrosternal chest pain as well. The patient states this feels just like her previous CHF exacerbation. The patient states that she has been having increased swelling in her abdomen as well as bilateral lower extremities. Pt Subjective Complaint: shortness of breath Onset (ago): hour(s) (8) Severity: mild, moderate Consistency/Duration: constant, gradually worsening Improves with: oxygen, rest, upright position Worsens with: lying flat, exertion Known history of: COPD, congestive heart failure Associated symptoms: Reports: chest pain, cough, wheezing Treatment prior to arrival: oxygen Cough present: Yes Cough Description: Involuntary, Non-Productive Cough Frequency: Persistent Sputum production: No - Related Data Home oxygen amount: 2 liters Home Medications Medication Instructions Recorded Confirmed Cyclobenzaprine [Flexeril] 10 mg PO TID PRN 08/21/16 09/04/17 FLUoxetine HCl [Prozac] 40 mg PO DAILY 08/21/16 09/04/17 Montelukast [Singulair] 10 mg PO DAILY 08/21/16 09/04/17 OxyCODONE/APAP 7.5/325 [Percocet 1 each PO Q6HR PRN 08/21/16 09/04/17 7.5/325 MG] Pravastatin Sodium [Pravachol] 40 mg PO DAILY 09/12/16 09/04/17 Albuterol Neb [Proventil Neb] 2.5 mg IH QID PRN 11/13/16 09/04/17 Esomeprazole Magnesium [Nexium 22.3 mg PO DAILY 11/13/16 09/04/17 24Hr] Oxygen 2 l NS HS 11/13/16 09/04/17 Folic Acid 1 mg PO DAILY 02/20/17 09/04/17 Fluticasone/Salmeterol [Advair 1 puff IH BID 07/02/17 09/04/17 100-50 Diskus] Insulin Human Regular [HumuLIN R] 10 unit SQ HS 07/02/17 09/04/17 Insulin Human Regular [HumuLIN R] 14 unit SQ BIDWM 07/02/17 09/04/17 Multivitamin [One Daily Essential] 1 tab PO DAILY 07/02/17 09/04/17 Ranitidine HCl [Zantac] 150 mg PO DAILY PRN 07/02/17 09/04/17 Previous Rx's Medication Instructions Recorded Acetaminophen [Tylenol] 650 mg PO Q6HR PRN tablet 09/06/17 Albuterol Neb [Proventil Neb] 2.5 mg IH Q2H PRN inhsol 09/06/17 Furosemide [Lasix] 80 mg PO BID #60 tablet 09/06/17 Ipratropium/Albuterol Neb [Duoneb] 3 ml IH QIDR inhsol 09/06/17 Levothyroxine [Synthroid] 75 mcg PO DAILY 30 Days #30 tablet 09/06/17 Losartan [Cozaar] 25 mg PO DAILY 30 Days #30 tablet 09/06/17 Melatonin 3 mg PO HS #30 tablet 09/06/17 Metoprolol [Lopressor] 50 mg PO BID #60 tablet 09/06/17 Allergies Allergy/AdvReac Type Severity Reaction Status Date / Time cetirizine [From [facility]] Allergy Swelling Verified 09/04/17 09:52 of Lip/Tongue/Throat codeine AdvReac Nausea Verified 09/04/17 09:52 lisinopril AdvReac Cough Verified 09/04/17 09:52 All systems ED: reviewed and negative except as stated. Constitutional: Reports: chills. Denies: fever, weakness ENT ED: Denies: congestion Cardiovascular: Reports: chest pain, dyspnea on exertion, orthopnea, edema. Denies: syncope Respiratory: Reports: dyspnea, wheezes. Denies: cough, hemoptysis, sputum production Gastrointestinal: Denies: abdominal pain, nausea, vomiting Genitourinary: Denies: urgency, dysuria Musculoskeletal: Denies: back pain Integumentary: Denies: rash Neurological: Reports: weakness. Denies: headache, numbness, paresthesias, confusion, vertigo Past Medical History - Past Medical History Attestation: Yes The following information was validated with the patient. Source: patient Medical history: Reports: arthritis, asthma, CHF, COPD, diabetes, GERD, hyperlipidemia, hypertension, osteoporosis, venous stasis, other Surgical history: Reports: other Psychiatric history: Reports: anxiety, depression FEATHER EDGER history: Reports: non-contributory - Social History Smoking Status: Former smoker Smokeless Tobacco Status: No Alcohol use: Reports: none Drug use: Reports: none Physical Exam - General Limitations: no limitations General appearance: alert, in distress (moderate respiratory), obese - Head Head exam: atraumatic, normocephalic, normal inspection - Eye Eye exam: Present: normal appearance, PERRL, EOMI - ENT ENT exam: normal exam, normal oropharynx, mucous membranes moist - Neck Neck exam: Present: normal inspection, full ROM, trachea midline - Chest Chest inspection: Present: normal inspection, symmetric chest wall rise - Respiratory Respiratory exam: Present: other (Decreased breath sounds, mild wheezing on auscultation) - Cardiovascular Cardiovascular exam: Present: regular rate, normal rhythm, normal heart sounds - Abdominal Exam Abdominal exam: Present: soft, Non-Tender, distention. Absent: tenderness, guarding, rebound, rigidity - Extremities Exam Extremities exam: Present: full ROM, pedal edema (3+ pitting with chronic skin changes). Absent: tenderness - Neurological Exam Neurological exam: Present: alert, oriented X3 Course Vital Signs Temperature 98.9 F 09/23/17 13:03 Pulse Rate 93 09/23/17 13:03 Respiratory Rate 24 09/23/17 13:03 Blood Pressure 207/113 09/23/17 13:03 O2 Sat by Pulse Oximetry 93 09/23/17 13:03 Temperature 98.9 F 09/23/17 13:03 Pulse Rate 93 09/23/17 14:00 Respiratory Rate 24 09/23/17 14:00 Blood Pressure 191/84 09/23/17 14:00 O2 Sat by Pulse Oximetry 95 09/23/17 14:00 Oxygen Delivery Oxygen Delivery Nasal Cannula Shortness of Breath/Dyspnea - MDM Narrative Medical decision making narrative: Workup in the emergency department dimensions findings consistent with a CHF exacerbation. We will admit the patient to the hospitalist service at this time , accepted by Dr. Richmond. - Medical Records Medical records reviewed: Yes I reviewed the patient's medical records. - Lab Data Lab results reviewed: Yes I reviewed the patient's lab results. Result diagrams: 09/23/17 13:23 09/23/17 13:23 Lab Results 09/23/17 09/23/17 09/23/17 Range/Units 13:23 13:23 13:23 WBC 13.5 H (4.3-11.1) K/mcL RBC 4.77 (3.82-4.97) M/mcL Hgb 12.5 (11.5-15.4) g/dL Hct 40.2 (35.3-44.9) % MCV 84.3 (83.0-100.0) fL MCH 26.2 L (28.0-33.3) pg MCHC 31.1 L (31.6-35.5) g/dL RDW 20.4 H (11.5-14.5) % Plt Count 329 (140-400) K/mcL MPV 9.9 (9.4-12.4) fL Immature Gran % 0.4 (0-4) % Seg Neutrophils % 87.2 % Lymphocytes % 8.6 % Monocytes % 2.6 % Eosinophils % 0.7 % Basophils % 0.5 % Neutrophils # 11.8 H (1.6-8.9) K/mcL Lymphocytes # 1.2 (0.6-4.6) K/mcL Monocytes # 0.4 (0.0-1.3) K/mcL Eosinophils # 0.1 (0.0-0.6) K/mcL Basophils # 0.1 (0.0-0.2) K/mcL Sodium 142 (136-145) mEq/L Potassium 4.3 (3.5-4.5) mEq/L Chloride 99 (98-109) mEq/L Carbon Dioxide 35 H (19-29) mEq/L BUN 17 (7-20) mg/dL Creatinine 0.71 (0.57-1.11) mg/dL Est GFR ( Amer) > 60 (> 60) Est GFR (Non-Af Amer) > 60 (> 60) BUN/Creatinine Ratio 24 (6-26) Glucose 137 H (70-99) mg/dL Calculated Osmolality 298 (280-300) Calcium 9.8 (8.6-10.8) mg/dL Troponin I 0.01 (0-0.03) ng/mL B-Natriuretic Peptide (0-100) pg/mL //17 Range/Units 13:23 WBC (4.3-11.1) K/mcL RBC (3.82-4.97) M/mcL Hgb (11.5-15.4) g/dL Hct (35.3-44.9) % MCV (83.0-100.0) fL MCH (28.0-33.3) pg MCHC (31.6-35.5) g/dL RDW (11.5-14.5) % Plt Count (140-400) K/mcL MPV (9.4-12.4) fL Immature Gran % (0-4) % Seg Neutrophils % % Lymphocytes % % Monocytes % % Eosinophils % % Basophils % % Neutrophils # (1.6-8.9) K/mcL Lymphocytes # (0.6-4.6) K/mcL Monocytes # (0.0-1.3) K/mcL Eosinophils # (0.0-0.6) K/mcL Basophils # (0.0-0.2) K/mcL Sodium (136-145) mEq/L Potassium (3.5-4.5) mEq/L Chloride (98-109) mEq/L Carbon Dioxide (19-29) mEq/L BUN (7-20) mg/dL Creatinine (0.57-1.11) mg/dL Est GFR ( Amer) (> 60) Est GFR (Non-Af Amer) (> 60) BUN/Creatinine Ratio (6-26) Glucose (70-99) mg/dL Calculated Osmolality (280-300) Calcium (8.6-10.8) mg/dL Troponin I (0-0.03) ng/mL B-Natriuretic Peptide 201 H (0-100) pg/mL - Radiology Data Radiology results reviewed: Yes I reviewed the patient's radiology results. - EKG Data EKG attestation: Yes I reviewed and interpreted this EKG. EKG results narrative: Heart rate 87 bpm period. 168 ms. QTC 378 ms. Normal sinus rhythm. No ST elevation or ST depression noted. EKG similar morphology EKG from 08/31/2017.
[2017-09-23] MEDS ORDERED: Furosemide 40 MG/4 ML VIAL IVP ONE (13:21)
[2017-09-23] MEDS ORDERED: Nitroglycerin 1 INCH/GM PACKET TP ONE (13:21)
[2017-09-23 13:36] LABS: Basophils # 0.1 K/mcL (0.0-0.2); Basophils % 0.5 %; Eosinophils # 0.1 K/mcL (0.0-0.6); Eosinophils % 0.7 %; Hematocrit 40.2 % (35.3-44.9); Hemoglobin 12.5 g/dL (11.5-15.4); Immature Granulocytes % 0.4 % (0-4); Lymphocytes # 1.2 K/mcL (0.6-4.6); Lymphocytes % 8.6 %; Mean Corpuscular HGB Conc 31.1 g/dL (31.6-35.5); Mean Corpuscular Hemoglobin 26.2 pg (28.0-33.3); Mean Corpuscular Volume 84.3 fL (83.0-100.0); Mean Platelet Volume 9.9 fL (9.4-12.4); Monocytes # 0.4 K/mcL (0.0-1.3); Monocytes % 2.6 %; Neutrophils # 11.8 K/mcL (1.6-8.9); Platelet Count 329 K/mcL (140-400); Red Blood Count 4.77 M/mcL (3.82-4.97); Red Cell Distribution Width 20.4 % (11.5-14.5); Segmented Neutrophils % 87.2 %
[2017-09-23 13:43] LABS: BUN/Creatinine Ratio 24 (6-26); Blood Urea Nitrogen 17 mg/dL (7-20); Calcium 9.8 mg/dL (8.6-10.8); Carbon Dioxide 35 mEq/L (19-29); Chloride 99 mEq/L (98-109); Glucose 137 mg/dL (70-99); Osmolality,Calculated 298 (280-300); Potassium 4.3 mEq/L (3.5-4.5); Sodium 142 mEq/L (136-145); eGFR For African Americans > 60 (> 60); eGFR For Non-African Americans > 60 (> 60)
--- NOTE | 2017-09-23 14:12 | Emergency Department Note ---
START Narrative - START START: I examined this patient and my medical decision-making was reviewed with the Resident Physician. I agree with the documented findings, disposition and treatment plan as described except to the extent set forth below. 61 on female presented to the ER with shortness of breath as well as lower extremity swelling. History of COPD and CHF. Has been compliant with her Lasix medications. Patient appears to be back in CHF. She may also have a touch of COPD as we gave her breathing treatments and she will this helped her. She has no chest pain. Chest x-ray demonstrates volume overload. Admit.
[2017-09-23] MEDS ORDERED: Albuterol 2.5 MG/3 ML NEBULIZER IH PRN (15:16)
[2017-09-23] MEDS ORDERED: Acetaminophen 325 MG TABLET PO PRN (15:16)
--- NOTE | 2017-09-23 15:42 | Internal Med History&Physical ---
<Marcial Rosales J - Last Filed: 09/23/17 15:59> Date of Encounter: 09/23/17 Time of Encounter: 15:38 Assessment and Plan (1) Morbid obesity with BMI of 60.0-69.9, adult Current visit: No Status: Chronic Diet and exercise encouraged. Physical therapy consult. Patient uses motorized wheel chair and walker to ambulate (2) Diabetes mellitus Current visit: Yes Status: Chronic EPOCT glucose, Hypoglycemic protocol, continue home insulin shcedule with jesse coverage Qualifiers: Diabetes mellitus type: type 2 Diabetes mellitus complication status: with skin complications Diabetes mellitus complication detail: with other skin ulcer Diabetes mellitus skilled nursing insulin use: with parts counterman use Qualified Code(s): E11.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; Z79.4 - residential (current) use of insulin; Z79.4 - residential (current) use of insulin; Z79.4 - residential (current) use of insulin; Z79.4 - remote computer terminal operator (current) use of insulin (3) COPD exacerbation Current visit: Yes Status: Acute (4) Congestive heart failure Current visit: No Status: Acute Fluid retriction (1000ml daily. laxis 80mg IV BID, trend troponin and cardiac enzymes Qualifiers: Congestive heart failure type: unspecified congestive heart failure type Congestive heart failure chronicity: acute on chronic Qualified Code(s): I50.9 - Heart failure, unspecified (5) DVT prophylaxis Current visit: Yes Status: Acute SCD Internal Medicine - H&P: HPI Admitted From: Home Plans for Post Hospital Care: Home History of present illness: Ms. Mcwilliams is a 61 year old female with medical history that include CHF, COPD and Morbid obesity. She presents with complaint of increased shortness of breath , desaturation and fatigue. She uses oxygen (2L) at home and uses CPAP at night. She denies abdominal pain and headache. Past Med Surg Social Fam HX - Past Medical History Medical history: arthritis, asthma, CHF, COPD, diabetes, GERD, hyperlipidemia, hypertension, osteoporosis, venous stasis, other Psychiatric history: anxiety, depression - Past Surgical History Surgical History: other - Social History Smoking Status: Former smoker Smokeless Tobacco Status: No Alcohol use: none Drug use: none - Family History Brother Living Status: Father Living Status: Mother Living Status: Hx Family Respiratory Disorders: Yes Internal Medicine - H&P: Meds Cyclobenzaprine [Flexeril] 10 mg PO TID PRN 08/21/16 [History] FLUoxetine HCl [Prozac] 40 mg PO DAILY 08/21/16 [History] Montelukast [Singulair] 10 mg PO DAILY 08/21/16 [History] OxyCODONE/APAP 7.5/325 [Percocet 7.5/325 MG] 1 each PO Q6HR PRN 08/21/16 [ History] Pravastatin Sodium [Pravachol] 40 mg PO DAILY 09/12/16 [History] Albuterol Neb [Proventil Neb] 2.5 mg IH QID PRN 11/13/16 [History] Esomeprazole Magnesium [Nexium 24Hr] 22.3 mg PO DAILY 11/13/16 [History] Oxygen 2 l NS HS 11/13/16 [History] Folic Acid 1 mg PO DAILY 02/20/17 [History] Fluticasone/Salmeterol [Advair 100-50 Diskus] 1 puff IH BID 07/02/17 [History] Insulin Human Regular [HumuLIN R] 10 unit SQ HS 07/02/17 [History] Insulin Human Regular [HumuLIN R] 14 unit SQ BIDWM 07/02/17 [History] Multivitamin [One Daily Essential] 1 tab PO DAILY 07/02/17 [History] Ranitidine HCl [Zantac] 150 mg PO DAILY PRN 07/02/17 [History] Acetaminophen [Tylenol] 650 mg PO Q6HR PRN tablet 09/06/17 [Rx] Furosemide [Lasix] 80 mg PO BID #60 tablet 09/06/17 [Rx] Levothyroxine [Synthroid] 75 mcg PO DAILY 30 Days #30 tablet 09/06/17 [Rx] Losartan [Cozaar] 25 mg PO DAILY 30 Days #30 tablet 09/06/17 [Rx] Melatonin 3 mg PO HS #30 tablet 09/06/17 [Rx] Metoprolol [Lopressor] 50 mg PO BID #60 tablet 09/06/17 [Rx] Gabapentin [Neurontin] 300 mg PO TID 09/23/17 [History] 3 Allergy/AdvReac Type Severity Reaction Status Date / Time cetirizine [From [facility]] Allergy Swelling Verified 09/04/17 09:52 of Lip/Tongue/Throat codeine AdvReac Nausea Verified 09/04/17 09:52 lisinopril AdvReac Cough Verified 09/04/17 09:52 All Systems PM: A 10-system review of systems was performed and is negative for pertinent findings except as documented above in the HPI. - Constitutional Constitutional: no chills, no fever(s), no night sweats - EENT Eyes: no change in vision, no discharge, no pain, no photophobia Ears: no ear discharge, no ear pain, no tinnitus Nose, mouth and throat: no dysphagia, no nasal discharge, no neck pain, no sore throat - Cardiovascular Cardiovascular ROS IM: no chest pain, no diaphoresis, no dyspnea, no lightheadedness, no palpitations, no syncope - Respiratory Respiratory: dyspnea, wheezing, no cough, no excessive phlegm production - Gastrointestinal Gastrointestinal: no abdominal pain, no diarrhea, no hematemesis, no hematochezia, no melena, no nausea, no vomiting - Genitourinary Genitourinary: no change in urinary stream, no dysuria, no flank pain, no hematuria - Musculoskeletal Musculoskeletal ROS IM: no numbness, no tingling Additional comments: Bilteral lower extrimity edema - Integumentary Integumentary IM: no rash, no unusual bruising - Neurological Neurological ROS: no confusion, no convulsions, no focal weakness, no numbness, no tingling, no tremor(s) - Hematologic/Lymphatic Hematologic/Lymphatic: no easy bruising - Constitutional Vitals: Temp Pulse Resp BP Pulse Ox 98.9 F 128 20 167/78 93 09/23/17 13:03 09/23/17 14:30 09/23/17 15:22 09/23/17 15:22 09/23/17 14:30 General appearance: Present: A&O X 3, morbidly obese - Head Head exam: Present: atraumatic, normocephalic - Eye Eye exam: Present: PERRL, conjuntiva pink, sclera anicteric Pupils: Present: PERRL - Neck Neck exam general surgery: Present: supple - Respiratory Respiratory exam: Present: decreased breath sounds, wheezes - Cardiovascular Cardiovascular exam: Present: +S2, +S3 - GI/Abdominal GI/Abdominal exam: Present: distended, normal bowel sounds Internal Med - H&P Results - Labs CBC & Chem 7: 09/23/17 13:23 09/23/17 13:23 <Jade Richmond O - Last Filed: 09/24/17 07:30> Date of Encounter: 09/23/17 Internal Medicine - H&P: HPI History of present illness: Ms. Mcwilliams is a 61 year old female All Systems PM: A 10-system review of systems was performed and is negative for pertinent findings except as documented above in the HPI. - Constitutional Vitals: Temp Pulse Resp BP Pulse Ox 97.8 F 76 16 169/97 95 09/24/17 07:14 09/24/17 07:14 09/24/17 07:14 09/24/17 07:14 09/24/17 07:14 Internal Med - H&P Results - Labs CBC & Chem 7: 09/23/17 13:23 09/24/17 06:12 Labs: BMP 09/24/17 06:12 Sodium 143 Potassium 3.9 Chloride 97 L Carbon Dioxide 33 H BUN 16 Creatinine 0.68 Glucose 223 H Calcium 9.6 Cardiac Enzymes 09/23/17 Range/Units 19:22 Troponin I 0.02 (0-0.03) ng/mL - Attending Attestation 61yo female who presented with SOB and found to have CHF exacerbation, I have examined patient and agree with CONTINUOUS CRUSHER OPERATOR documentation. Will continue diuretics, cycle troponins, monitor ins and outs.
[2017-09-23] MEDS: Ipratropium/Albuterol Neb 3 ML IH SCH ×2 (16:33→22:09)
[2017-09-23] MEDS: FLUoxetine 20 MG CAPSULE PO SCH (16:37)
[2017-09-23] MEDS: *HR* OxyCODONE/APAP 7.5/325 TABLET PO PRN ×2 (16:38→23:01)
[2017-09-23] MEDS: Folic Acid 1 MG TABLET PO SCH (16:38)
[2017-09-23] MEDS ORDERED: Insulin Regular, Human 100 UNIT/ML SQ SCH ×2 (17:00→21:00)
[2017-09-23] MEDS: MethylPREDNISolone 40 MG/ML VIAL IVP SCH (17:56)
[2017-09-23] MEDS ORDERED: NON-FORMULARY MEDICATION 1 EACH EACH (Oxygen [Oxygen] 2 L) NS SCH (21:00)
[2017-09-23] MEDS: Gabapentin 300 MG CAPSULE PO SCH (21:44)
[2017-09-23] MEDS: Furosemide 40 MG/4 ML VIAL IVP SCH (21:44)
[2017-09-23] MEDS ORDERED: Insulin LISPRO 300 UNITS/3 ML VIAL SQ SCH (21:45)
[2017-09-23] MEDS: Budesonide/Formoterol 160/4.5 MDI IH SCH (22:09)
[2017-09-23] MEDS ORDERED: Melatonin 3 MG TABLET PO PRN (22:16)
[2017-09-24] MEDS: Ipratropium/Albuterol Neb 3 ML IH SCH ×4 (04:48→23:00)
--- NOTE | 2017-09-24 06:09 | Event Note ---
Date of Encounter: 09/24/17 Time of Encounter: 06:05 Asked by nurse to evaluate the pt since she went into A fib with RVR. Pt denied any CP. However she does c/o palpitations. She denied any h/o A fib before. Reviewed her EKG showed A fib with RVR @ 148. So ordered Cardizem IV push x 1 dose now, also resumed her home med Metoprolol PO 50mg BID first dose now. If HR does not improve will start her on Cardizem gtt.. She does have new onset A fib which was triggered by Resp failure. Her CHADSVASC score 3.. however since this could be triggered by her resp failure, will cont ASA for now.. If she is persistently in A fib, may need anticoagulation. Will sign out to morning team.
[2017-09-24] MEDS: MethylPREDNISolone 40 MG/ML VIAL IVP SCH ×2 (06:19→16:18)
[2017-09-24] MEDS: *HR* Morphine 2 MG/ML SYRINGE IVP PRN ×3 (06:34→22:05)
[2017-09-24 06:54] LABS: BUN/Creatinine Ratio 24 (6-26); Blood Urea Nitrogen 16 mg/dL (7-20); Calcium 9.6 mg/dL (8.6-10.8); Carbon Dioxide 33 mEq/L (19-29); Chloride 97 mEq/L (98-109); Glucose 223 mg/dL (70-99); Osmolality,Calculated 304 (280-300); Potassium 3.9 mEq/L (3.5-4.5); Sodium 143 mEq/L (136-145); eGFR For African Americans > 60 (> 60); eGFR For Non-African Americans > 60 (> 60)
[2017-09-24] MEDS ORDERED: dilTIAZem HCl 100 MG in D5% in Water 50 ML IVC SCH (07:00)
[2017-09-24] MEDS ORDERED: Insulin LISPRO 300 UNITS/3 ML VIAL SQ SCH (08:00)
[2017-09-24] MEDS: FLUoxetine 20 MG CAPSULE PO SCH (08:02)
[2017-09-24] MEDS: Furosemide 40 MG/4 ML VIAL IVP SCH ×2 (08:02→16:18)
[2017-09-24] MEDS: Gabapentin 300 MG CAPSULE PO SCH ×3 (08:02→22:05)
[2017-09-24] MEDS: Folic Acid 1 MG TABLET PO SCH (08:02)
[2017-09-24] MEDS ORDERED: D5% in Water 1,000 ML IVC PRN (09:40)
[2017-09-24] MEDS ORDERED: Dextrose Gel 15 GM PO PRN ×2 (09:40)
[2017-09-24] MEDS ORDERED: *HR* Dextrose 50 % in Water (Syg) 50 ML SYRINGE IVP PRN (09:40)
[2017-09-24] MEDS ORDERED: Ipratropium/Albuterol Neb 3 ML IH PRN (10:47)
--- NOTE | 2017-09-24 10:56 | Internal Med Progress Note ---
Date of Encounter: 09/24/17 Time of Encounter: 10:30 - Assessment and plan (1) Acute on chronic respiratory failure with hypoxia and hypercapnia Current Visit: No Status: Acute Assessment and plan: Likely secondary to CHF exacerbation and COPD exacerbation continue systemic steroids, bronchodilator support, IV diuresis, IV abx O2 supplementation monitor O2 sat, goal O2 sat: 88-92% bipap support as needed monitor strict I/Os, daily weights fluid restriction diet will closely monitor respiratory status Last 2D echo from February 2017: LVEF 60%. Normal LV chamber size, wall thickness and function. Mild left ventricular diastolic dysfunction. Mildly dilated right ventricle with normal function. Moderately dilated left atrium. Mild mitral stenosis suggested by Doppler (MG 5 mmHg, HR 97 bpm). Visually, there is no significant stenosis. No evidence of pulmonary hypertension. (2) Acute exacerbation of chronic obstructive airways disease Current Visit: Yes Status: Acute Assessment and plan: as listed above (3) Acute exacerbation of CHF (congestive heart failure) Current Visit: Yes Status: Acute Assessment and plan: as listed above Qualifiers: Congestive heart failure type: diastolic Qualified Code(s): I50.33 - Acute on chronic diastolic (congestive) heart failure (4) Diabetes mellitus Current Visit: Yes Status: Chronic Assessment and plan: continue home insulin dosing continue sliding scale insulin algorithm monitor fingerstick and blood glucose ADA diet Qualifiers: Diabetes mellitus type: type 2 Diabetes mellitus complication status: with skin complications Diabetes mellitus complication detail: with other skin ulcer Diabetes mellitus chcf insulin use: with chcf use Qualified Code(s): E11.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; Z79.4 - retirement (current) use of insulin; Z79.4 - intermediate project manager (current) use of insulin; Z79.4 - intermediate project manager (current) use of insulin; Z79.4 - retirement (current) use of insulin (5) Hypertension Current Visit: Yes Status: Chronic Assessment and plan: Remains hypertensive continue home dose of Metoprolol, Losartan added Hydralazine 10mg IV q6h PRN SBP>160 if remains hypertensive after receiving home meds, will adjust home meds accordingly Qualifiers: Hypertension type: essential hypertension Qualified Code(s): I10 - Essential (primary) hypertension (6) Morbid obesity with BMI of 60.0-69.9, adult Current Visit: No Status: Chronic (7) DVT prophylaxis Current Visit: Yes Status: Acute Assessment and plan: Heparin SQ - Subjective Interval history: Patient seen and examined at bedside. Resting in bed and reports of feeling better compared to previous day. Currently saturating well on 4L NC however reports of being on 2L NC at home. States for the last month she has been feeling well, been requiring assistance with her daily ADLs provided by her boyfriend. She is morbidly obese and states she has not been able to ambulate much for the last few weeks. Will obtain Physical therapy evaluation Earlier this morning she was noted to be in Afib with RVR. She received Cardizem 20mg IVP and was converted to NSR there after. She received her morning dose of Metoprolol and has remained in NSR since then. Will continue to closely monitor. No prior history of Afib. - Constitutional Vitals: Temp Pulse Resp BP Pulse Ox 97.8 F 76 16 169/97 95 09/24/17 07:14 09/24/17 07:14 09/24/17 07:14 09/24/17 07:14 09/24/17 07:14 General appearance: Present: cooperative, A&O X 3, morbidly obese, no acute distress, answers questions appropriately - Head Head exam: Present: atraumatic, normocephalic - Eye Eye exam: Present: conjuntiva pink, sclera anicteric - Respiratory Respiratory exam: Present: wheezes (diffuse rales and bilateral expiratory wheezing). Absent: accessory muscle use, respiratory distress, tachypnea - Cardiovascular Cardiovascular exam: Present: RRR, +S1, +S2. Absent: diastolic murmur, gallop, rubs, systolic murmur - GI/Abdominal GI/Abdominal exam: Present: normal bowel sounds, soft, no peritoneal signs. Absent: distended, tenderness - Extremities Exam Extremities exam: Present: pedal edema (b/l chronic venous stasis in LE ), warm , radial pulses palpable and symmetrical. Absent: calf tenderness - Neurological Exam Neurological exam: Present: alert, oriented X3 - Psychiatric Psychiatric exam: Present: normal affect, normal mood Internal Medicine: Result - Labs CBC & Chem 7: 09/23/17 13:23 09/24/17 06:12 Labs: BMP 09/24/17 06:12 Sodium 143 Potassium 3.9 Chloride 97 L Carbon Dioxide 33 H BUN 16 Creatinine 0.68 Glucose 223 H Calcium 9.6 Cardiac Enzymes 09/23/17 Range/Units 19:22 Troponin I 0.02 (0-0.03) ng/mL Consult Discharge Plan - Plan Referrals: Katie Taylor MD [Partnered Physician] - 10/02/17 1:30 pm
[2017-09-24] MEDS: Budesonide/Formoterol 160/4.5 MDI IH SCH ×2 (11:27→23:00)
[2017-09-24] MEDS: Insulin LISPRO 300 UNITS/3 ML VIAL SQ SCH ×2 (12:42→17:45)
[2017-09-24] MEDS: Levofloxacin 500 MG/100 ML 500 MG/100 ML BAG IVPB SCH (13:51)
[2017-09-24] MEDS: *HR* Heparin 5,000 UNIT/ML VIAL SQ SCH ×2 (16:18→22:05)
--- NOTE | 2017-09-24 16:27 | Electrocardiograph Report ---
[place] [id number] Test Date: 2017-09-24 Pat Name: Allison Mcwilliams Department: 111 Room: 2NE30 Gender: F Prepress Operator: [facility] : 1955 Requested By: Jenna Grewal Order Number: [id number] Reading MD: Hilda Nicole Measurements Intervals [place] Rate: 148 P: MD: 0 QRS: 70 QRSD: 102 T: 51 QT: 266 QTc: 351 Interpretive Statements ATRIAL FIBRILLATION WITH RAPID VENTRICULAR RESPONSE NONSPECIFIC ST & T-WAVE ABNORMALITY ABNORMAL RHYTHM ECG Electronically Signed On 09-24-2017 16:25:53 EST by Hilda Nicole
--- NOTE | 2017-09-24 16:45 | Electrocardiograph Report ---
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
[2017-09-25 04:11] LABS: Basophils % 0.1 %; Hematocrit 38.9 % (35.3-44.9); Hemoglobin 12.1 g/dL (11.5-15.4); Immature Granulocytes % 0.5 % (0-4); Lymphocytes # 1.2 K/mcL (0.6-4.6); Lymphocytes % 10.8 %; Mean Corpuscular HGB Conc 31.1 g/dL (31.6-35.5); Mean Corpuscular Hemoglobin 26.1 pg (28.0-33.3); Mean Platelet Volume 10.2 fL (9.4-12.4); Monocytes # 0.6 K/mcL (0.0-1.3); Monocytes % 5.6 %; Neutrophils # 9.3 K/mcL (1.6-8.9); Platelet Count 335 K/mcL (140-400); Red Blood Count 4.63 M/mcL (3.82-4.97); Red Cell Distribution Width 20.4 % (11.5-14.5)
[2017-09-25 04:23] LABS: BUN/Creatinine Ratio 32 (6-26); Blood Urea Nitrogen 25 mg/dL (7-20); Calcium 9.6 mg/dL (8.6-10.8); Carbon Dioxide 35 mEq/L (19-29); Chloride 96 mEq/L (98-109); Glucose 217 mg/dL (70-99); Magnesium 1.6 mg/dL (1.6-2.6); Osmolality,Calculated 305 (280-300); Phosphorous 3.5 mg/dL (2.3-4.7); Potassium 4.2 mEq/L (3.5-4.5); Sodium 142 mEq/L (136-145); eGFR For African Americans > 60 (> 60); eGFR For Non-African Americans > 60 (> 60)
[2017-09-25] MEDS: Ipratropium/Albuterol Neb 3 ML IH SCH ×5 (05:13→20:15)
[2017-09-25] MEDS: *HR* Heparin 5,000 UNIT/ML VIAL SQ SCH ×3 (06:17→22:34)
[2017-09-25] MEDS: MethylPREDNISolone 40 MG/ML VIAL IVP SCH ×2 (06:17→17:17)
[2017-09-25] MEDS: *HR* OxyCODONE/APAP 7.5/325 TABLET PO PRN ×2 (06:17→14:46)
[2017-09-25] MEDS: Furosemide 40 MG/4 ML VIAL IVP SCH ×2 (09:50→17:17)
[2017-09-25] MEDS: Gabapentin 300 MG CAPSULE PO SCH ×3 (09:50→22:33)
[2017-09-25] MEDS: Insulin LISPRO 300 UNITS/3 ML VIAL SQ SCH ×3 (09:50→17:17)
[2017-09-25] MEDS: FLUoxetine 20 MG CAPSULE PO SCH (09:51)
[2017-09-25] MEDS: Levofloxacin 500 MG/100 ML 500 MG/100 ML BAG IVPB SCH (09:51)
[2017-09-25] MEDS: Folic Acid 1 MG TABLET PO SCH (09:54)
[2017-09-25] MEDS: Budesonide/Formoterol 160/4.5 MDI IH SCH ×2 (10:22→20:17)
[2017-09-25] MEDS: Nystatin POWDER 30 GM BOTTLE TP SCH ×2 (14:54→22:34)
--- NOTE | 2017-09-25 17:18 | Electrocardiograph Report ---
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 : 1955 Requested By: Jenna rGewal Order Number: [id number] Reading MD: Hilda Nicole Measurements Intervals [place] Rate: 69 P: 53 FL: 177 QRS: 56 QRSD: 97 T: 53 QT: 380 QTc: 399 Interpretive Statements SINUS RHYTHM WITH SINUS ARRHYTHMIA Electronically Signed On 09-25-2017 17:17:06 EST by Hilda Nicole
--- NOTE | 2017-09-25 18:30 | Internal Med Progress Note ---
Date of Encounter: 09/25/17 Time of Encounter: 15:00 - Assessment and plan (1) Acute on chronic respiratory failure with hypoxia and hypercapnia Current Visit: No Status: Acute (2) Acute systolic CHF (congestive heart failure) Current Visit: Yes Status: Acute (3) Emphysema of lung Current Visit: No Status: Chronic Qualifiers: Emphysema type: panlobular Qualified Code(s): J43.1 - Panlobular emphysema (4) Morbid obesity with BMI of 60.0-69.9, adult Current Visit: No Status: Chronic (5) Hypertension Current Visit: Yes Status: Chronic Assessment and plan: STILL WHEEZY, WILL SWITCH NEBS FROM PRN TO SCHEDULED AND ADD MUCOMYST. CONTINUE STEROIDS, DOSE DECREASED DUE TO HYPERGLYCEMIA CONTINUE DIURETICS, MONITOR INS AND OUTS HYPOTHYROIDISM- CONT SYNTHTOID CONT STATIN. CONT GI AND DVT PROPHYLAXIS. Qualifiers: Hypertension type: essential hypertension Qualified Code(s): I10 - Essential (primary) hypertension - Subjective Interval history: STILL SHORT OF BREATH AND WHEEZY - Constitutional Vitals: Temp Pulse Resp BP Pulse Ox 98.6 F 75 18 174/88 94 09/25/17 15:47 09/25/17 15:47 09/25/17 16:02 09/25/17 15:47 09/25/17 16:02 General appearance: Present: cooperative, A&O X 3, morbidly obese, no acute distress, answers questions appropriately - Head Head exam: Present: atraumatic, normocephalic - Eye Eye exam: Present: PERRL, conjuntiva pink, sclera anicteric Pupils: Present: PERRL - Neck Neck exam general surgery: Present: supple, trachea midline. Absent: lymphadenopathy - Respiratory Respiratory exam: Present: decreased breath sounds, wheezes. Absent: accessory muscle use, CTAB, rales, rhonchi - Cardiovascular Cardiovascular exam: Present: RRR, +S1, +S2. Absent: diastolic murmur, gallop, rubs, systolic murmur - GI/Abdominal GI/Abdominal exam: Present: normal bowel sounds, soft, no peritoneal signs. Absent: distended, tenderness - Extremities Exam Extremities exam: Present: warm, radial pulses palpable and symmetrical. Absent : calf tenderness, cyanotic, pedal edema - Neurological Exam Neurological exam: Present: CN II-XII intact, oriented X3, no focal deficits. Absent: pronater drift, facial droop, speech deficit - Skin Skin exam: Present: dry, intact Internal Medicine: Result - Labs CBC & Chem 7: 09/25/17 03:40 09/25/17 03:40 Labs: Short CBC 09/25/17 Range/Units 03:40 WBC 11.2 H (4.3-11.1) K/mcL Hgb 12.1 (11.5-15.4) g/dL Hct 38.9 (35.3-44.9) % Plt Count 335 (140-400) K/mcL Neutrophils # 9.3 H (1.6-8.9) K/mcL BMP 09/25/17 03:40 Sodium 142 Potassium 4.2 Chloride 96 L Carbon Dioxide 35 H BUN 25 H Creatinine 0.78 Glucose 217 H Calcium 9.6 Consult Discharge Plan - Plan Referrals: Katie Taylor MD [Partnered Physician] - 10/02/17 1:30 pm
[2017-09-25] MEDS: Acetylcysteine 10% 2 ML INHSOL IH SCH (20:16)
[2017-09-25] MEDS: *HR* Morphine 2 MG/ML SYRINGE IVP PRN (22:33)
[2017-09-26] MEDS: Acetylcysteine 10% 2 ML INHSOL IH SCH ×4 (00:16→11:32)
[2017-09-26] MEDS: Ipratropium/Albuterol Neb 3 ML IH SCH ×4 (00:17→11:32)
[2017-09-26] MEDS: *HR* Heparin 5,000 UNIT/ML VIAL SQ SCH (06:52)
[2017-09-26] MEDS: MethylPREDNISolone 40 MG/ML VIAL IVP SCH (06:52)
[2017-09-26 07:04] VITALS: BP 156/75
[2017-09-26] MEDS: Budesonide/Formoterol 160/4.5 MDI IH SCH (08:20)
[2017-09-26] MEDS: FLUoxetine 20 MG CAPSULE PO SCH (08:22)
[2017-09-26] MEDS: *HR* OxyCODONE/APAP 7.5/325 TABLET PO PRN (08:23)
[2017-09-26] MEDS: Furosemide 40 MG/4 ML VIAL IVP SCH (08:23)
[2017-09-26] MEDS: Folic Acid 1 MG TABLET PO SCH (08:23)
[2017-09-26] MEDS: Gabapentin 300 MG CAPSULE PO SCH (08:23)
[2017-09-26] MEDS: Levofloxacin 500 MG/100 ML 500 MG/100 ML BAG IVPB SCH (08:24)
[2017-09-26] MEDS: Insulin LISPRO 300 UNITS/3 ML VIAL SQ SCH ×2 (08:24→12:14)
--- NOTE | 2017-09-26 11:46 | Discharge Summary ---
Date of Encounter: 09/26/17 Time of Encounter: 11:15 - Discharge Diagnosis (1) Acute on chronic respiratory failure with hypoxia and hypercapnia Priority: Primary Status: Resolved (2) Acute exacerbation of CHF (congestive heart failure) Priority: Secondary Status: Acute Qualifiers: Congestive heart failure type: diastolic Qualified Code(s): I50.33 - Acute on chronic diastolic (congestive) heart failure (3) Acute exacerbation of chronic obstructive airways disease Priority: Secondary Status: Acute (4) Diabetes mellitus Priority: Secondary Status: Chronic Qualifiers: Diabetes mellitus type: type 2 Diabetes mellitus complication status: with skin complications Diabetes mellitus complication detail: with other skin ulcer Diabetes mellitus rat exterminator insulin use: with rat exterminator use Qualified Code(s): E11.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; Z79.4 - long-term (current) use of insulin; Z79.4 - rat exterminator (current) use of insulin; Z79.4 - rat exterminator (current) use of insulin; Z79.4 - long-term (current) use of insulin (5) Hypertension Priority: Secondary Status: Chronic Qualifiers: Hypertension type: essential hypertension Qualified Code(s): I10 - Essential (primary) hypertension (6) Morbid obesity Priority: Secondary Status: Chronic - Discharge Medications Prescriptions: GuaiFENesin ER [Mucinex] 600 mg PO BID #30 tbbp.12hr levoFLOXacin [Levofloxacin] 500 mg PO DAILY #7 tablet Losartan [Cozaar] 50 mg PO DAILY #60 tablet Nystatin POWDER [Nystop] 1 appl TP BID #1 bottle predniSONE [PredniSONE] 10 mg PO DAILY 8 Days tablet Home Medications: Cyclobenzaprine [Flexeril] 10 mg PO TID PRN 08/21/16 [History] FLUoxetine HCl [Prozac] 40 mg PO DAILY 08/21/16 [History] Montelukast [Singulair] 10 mg PO DAILY 08/21/16 [History] OxyCODONE/APAP 7.5/325 [Percocet 7.5/325 MG] 1 each PO Q6HR PRN 08/21/16 [ History] Pravastatin Sodium [Pravachol] 40 mg PO DAILY 09/12/16 [History] Albuterol Neb [Proventil Neb] 2.5 mg IH QID PRN 11/13/16 [History] Esomeprazole Magnesium [Nexium 24Hr] 22.3 mg PO DAILY 11/13/16 [History] Oxygen 2 l NS HS 11/13/16 [History] Folic Acid 1 mg PO DAILY 02/20/17 [History] Fluticasone/Salmeterol [Advair 100-50 Diskus] 1 puff IH BID 07/02/17 [History] Insulin Human Regular [HumuLIN R] 10 unit SQ HS 07/02/17 [History] Insulin Human Regular [HumuLIN R] 14 unit SQ BIDWM 07/02/17 [History] Multivitamin [One Daily Essential] 1 tab PO DAILY 07/02/17 [History] Ranitidine HCl [Zantac] 150 mg PO DAILY PRN 07/02/17 [History] Acetaminophen [Tylenol] 650 mg PO Q6HR PRN tablet 09/06/17 [Rx] Furosemide [Lasix] 80 mg PO BID #60 tablet 09/06/17 [Rx] Levothyroxine [Synthroid] 75 mcg PO DAILY 30 Days #30 tablet 09/06/17 [Rx] Melatonin 3 mg PO HS #30 tablet 09/06/17 [Rx] Metoprolol [Lopressor] 50 mg PO BID #60 tablet 09/06/17 [Rx] Gabapentin [Neurontin] 300 mg PO TID 09/23/17 [History] GuaiFENesin ER [Mucinex] 600 mg PO BID #30 tbbp.12hr 09/26/17 [Rx] Losartan [Cozaar] 50 mg PO DAILY #60 tablet 09/26/17 [Rx] Nystatin POWDER [Nystop] 1 appl TP BID #1 bottle 09/26/17 [Rx] levoFLOXacin [Levofloxacin] 500 mg PO DAILY #7 tablet 09/26/17 [Rx] predniSONE [PredniSONE] 10 mg PO DAILY 8 Days tablet 09/26/17 [Rx] Allergies/Adverse Reactions: 3 Allergy/AdvReac Type Severity Reaction Status Date / Time cetirizine [From [facility]] Allergy Swelling Verified 09/04/17 09:52 of Lip/Tongue/Throat codeine AdvReac Nausea Verified 09/04/17 09:52 lisinopril AdvReac Cough Verified 09/04/17 09:52 Procedures/tests Complete & Pending: Procedures Performed prior 72 hours Category Date Time Status ECG 12 lead ECG [ECG] Routine Y 09/24/17 06:08 Completed Date of admission: 09/24/17 10:45 Primary care physician: PCP NONE Consults: 09/24/17 10:53 Consult to Physical Therapy [CONS] Routine Comment: Evaluate, develop and implement POC Reason for Consult: evaluation for placement 09/24/17 10:54 Consult to Occupational Therapy [CONS] Routine Comment: Evaluate, develop and implement POC Reason for Consult: evaluation for placement 09/24/17 16:01 Consult to Retail Team Member [CONS] Routine Reason for SW Consult: Self pay; no rx coverage Discharging clinician: Silvia Colon Anticipated date of discharge: 09/26/17 - Patient Status Disposition: Home, Self-Care Condition: Good Functional capacity at discharge: wheelchair bound Overall status at discharge: patient is progressing back to baseline - Discharge Instructions Instructions: Heart Failure (DC), Acute Respiratory Distress Syndrome (DC), Chronic Obstructive Pulmonary Disease (DC), Chronic Hypertension (DC) Follow Up With: Kaite Taylor MD [Partnered Physician] - 10/02/17 1:30 pm Additional Instructions: Follow up with cardiology in 1-2 weeks. Follow up with pulmonology in 3-4 weeks - Diet and Activity Activity: increase activity as tolerated Diet: low fat, low cholesterol, low salt diet, other (Fluid restriction to 1.8 L per 24 hours) Hospital course: Ms. Mcwilliams is a 61 year old female patient with history of CHF, COPD and morbid obesity was hospitalized here with acute respiratory failure related to COPD exacerbation and congestive heart failure. She was started on treatment for these conditions with intravenous steroids, bronchodilators and intravenous Lasix. Her symptoms have slowly improved and she is now back to her baseline. She is on 3 L O2 supplementation at home via nasal cannula. She will continue to use this and also uses CPAP at night. She will be discharged on short course of steroid taper and oral levofloxacin. She will follow up with pulmonology for further management of COPD. She will continue to take Lasix 80 mg twice daily for her CHF. - Time Spent with Patient Total time spent providing and/or coordinating discharge services: Greater than 30 minutes (35 min) - Constitutional Vitals: Temp Pulse Resp BP Pulse Ox 97.8 F 68 16 156/75 95 09/26/17 11:10 09/26/17 11:10 09/26/17 11:32 09/26/17 08:31 09/26/17 11:32 General appearance: Present: cooperative, A&O X 3, morbidly obese, no acute distress, answers questions appropriately - Respiratory Respiratory exam: Present: CTAB. Absent: accessory muscle use, rales, rhonchi, wheezes - Cardiovascular Cardiovascular exam: Present: RRR, +S1, +S2. Absent: diastolic murmur, gallop, rubs, systolic murmur - GI/Abdominal GI/Abdominal exam: Present: normal bowel sounds, soft, no peritoneal signs. Absent: distended, tenderness - Extremities Exam Extremities exam: Present: pedal edema (bilateral ), warm, radial pulses palpable and symmetrical. Absent: calf tenderness, cyanotic - Neurological Exam Neurological exam: Present: CN II-XII intact, oriented X3, no focal deficits. Absent: facial droop, speech deficit
--- NOTE | 2017-09-26 12:00 | Physician Discharge Referral ---
Home Health/Hosp Referral Info Transfer to: Home Health Provider in Charge Post Discharge: PCP - Diagnosis (1) Acute on chronic respiratory failure with hypoxia and hypercapnia Priority: Primary Status: Resolved (2) Acute exacerbation of CHF (congestive heart failure) Priority: Secondary Status: Acute (3) Acute exacerbation of chronic obstructive airways disease Priority: Secondary Status: Acute (4) Diabetes mellitus Priority: Secondary Status: Chronic (5) Hypertension Priority: Secondary Status: Chronic (6) Morbid obesity Priority: Secondary Status: Chronic - Respiratory Orders Oxygen / L per min (3) Smoking Cessation: Smoking cessation has been advised. For more information, call the [place] Tobacco Quit Line at 1-433-IYAY-NOW. - Diet/Nutrition Diet/Nutrition Orders: Cardiac, No Concentrated Sweets (diabetic) - Activity Activity Orders: Walker - Services Needed Following services are medically necessary services: Nursing, Physical Therapy, Occupational Therapy - Transfer Medications Prescriptions: GuaiFENesin ER [Mucinex] 600 mg PO BID #30 tbbp.12hr levoFLOXacin [Levofloxacin] 500 mg PO DAILY #7 tablet Losartan [Cozaar] 50 mg PO DAILY #60 tablet Nystatin POWDER [Nystop] 1 appl TP BID #1 bottle predniSONE [PredniSONE] 10 mg PO DAILY 8 Days tablet Home Medications: Cyclobenzaprine [Flexeril] 10 mg PO TID PRN 08/21/16 [History] FLUoxetine HCl [Prozac] 40 mg PO DAILY 08/21/16 [History] Montelukast [Singulair] 10 mg PO DAILY 08/21/16 [History] OxyCODONE/APAP 7.5/325 [Percocet 7.5/325 MG] 1 each PO Q6HR PRN 08/21/16 [ History] Pravastatin Sodium [Pravachol] 40 mg PO DAILY 09/12/16 [History] Albuterol Neb [Proventil Neb] 2.5 mg IH QID PRN 11/13/16 [History] Esomeprazole Magnesium [Nexium 24Hr] 22.3 mg PO DAILY 11/13/16 [History] Oxygen 2 l NS HS 11/13/16 [History] Folic Acid 1 mg PO DAILY 02/20/17 [History] Fluticasone/Salmeterol [Advair 100-50 Diskus] 1 puff IH BID 07/02/17 [History] Insulin Human Regular [HumuLIN R] 10 unit SQ HS 07/02/17 [History] Insulin Human Regular [HumuLIN R] 14 unit SQ BIDWM 07/02/17 [History] Multivitamin [One Daily Essential] 1 tab PO DAILY 07/02/17 [History] Ranitidine HCl [Zantac] 150 mg PO DAILY PRN 07/02/17 [History] Acetaminophen [Tylenol] 650 mg PO Q6HR PRN tablet 09/06/17 [Rx] Furosemide [Lasix] 80 mg PO BID #60 tablet 09/06/17 [Rx] Levothyroxine [Synthroid] 75 mcg PO DAILY 30 Days #30 tablet 09/06/17 [Rx] Melatonin 3 mg PO HS #30 tablet 09/06/17 [Rx] Metoprolol [Lopressor] 50 mg PO BID #60 tablet 09/06/17 [Rx] Gabapentin [Neurontin] 300 mg PO TID 09/23/17 [History] GuaiFENesin ER [Mucinex] 600 mg PO BID #30 tbbp.12hr 09/26/17 [Rx] Losartan [Cozaar] 50 mg PO DAILY #60 tablet 09/26/17 [Rx] Nystatin POWDER [Nystop] 1 appl TP BID #1 bottle 09/26/17 [Rx] levoFLOXacin [Levofloxacin] 500 mg PO DAILY #7 tablet 09/26/17 [Rx] predniSONE [PredniSONE] 10 mg PO DAILY 8 Days tablet 09/26/17 [Rx] Allergies/Adverse Reactions: 3 Allergy/AdvReac Type Severity Reaction Status Date / Time cetirizine [From [facility]] Allergy Swelling Verified 09/04/17 09:52 of Lip/Tongue/Throat codeine AdvReac Nausea Verified 09/04/17 09:52 lisinopril AdvReac Cough Verified 09/04/17 09:52 Certification: Further, I certify that my clinical findings support that this patient is homebound (i.e. absences from home require considerable and taxing effort and are for medical reasons or orthodox services or infrequently or short duration when for other reasons) because: Homebound Reason: Patient requires assistance of a person or device to safely leave home Attestation: My signature below is to certify that this patient is under my care and that I, or nurse practitioner, or a physician's assistant professor of education working with me, has a face-to -face encounter with this patient.
[2017-09-26] MEDS: Nystatin POWDER 30 GM BOTTLE TP SCH (12:10)
== END 2017-09-26 14:22 | disposition home or self-care (01) | DRG 291 ==
LOC: 2NENU 12:57 → EMEROO 12:57 → 2NENU 15:27 → SUATTDRO 09-24 10:45
PROVIDERS: ADMIT Internal Medicine; ATTEND Internal Medicine